=== PATIENT | female | born 1955 | race Caucasian/White ===

== ENCOUNTER 2018-04-08 21:58 | Emergency (ER) | payer OTHER ==
--- NOTE | 2018-04-08 23:36 | ER ---
Nurse's Notes [facility] Name: Rhona Muller Age: 63 yrs Sex: Female : 1955 Arrival Date: 04/08/2018 Time: 22:01 Bed 27 Private MD: Charles Raphael S Diagnosis: Subdural hematoma Presentation: 04/08 22:17 Presenting complaint: EMS states: patient is a resident at [facility]. A staff member kr2 saw her walking and then fall to the floor. They state they immediately went over to her, she was awake, no obvious injuries. She has a history of falls and bruise noted to left shoulder. Care prior to arrival: Cervical collar in place. Placed on backboard. Mechanism of Injury: Fall from standing position. Trauma event details: Injury occurred in the [facility], Injury occurred: in a public building. Injury occurred: April 08, 2018 Injury occurred at: 22:00. 22:17 Acuity: ROYER 3 kr2 22:17 Method Of Arrival: EMS: [facility] kr2 22:25 Transition of care: patient was not received from another setting of care. Onset of kr2 symptoms was April 08, 2018. Risk Assessment: Do you want to hurt yourself or someone else? Patient reports no desire to harm self or others. Initial Sepsis Screen: Does the patient meet any 2 criteria? No. Patient's initial sepsis screen is negative. Does the patient have a suspected source of infection? No. Patient's initial sepsis screen is negative. Trauma Activation: Not Applicable Physician: ED Physician; Name: ; Notified At: ; Arrived At: Physician: General Surgeon; Name: ; Notified At: ; Arrived At: Physician: Radiology; Name: ; Notified At: ; Arrived At: Physician: Respiratory; Name: ; Notified At: ; Arrived At: Physician: Lab; Name: ; Notified At: ; Arrived At: Historical: - Allergies: 22:32 Xylocaine; kr2 - Home Meds: 22:32 amitriptyline 10 mg Oral tab 1 tab daily [Active]; Restoril 7.5 mg Oral cap 2 caps once kr2 daily [Active]; Sinemet 25-100 mg Oral tab 2 tabs daily [Active]; meloxicam 15 mg oral tab 1 tab once daily [Active]; rivastigimine patch 24 hour 1 patch daily [Active]; 23:03 docusate sodium 100 mg Oral cap 1 cap once daily [Active]; aspirin 81 mg Oral TbEC 1 kr2 tab once daily [Active]; lisinopril 10 mg Oral tab 1 tab once daily [Active]; levothyroxine 50 mcg tab 1 tab once daily [Active]; Sinemet 25-100 mg Oral tab 1 tab twice a day [Active]; Creon 24,000-76,000 -120,000 unit oral cpDR 1 caps 3 times per day [Active]; entacapone 200 mg oral tab 1 tab 2 times per day [Active]; metoprolol tartrate 25 mg Oral tab 1 tab 2 times per day [Active]; folic acid 1 mg Oral tab 1 tab twice a day [Active]; polyethylene glycol 3350 17 gram/dose oral powd once daily [Active]; - PMHx: 22:32 Anemia; dysphagia; Hypertension; Hyperlipidemia; Depression; cognitive impairment; kr2 Parkinsons; lack of coordination; cognitive communition deficit; GERD; Hypothyroidism; metabolic encephalopathy; muscle weakness; polyosteoarthritis; - PSHx: 23:03 Nerve stimulator for Parkinson's; kr2 - Immunization history: Last tetanus immunization: unknown. - Social history:: Smoking status: Patient/guardian denies using tobacco. - Ebola Screening: : No symptoms or risks identified at this time. Screenin:17 Abuse screen: Denies threats or abuse. Denies injuries from another. Nutritional kr2 screening: No deficits noted. Tuberculosis screening: No symptoms or risk factors identified. Fall Risk Fall in past 12 months (25 points). Secondary diagnosis (15 points) impaired mobility, Parkinson's. Gait- Impaired (20 pts.). Mental Status- Overestimates/Forgets Limitations (15 pts.). Primary Survey: 22:22 A: Airway: patent. Breathing/Chest: Respiratory pattern: regular, Respiratory effort: kr2 spontaneous, unlabored, Breath sounds: clear, bilaterally. Chest inspection: symmetrical rise and fall of the chest. Circulation: Heart tones present. Skin color: pink, Skin temperature: warm, dry. Disability Alert. 22:50 Reassessment Breathing/Chest Respiratory pattern Regular Respiratory effort Spontaneous kr2 Unlabored Breath sounds Clear Chest inspection Symmetrical. Assessment: 22:17 General: Appears in no apparent distress. comfortable, well groomed, Behavior is calm, kr2 cooperative. Pain: Complains of pain in left arm Unable to use pain scale. Does not appear to understand pain scale. Patient appears to be grimacing, to be guarding. Neuro: Level of Consciousness is awake, alert, Oriented to person, History of Parkinson's, unable to clearly verbalize thoughts. Job Setter are equal bilaterally Facial symmetry appears normal. 22:54 Reassessment: Patient appears in no apparent distress at this time. Patient and/or kr2 family updated on plan of care and expected duration. Pain level reassessed. Patient returned from radiology department at this time. Cardiovascular: Capillary refill < 3 seconds in bilateral fingers Patient's skin is warm and dry. Respiratory: Airway is patent Respiratory effort is even, unlabored, Respiratory pattern is regular, symmetrical. GI: Abdomen is flat, non-distended, Bowel sounds present X 4 quads. EENT: Nares are clear bilaterally Oral mucosa is moist. Derm: Skin is intact, with poor turgor Skin is pink, warm \T\ dry. Bruising that is yellow, on left eye and left mormon. Musculoskeletal: Circulation, motion, and sensation intact. Swelling present in left elbow. 04/09 01:01 Reassessment: Patient appears in no apparent distress at this time. Patient and/or kr2 family updated on plan of care and expected duration. Pain level reassessed. Patient is alert, oriented x 3, equal unlabored respirations, skin warm/dry/pink. Spoke with nurse José Miguel at [facility] and informed them of need for transfer. Vital Signs: 04/08 22:23 BP 124 / 50; Pulse 63; Resp 18; Temp 98.3; Pulse Ox 100% on R/A; Weight 48.99 kg; kr2 Height 5 ft. 7 in. (170.18 cm); 04/09 00:00 BP 128 / 78; Pulse 66; Resp 17; Pulse Ox 100% ; kr2 01:05 BP 127 / 67; Pulse 67; Resp 17; Pulse Ox 100% ; kr2 04/08 22:23 Body Mass Index 16.92 (48.99 kg, 170.18 cm) kr2 [place] Coma Score: 04/08 22:23 Eye Response: spontaneous(4). Verbal Response: incomprehensible(2). Motor Response: kr2 obeys commands(6). Total: 12. Trauma Score (Adult): 22:23 Eye Response: spontaneous(1); Verbal Response: incomprehensible(0); Motor Response: kr2 obeys commands(2); Systolic BP: > 89 mm Hg(4); Respiratory Rate: 10 to 29 per min(4); Andria Score: 12; Trauma Score: 11 ED Course: 22:01 Patient arrived in ED. ds1 22:10 Charles Raphael MD is Private Physician. ds1 22:15 Patient has correct armband on for positive identification. Bed in low position. Call kr2 light in reach. Side rails up X2. Adult w/ patient. Pulse ox on. NIBP on. Door closed. Warm blanket given. Dr. Laguerre and JOSE ALBERTO Valenzuela at bedside, backboard removed by physician while maintaining C-Spine immobilization. 22:15 Patient maintains SpO2 saturation greater than 95% on room air. Thermoregulation: warm kr2 blanket given to patient. 22:17 Kayla Lowery RN is Primary Nurse. kr2 22:18 Mikie Laguerre MD is Attending Physician. tw4 22:20 Triage completed. kr2 22:[address] via stretcher. jg6 22:25 Arm band placed on right wrist. kr2 22:42 CT Head C Spine In Process Unspecified. EDMS 22:51 Elbow Left 3 View XRAY In Process Unspecified. EDMS 22:51 Humerus Left XRAY In Process Unspecified. EDMS 23:30 Missed attempt(s): 22 gauge in right antecubital area. Bleeding controlled, band aid kr2 applied, catheter tip intact. 23:35 Inserted saline lock: 20 gauge in right forearm, using aseptic technique. Blood kr2 collected. 04/09 01:03 No provider procedures requiring assistance completed. Patient transferred, IV remains kr2 in place. Administered Medications: No medications were administered Intake: 01:04 PO: 0ml; Total: 0ml. kr2 Outcome: 04/08 23:35 ER care complete, transfer ordered by . tw4 04/09 01:03 Transferred by ground EMS to [facility], Transfer form completed. kr2 X-rays sent w/ patient. Note: Spouse with patient Condition: stable Instructed on the need for admit, Demonstrated understanding of instructions. 01:04 Patient's length of stay was not longer than 2 hours. kr2 01:06 Patient left the ED. kr2 Signatures: Dispatcher [employer] EDCiera Daniel ds1 Kayla Lowery RN RN kr2 Mikie Laguerre MD MD tw4 Kim [email or web address]
--- NOTE | 2018-04-08 23:36 | EDPHYS ---
Physician Documentation [facility] Name: Rhona Muller Age: 63 yrs Sex: Female : 1955 Arrival Date: 04/08/2018 Time: 22:01 Bed 27 Private MD: Charles Raphael S ED Physician Mikie Laguerre HPI: 04/09 00:16 This 63 yrs old Female presents to ER via EMS with complaints of Fall Injury. tw4 00:16 Details of fall: The patient fell from an upright position, while standing. Onset: The tw4 symptoms/episode began/occurred today. Associated injuries: The patient sustained injury to the head, contusion. Severity of symptoms: At their worst the symptoms were mild, in the emergency department the symptoms are unchanged. Unable to obtain HPI due to baseline dementia. The patient has experienced similar episodes in the past, a few times, patient has has a recent of falls . Historical: - Allergies: 04/08 22:32 Xylocaine; kr2 - Home Meds: 22:32 amitriptyline 10 mg Oral tab 1 tab daily [Active]; Restoril 7.5 mg Oral cap 2 caps once kr2 daily [Active]; Sinemet 25-100 mg Oral tab 2 tabs daily [Active]; meloxicam 15 mg oral tab 1 tab once daily [Active]; rivastigimine patch 24 hour 1 patch daily [Active]; 23:03 docusate sodium 100 mg Oral cap 1 cap once daily [Active]; aspirin 81 mg Oral TbEC 1 kr2 tab once daily [Active]; lisinopril 10 mg Oral tab 1 tab once daily [Active]; levothyroxine 50 mcg tab 1 tab once daily [Active]; Sinemet 25-100 mg Oral tab 1 tab twice a day [Active]; Creon 24,000-76,000 -120,000 unit oral cpDR 1 caps 3 times per day [Active]; entacapone 200 mg oral tab 1 tab 2 times per day [Active]; metoprolol tartrate 25 mg Oral tab 1 tab 2 times per day [Active]; folic acid 1 mg Oral tab 1 tab twice a day [Active]; polyethylene glycol 3350 17 gram/dose oral powd once daily [Active]; - PMHx: 22:32 Anemia; dysphagia; Hypertension; Hyperlipidemia; Depression; cognitive impairment; kr2 Parkinsons; lack of coordination; cognitive communition deficit; GERD; Hypothyroidism; metabolic encephalopathy; muscle weakness; polyosteoarthritis; - PSHx: 23:03 Nerve stimulator for Parkinson's; kr2 - Immunization history: Last tetanus immunization: unknown. - Social history:: Smoking status: Patient/guardian denies using tobacco. - Ebola Screening: : No symptoms or risks identified at this time. ROS: 04/09 00:16 Constitutional: Negative for fever, chills, and weight loss, Eyes: Negative for injury, tw4 pain, redness, and discharge, Cardiovascular: Negative for chest pain, palpitations, and edema, Respiratory: Negative for shortness of breath, cough, wheezing, and pleuritic chest pain, Abdomen/GI: Negative for abdominal pain, nausea, vomiting, diarrhea, and constipation, Back: Negative for injury and pain, MS/Extremity: Negative for injury and deformity, Skin: Negative for injury, rash, and discoloration. Exam: 00:16 Constitutional: This is a well developed, well nourished patient who is awake, alert, tw4 and in no acute distress. 00:16 Chest/axilla: Normal chest wall appearance and motion. Nontender with no deformity. No lesions are appreciated. Cardiovascular: Regular rate and rhythm with a normal S1 and S2. No gallops, murmurs, or rubs. Normal PMI, no JVD. No pulse deficits. Respiratory: Lungs have equal breath sounds bilaterally, clear to auscultation and percussion. No rales, rhonchi or wheezes noted. No increased work of breathing, no retractions or nasal flaring. Abdomen/GI: Soft, non-tender, with normal bowel sounds. No distension or tympany. No guarding or rebound. No evidence of tenderness throughout. Back: No spinal tenderness. No costovertebral tenderness. Full range of motion. MS/ Extremity: Pulses equal, no cyanosis. Neurovascular intact. Full, normal range of motion. Neuro: Awake and alert, GCS 15, oriented to person, place, time, and situation. Cranial nerves II-XII grossly intact. Motor strength 5/5 in all extremities. Sensory grossly intact. Cerebellar exam normal. Normal gait. 00:16 Head/face: Noted is ecchymosis, hematoma, of the left cheek. Vital Signs: 04/08 22:23 BP 124 / 50; Pulse 63; Resp 18; Temp 98.3; Pulse Ox 100% on R/A; Weight 48.99 kg; kr2 Height 5 ft. 7 in. (170.18 cm); 04/09 00:00 BP 128 / 78; Pulse 66; Resp 17; Pulse Ox 100% ; kr2 01:05 BP 127 / 67; Pulse 67; Resp 17; Pulse Ox 100% ; kr2 04/08 22:23 Body Mass Index 16.92 (48.99 kg, 170.18 cm) kr2 Andria Coma Score: 04/08 22:23 Eye Response: spontaneous(4). Verbal Response: incomprehensible(2). Motor Response: kr2 obeys commands(6). Total: 12. Trauma Score (Adult): 22:23 Eye Response: spontaneous(1); Verbal Response: incomprehensible(0); Motor Response: kr2 obeys commands(2); Systolic BP: > 89 mm Hg(4); Respiratory Rate: 10 to 29 per min(4); Andria Score: 12; Trauma Score: 11 MDM: 22:18 Patient medically screened. tw4 04/09 00:16 Differential diagnosis: abrasion, closed head injury, contusion, multiple trauma. Data tw4 reviewed: vital signs, nurses notes. Counseling: I had a detailed discussion with the patient and/or guardian regarding: the historical points, exam findings, and any diagnostic results supporting the discharge/admit diagnosis, radiology results. 04/08 23:16 Order name: Basic Metabolic Panel tw4 04/08 23:16 Order name: CBC with Diff tw4 04/08 23:16 Order name: Creatinine for Radiology tw4 04/08 23:16 Order name: Type And Screen tw4 04/08 23:16 Order name: PT-INR tw4 04/08 23:16 Order name: Ptt, Activated tw4 04/08 22:19 Order name: CT Head C Spine tw4 04/08 22:19 Order name: Elbow Left 3 View XRAY tw4 04/08 22:19 Order name: Humerus Left XRAY tw4 04/08 23:16 Order name: Labs collected and sent; Complete Time: 00:00 tw4 Administered Medications: No medications were administered Disposition: 04/08/18 23:[address] [facility]. Diagnosis is Subdural hematoma. - Reason for transfer: Higher level of care. - Accepting physician is Dr Muse. - Condition is Stable. - Problem is new. - Symptoms have improved. Signatures: Dispatcher [employer] Kayla Cortez, RN RN kr2 Mikie Laguerre MD MD tw4 Corrections: (The following items were deleted from the chart) 01:06 04/08 23:35 04/08/2018 23:[address] [facility]. kr2 Diagnosis is Subdural hematoma. Reason for transfer: Higher level of care. Accepting physician is Dr Muse. Condition is Stable. Problem is new. Symptoms have improved. tw4
[2018-04-08 23:49] LABS: Absolute Lymphocytes (CBC) 1.8 K/uL (0.7-4.9); Absolute Monocytes 0.9 K/uL (0.1-1.3); Absolute Neutrophil 8.4 K/uL (1.8-8.0); Eosinophils % 0.3 % (0-4.4); Hematocrit 34.4 % (36.0-45.0); Lymphocytes % 16.3 % (15.3-44.8); MCV 91.5 fL (80-100); MPV 7.3 fL (7.6-11.3); Monocytes % 7.8 % (3.3-12.3); RBC Red Blood Cell Count 3.76 M/uL (3.86-4.86)
[2018-04-08 23:52] LABS: Protime INR 1.03
[2018-04-09 00:06] LABS: BUN Blood Urea Nitrogen 23 mg/dL (7-18); Bicarbonate 27 mmol/L (21-32); Glucose Level 93 mg/dL (74-106); Potassium 4.3 mmol/L (3.5-5.1); Sodium Level 140 mmol/L (136-145)
--- NOTE | 2018-04-09 08:01 | RAD REPORT ---
EXAM DESCRIPTION: RAD - Elbow Left 3 View - 04/08/2018 10:53 pm CLINICAL HISTORY: Left elbow pain status post trauma FINDINGS: No fracture or dislocation is seen. The bones are osteoporotic
--- NOTE | 2018-04-09 08:02 | RAD REPORT ---
EXAM DESCRIPTION: RAD - Humerus Left - 04/08/2018 10:53 pm CLINICAL HISTORY: Left arm pain status post fall FINDINGS: No fracture is seen. The bones is osteoporotic
--- NOTE | 2018-04-09 08:35 | RAD REPORT ---
EXAM DESCRIPTION: CT - Head C Spine Mpr Wo Con - 04/08/2018 10:42 pm CLINICAL HISTORY: Head and neck injury status post fall. Head and neck pain COMPARISON: CT head 2016 TECHNIQUE: Computed axial tomography of the head and cervical spine was obtained. Sagittal and coronal reconstruction was performed. Preliminary report was generated by virtual radiol ogic and reviewed prior to this dictation All CT scans are performed using dose optimization technique as appropriate and may include automated exposure control or mA/KV adjustment according to patient size. FINDINGS: Neuro stimulator leads are in place. A relatively small low to intermediate density subdural hematoma is present along the left frontal pa rietal convexity. Shift of the midline structures is not noted. The ventricles are normal in caliber. 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 A cervical fracture is not visualized. No dislocation is noted. Spondylosis involves the mid and dist al cervical spine IMPRESSION: Relatively small subdural hematoma along the left frontal parietal convexity has the poornima earance of being late subacute to chronic. A cervical fracture is not visualized.
== END 2018-04-09 01:06 | disposition short-term general hospital (02) ==
LOC: ER 21:58
DX: S06.5X9A Traumatic subdural hemorrhage with loss of consciousness of unspecified duration, initial encounter (principal); W19.XXXA Unspecified fall, initial encounter; Z88.4 Allergy status to anesthetic agent
CPT/HCPCS: 36415; 70450; 72125; 80048; 85025; 85610; 85730; 86850; 86900; 86901; 99285

== ENCOUNTER 2018-04-23 04:41 | Emergency (ER) | payer OTHER ==
--- NOTE | 2018-04-23 06:44 | ER ---
Nurse's Notes [facility] Name: Rhona Muller Age: 63 yrs Sex: Female : 1955 Arrival Date: 04/23/2018 Time: 04:42 Bed 20 Private MD: Diagnosis: Old subdural hematoma left cerebral convexity Presentation: 04/23 04:42 Presenting complaint: EMS states: pt sat on floor from standing and leaned back hitting ak1 her head on the dresser. No LOC. pt is A\T\OX1, WNL for pt per [facility]. no hematoma noted to back of head. Transition of care: patient was not received from another setting of care. Onset of symptoms was April 23, 2018. Risk Assessment: Do you want to hurt yourself or someone else? Patient reports no desire to harm self or others. Initial Sepsis Screen: Does the patient meet any 2 criteria? No. Patient's initial sepsis screen is negative. Does the patient have a suspected source of infection? No. Patient's initial sepsis screen is negative. Care prior to arrival: None. 04:42 Method Of Arrival: EMS: [facility] ak1 04:42 Acuity: ROYER 3 ak1 Triage Assessment: 04:47 General: Appears in no apparent distress. General: Behavior is calm, cooperative. Pain: ak1 Denies pain. Historical: - Allergies: 04:47 Xylocaine; ak1 - Home Meds: 04:47 amitriptyline 10 mg Oral tab 1 tab daily [Active]; aspirin 81 mg Oral TbEC 1 tab once ak1 daily [Active]; Creon 24,000-76,000 -120,000 unit Oral cpDR 1 caps 3 times per day [Active]; docusate sodium 100 mg Oral cap 1 cap once daily [Active]; entacapone 200 mg Oral tab 1 tab 2 times per day [Active]; folic acid 1 mg Oral tab 1 tab twice a day [Active]; levothyroxine 50 mcg tab 1 tab once daily [Active]; lisinopril 10 mg Oral tab 1 tab once daily [Active]; meloxicam 15 mg Oral tab 1 tab once daily [Active]; metoprolol tartrate 25 mg Oral tab 1 tab 2 times per day [Active]; polyethylene glycol 3350 17 gram/dose Oral powd once daily [Active]; Restoril 7.5 mg Oral cap 2 caps once daily [Active]; rivastigimine patch 24 hour 1 patch daily [Active]; Sinemet 25-100 mg Oral tab 2 tabs daily [Active]; Sinemet 25-100 mg Oral tab 1 tab twice a day [Active]; - PMHx: 04:47 Anemia; cognitive communition deficit; cognitive impairment; Depression; DYSPHAGIA; ak1 GERD; Hyperlipidemia; Hypertension; Hypothyroidism; metabolic encephalopathy; polyosteoarthritis; Parkinsons; MUSCLE WEAKNESS; LACK OF COORDINATION; - PSHx: 04:47 Nerve stimulator for Parkinson's; ak1 - Immunization history:: Adult Immunizations unknown. - Social history:: Smoking status: Patient/guardian denies using tobacco. - Ebola Screening: : No symptoms or risks identified at this time. Screenin:49 Abuse screen: Denies threats or abuse. Denies injuries from another. Nutritional ak1 screening: No deficits noted. Tuberculosis screening: No symptoms or risk factors identified. Fall Risk Gait- Weak (10 pts.). Assessment: 04:43 General: Appears in no apparent distress. comfortable, Behavior is calm, cooperative. jd3 Pain: Denies pain. Neuro: Level of Consciousness is awake, alert, confused, Oriented to person. Cardiovascular: Heart tones S1 S2 present Capillary refill < 3 seconds Patient's skin is warm and dry. Respiratory: Airway is patent Respiratory effort is even, unlabored, Respiratory pattern is regular, symmetrical, Breath sounds are clear bilaterally. GI: Abdomen is round non-distended, Bowel sounds present X 4 quads. Abd is soft and non tender X 4 quads. : No signs and/or symptoms were reported regarding the genitourinary system. EENT: No signs and/or symptoms were reported regarding the EENT system. Derm: Skin is intact, Skin is dry, Skin is normal, Skin temperature is warm. Musculoskeletal: Circulation, motion, and sensation intact. Range of motion: intact in all extremities. 05:31 Reassessment: Patient appears in no apparent distress at this time. No changes from jd3 previously documented assessment. Patient and/or family updated on plan of care and expected duration. Pain level reassessed. 06:20 Reassessment: Patient appears in no apparent distress at this time. No changes from jd3 previously documented assessment. Patient and/or family updated on plan of care and expected duration. Pain level reassessed. 06:56 Reassessment: Patient appears in no apparent distress at this time. No changes from jd3 previously documented assessment. Patient and/or family updated on plan of care and expected duration. Pain level reassessed. discharge instructions given to pt's family member, family reported understanding of discharge instructions. Vital Signs: 04:47 BP 127 / 63; Pulse 56; Resp 16; Temp 97.8(O); Pulse Ox 100% on R/A; Weight 72.57 kg ak1 (R); Height 5 ft. 7 in. (170.18 cm) (R); Pain 0/10; 05:31 BP 119 / 59; Pulse 54; Resp 18 S; Pulse Ox 98% on R/A; jd3 06:19 BP 117 / 66; Pulse 57; Resp 16 S; Pulse Ox 100% on R/A; Pain 0/10; jd3 04:47 Body Mass Index 25.06 (72.57 kg, 170.18 cm) ak1 ED Course: 04:42 Patient arrived in ED. ak1 04:42 Jeremiah Vaz, RN is Primary Nurse. jd3 04:42 Pee Carrera MD is Attending Physician. pkl 04:44 Triage completed. ak1 04:47 Arm band placed on Patient placed in an exam room, on a stretcher, on pulse oximetry, ak1 Patient notified of wait time. 04:49 Patient has correct armband on for positive identification. Bed in low position. Call ak1 light in reach. Side rails up X2. Adult w/ patient. Pulse ox on. NIBP on. 05:[address] via stretcher. kw1 05:55 CT completed. Patient tolerated procedure well. Patient moved back from CT. kw1 05:57 CT Head Brain wo Cont In Process Unspecified. EDMS 06:56 No provider procedures requiring assistance completed. Patient did not have IV access jd3 during this emergency room visit. Administered Medications: No medications were administered Outcome: 06:44 Discharge ordered by . pkl 06:56 Discharged to home via wheelchair, with family. jd3 06:56 Condition: stable 06:56 Discharge instructions given to family, Instructed on discharge instructions, follow up and referral plans. Demonstrated understanding of instructions, follow-up care. 06:59 Patient left the ED. jd3 Signatures: Dispatcher [employer] EDMS Carrera, Pin, MD MD pkl Krenek, Tiffany, RN RN ak1 Jeremiah Vaz RN RN jd3 Arabella Badillo1 Corrections: (The following items were deleted from the chart) 04:46 04:43 Neuro: Level of Consciousness is awake, alert, obeys commands, Oriented to jd3 person, jd3
--- NOTE | 2018-04-23 06:44 | EDPHYS ---
Physician Documentation [facility] Name: Rhona Muller Age: 63 yrs Sex: Female : 1955 Arrival Date: 04/23/2018 Time: 04:42 Bed 20 Private MD: ED Physician Pee Carrera HPI: 04/23 04:54 This 63 yrs old Female presents to ER via EMS with unknown complaint. pkl 04:54 The patient or guardian reports pain. The complaints affect the occipital area. Context pkl of injury: resulted from a fall. Onset: The symptoms/episode began/occurred just prior to arrival. Associated signs and symptoms: The patient has no apparent associated signs or symptoms, Loss of consciousness: This patient did not experience any loss of consciousness. Historical: - Allergies: 04:47 Xylocaine; ak1 - Home Meds: 04:47 amitriptyline 10 mg Oral tab 1 tab daily [Active]; aspirin 81 mg Oral TbEC 1 tab once ak1 daily [Active]; Creon 24,000-76,000 -120,000 unit Oral cpDR 1 caps 3 times per day [Active]; docusate sodium 100 mg Oral cap 1 cap once daily [Active]; entacapone 200 mg Oral tab 1 tab 2 times per day [Active]; folic acid 1 mg Oral tab 1 tab twice a day [Active]; levothyroxine 50 mcg tab 1 tab once daily [Active]; lisinopril 10 mg Oral tab 1 tab once daily [Active]; meloxicam 15 mg Oral tab 1 tab once daily [Active]; metoprolol tartrate 25 mg Oral tab 1 tab 2 times per day [Active]; polyethylene glycol 3350 17 gram/dose Oral powd once daily [Active]; Restoril 7.5 mg Oral cap 2 caps once daily [Active]; rivastigimine patch 24 hour 1 patch daily [Active]; Sinemet 25-100 mg Oral tab 2 tabs daily [Active]; Sinemet 25-100 mg Oral tab 1 tab twice a day [Active]; - PMHx: 04:47 Anemia; cognitive communition deficit; cognitive impairment; Depression; DYSPHAGIA; ak1 GERD; Hyperlipidemia; Hypertension; Hypothyroidism; metabolic encephalopathy; polyosteoarthritis; Parkinsons; MUSCLE WEAKNESS; LACK OF COORDINATION; - PSHx: 04:47 Nerve stimulator for Parkinson's; ak1 - Immunization history:: Adult Immunizations unknown. - Social history:: Smoking status: Patient/guardian denies using tobacco. - Ebola Screening: : No symptoms or risks identified at this time. ROS: 04:54 Eyes: Negative for injury, pain, redness, and discharge, ENT: Negative for injury, pkl pain, and discharge, Neck: Negative for injury, pain, and swelling, Cardiovascular: Negative for chest pain, palpitations, and edema, Respiratory: Negative for shortness of breath, cough, wheezing, and pleuritic chest pain, Abdomen/GI: Negative for abdominal pain, nausea, vomiting, diarrhea, and constipation, Back: Negative for injury and pain, : Negative for injury, bleeding, discharge, and swelling, MS/Extremity: Negative for injury and deformity, Skin: Negative for injury, rash, and discoloration. 04:54 Neuro: Negative for altered mental status, loss of consciousness. Exam: 04:54 Eyes: Pupils equal round and reactive to light, extra-ocular motions intact. Lids and pkl lashes normal. Conjunctiva and sclera are non-icteric and not injected. Cornea within normal limits. Periorbital areas with no swelling, redness, or edema. 04:54 Head/face: Noted is contusion, tenderness, of the occipital region. 04:54 ENT: Exam is negative for acute changes. 04:54 Neck: Exam negative for obvious evidence of injury or deformity, nuchal rigidity. 04:54 Chest/axilla: Exam negative for acute changes. 04:54 Cardiovascular: Rate: normal, Rhythm: regular. 04:54 Respiratory: the patient does not display signs of respiratory distress, Respirations: normal, Breath sounds: are clear throughout. 04:54 Abdomen/GI: Exam negative for acute changes. 04:54 Back: Exam negative for acute changes. 04:54 : Exam negative for acute changes. 04:54 Musculoskeletal/extremity: Exam is negative for acute changes. 04:54 Skin: Exam negative for rash. 04:54 Neuro: Orientation: is normal, Mentation: is normal, Cranial nerves: grossly normal, Motor: is normal. Vital Signs: 04:47 BP 127 / 63; Pulse 56; Resp 16; Temp 97.8(O); Pulse Ox 100% on R/A; Weight 72.57 kg ak1 (R); Height 5 ft. 7 in. (170.18 cm) (R); Pain 0/10; 05:31 BP 119 / 59; Pulse 54; Resp 18 S; Pulse Ox 98% on R/A; jd3 06:19 BP 117 / 66; Pulse 57; Resp 16 S; Pulse Ox 100% on R/A; Pain 0/10; jd3 04:47 Body Mass Index 25.06 (72.57 kg, 170.18 cm) ak1 MDM: 04:42 Patient medically screened. pkl 06:30 Data reviewed: vital signs, nurses notes, radiologic studies, CT scan. ED course: pkl Discussed CT Scan findings with . Mentioned subdural hematoma is now slightly bigger than the the one done on 04/08/18. said the neurosurgeon that saw the patient at that thought the subdural hematoma was old and decided to observe the subdural hematoma. Advised to follow up with the neurosurgeon in 1 to 2 days for further evaluations. understood instructions. 04/23 04:52 Order name: CT Head Brain wo Cont pkl Administered Medications: No medications were administered Disposition: 04/23/18 06:44 Discharged to Home. Impression: Old subdural hematoma left cerebral convexity. - Condition is Stable. - Medication Reconciliation Form, Thank You Letter, Antibiotic Education, Prescription Opioid Use form. - Follow up: Private Physician; When: 1 - 2 days; Reason: Re-evaluation by your physician. - Problem is chronic. - Symptoms are unchanged. Signatures: Dispatcher [employer] EDMS Pee Carrera MD MD pkl Tiffany Lacy RN RN ak1 Jeremiah Vaz RN RN jd3 Corrections: (The following items were deleted from the chart) 06:59 06:44 04/23/2018 06:44 Discharged to Home. Impression: Old subdural hematoma left jd3 cerebral convexity. Condition is Stable. Forms are Medication Reconciliation Form, Thank You Letter, Antibiotic Education, Prescription Opioid Use. Follow up: Private Physician; When: 1 - 2 days; Reason: Re-evaluation by your physician. Problem is chronic. Symptoms are unchanged. pkl
--- OUTSIDE RECORDS SUMMARY | 2018-04-23 08:20 | XMS REPORT | Clinical Summary ---
:1955 Author Organization [facility] Address [address] [place] [address] Phone Care Team Providers Name Role Phone Unavailable Primary Care Provider Unavailable Allergies Active Allergy Reactions Severity Noted Date Comments Lidocaine Hcl Other (See Comments) 04/19/2015 "heart stopped beating" Current Medications Prescription Sig. Disp. Refills Start Date End Date Status lisinopril Take 10 mg by Active (PRINIVIL,ZESTRIL) 10 mouth daily. MG tablet levothyroxine Take 50 mcg Active (SYNTHROID, LEVOTHROID) by mouth 50 MCG tablet daily. metoprolol (LOPRESSOR) Take 50 mg by Active 50 MG tablet mouth 2 (two) times daily. pancrelipase, Take 24,000 Active Sub-Cdbi-Lfkp, (CREON) units of 24,000-76,000 -120,000 lipase by unit CpDR capsule mouth 3 (three) times daily with meals. temazepam (RESTORIL) 15 Take 15 mg by Active mg capsule mouth every night as needed for Sleep. entacapone (COMTAN) 200 Take 200 mg Active mg tablet by mouth 3 (three) times daily . amitriptyline (ELAVIL) Take 10 mg by Active 10 MG tablet mouth nightly. carbidopa-levodopa Take 1 tablet Active (PARCOPA) 25-100 mg per by mouth 3 disintegrating tablet (three) times daily. carbidopa-levodopa Take 1 tablet Active (SINEMET CR) 25-100 mg by mouth per tablet nightly. rivastigmine (EXELON) Place 1 patch Active 4.6 mg/24 hr onto the skin patchIndications: daily. Dementia associated with Parkinson's Disease folic acid (FOLVITE) 1 Take 1 mg by Active MG tablet mouth 2 (two) times daily. estradiol (ESTRACE) 1 Take 1 mg by Active MG tablet mouth daily. atorvastatin (LIPITOR) Take 10 mg by 04/09/2018 Discontinued 10 MG tablet mouth daily. sertraline (ZOLOFT) 100 Take 100 mg 04/09/2018 Discontinued MG tablet by mouth daily. fenofibrate (TRICOR) Take 145 mg 04/09/2018 Discontinued 145 MG tablet by mouth daily. amantadine HCl Take 100 mg 04/09/2018 Discontinued (SYMMETREL) 100 mg by mouth capsule daily. dexlansoprazole 60 mg Take 60 mg by 04/09/2018 Discontinued capsule mouth daily. pramipexole (MIRAPEX) Take 0.25 mg 04/09/2018 Discontinued 0.25 MG tablet by mouth 3 (three) times daily. meloxicam (MOBIC) 15 MG Take 15 mg by 04/09/2018 Discontinued tablet mouth daily. aspirin 81 MG EC tablet Take 81 mg by 04/09/2018 Discontinued mouth daily. Active Problems Problem Noted Date Acute on chronic intracranial subdural hematoma (HCC) 04/09/2018 Encounters Date Type Specialty Care Team Description 04/09/2018 Hospital Encounter Intensive Care Loco Muse Acute on chronic MD Shawn intracranial subdural hematoma (HCC);Acute encephalopathy after 04/22/2017 Social History Tobacco Use Types Packs/Day Years Used Date Never Smoker Smokeless Tobacco: Never Used Alcohol Use Drinks/Week oz/Week Comments No Sex Assigned at Date Recorded Not on file Last Filed Vital Signs Vital Sign Reading Time Taken Blood Pressure 104/62 04/09/2018 1:40 PM CDT Pulse 58 04/09/2018 1:40 PM CDT Temperature 36.9 C (98.4 F) 04/09/2018 8:00 AM CDT Respiratory Rate 16 04/09/2018 1:13 PM CDT Oxygen Saturation 100% 04/09/2018 1:40 PM CDT Inhaled Oxygen Concentration - - Weight 50.1 kg (110 lb 8 oz) 04/09/2018 2:30 AM CDT Height 170.2 cm (5' 7") 04/09/2018 2:30 AM CDT Body Mass Index 17.31 04/09/2018 2:30 AM CDT Plan of Treatment Not on file Results RHYTHM STRIP - SCAN (04/16/2018 8:51 AM)POC-Glucose meter (04/09/2018 1:01 PM) Only the most recent of2 resultswithin the time period is included. Component Value Ref Range POC-Glucose Meter 95Comment: TESTED AT [facility] [address] [place] [address] 70 - 110 mg/dL [address]49 Specimen Performing Laboratory Blood [facility] [address] [address] [address] brain without IV contrast portable (04/09/2018 6:39 AM) Specimen Performing Laboratory GE RIS Narrative FINAL REPORT EXAM: CT head without contrast. CLINICAL HISTORY: sdh COMPARISON: None. TECHNIQUE: Portable CT images of the head were obtained without intravenous contrast.This exam was performed according to our departmental dose optimization program which includes automated exposure control, adjustment of the mA and/or kV according to patient's size and/or use of iterative reconstructive technique. FINDINGS: The study is limited by motion artifact and portable technique. There are bilateral subthalamic electrodes with resultant streak artifact. There is a small left convexity mildly hyperdense subdural collection measuring 9 mm in maximum thickness, with mild parenchymal mass effect. There is no herniation or hydrocephalus. The basal cisterns are patent. There is generalized parenchymal atrophy. The visualized orbits are normal.The visualized paranasal sinuses and tympanomastoid cavities are clear.The skull base is intact. There are two bilateral parietal billy holes. IMPRESSION: Status post bilateral subthalamic electrode replacement for deep brain stimulation. Small mildly hyperdense left convexity subdural collection compatible with a hematoma with mild parenchymal mass effect. No herniation or hydrocephalus. Signed: Lindsey Soto MD Report Verified Date/Time:04/09/2018 06:49:22 Reading Location: [id number] Transitional Reading Room Procedure Note Interface, External Ris In - 04/09/2018 6:51 AM CDT FINAL REPORT EXAM: CT head without contrast. CLINICAL HISTORY: sdh COMPARISON: None. TECHNIQUE: Portable CT images of the head were obtained without intravenous contrast. This exam was performed according to our departmental dose optimization program which includes automated exposure control, adjustment of the mA and/or kV according to patient's size and/or use of iterative reconstructive technique. FINDINGS: The study is limited by motion artifact and portable technique. There are bilateral subthalamic electrodes with resultant streak artifact. There is a small left convexity mildly hyperdense subdural collection measuring 9 mm in maximum thickness, with mild parenchymal mass effect. There is no herniation or hydrocephalus. The basal cisterns are patent. There is generalized parenchymal atrophy. The visualized orbits are normal. The visualized paranasal sinuses and tympanomastoid cavities are clear. The skull base is intact. There are two bilateral parietal billy holes. IMPRESSION: Status post bilateral subthalamic electrode replacement for deep brain stimulation. Small mildly hyperdense left convexity subdural collection compatible with a hematoma with mild parenchymal mass effect. No herniation or hydrocephalus. Signed: Lindsey Soto MD Report Verified Date/Time: 04/09/2018 06:49:22 Reading Location: [address] Transitional Reading Room Urinalysis w/Microscopic + Reflex to Culture (04/09/2018 4:01 AM) Component Value Ref Range Color, UA Yellow Clarity, UA Clear Specific [place], UA 1.015 1.001 - 1.035 pH, UA 7.0 5.0 - 8.0 Protein, UA Negative Negative Glucose, UA Negative Negative Ketones, UA Negative Negative Bilirubin, UA Negative Negative Blood, UA Negative Negative Nitrite, UA Negative Negative Leukocytes, UA Small (A) Negative Urobilinogen, UA 0.2 0.2 - 1.0 mg/dL RBC, UA 1 /HPF WBC, UA 22 /HPF Mucus Rare Squam Epithel, UA <1 /HPF Amorphous Crystals Rare Specimen Source Specimen Performing Laboratory Urine - Urine, Voided [address] [address] aPTT (04/09/2018 4:01 AM) Component Value Ref Range PTT 27.7 22.5 - 36.0 seconds Specimen Performing Laboratory Blood - Arm, Right [address] [address] Prothrombin time/INR (04/09/2018 4:01 AM) Component Value Ref Range Protime 14.0 11.7 - 14.7 seconds INR 1.1 <=5.9 Specimen Performing Laboratory Blood - Arm, [address] [address] Narrative RECOMMENDED COUMADIN/WARFARIN INR THERAPY RANGES STANDARD DOSE: 2.0 - 3.0 Includes: PROPHYLAXIS for venous thrombosis, systemic embolization; TREATMENT for venous thrombosis and/or pulmonary embolus. HIGH RISK: Target INR is 2.5-3.5 for patients with mechanical heart valves. Urine culture (04/09/2018 4:01 AM) Component Value Ref Range Result See comment Specimen Performing Laboratory Urine - Urine, Voided [address] [address] Narrative <10,000 col/mL skin shaggy >100,000 col/mL skin shaggy Magnesium (04/09/2018 4:01 AM) Component Value Ref Range Magnesium 1.9 1.6 - 2.6 mg/dL Specimen Performing Laboratory Blood - Arm, [address] [address] Narrative Once on admission and Daily AM afterwards Once on admission and Daily AM afterwards Hepatic function panel (04/09/2018 4:01 AM) Component Value Ref Range Protein, Total 6.3 6.0 - 8.3 gm/dL Albumin 3.8 3.5 - 5.0 g/dL Total Bilirubin 0.6 0.2 - 1.2 mg/dL Bilirubin, Direct 0.3 0.1 - 0.5 mg/dL Alkaline Phosphatase 76 40 - 150 U/L AST 17 5 - 34 U/L ALT 16 6 - 55 U/L Specimen Performing Laboratory Blood - Arm, [address] [address] Narrative Once on admission and Daily AM afterwards Once on admission and Daily AM afterwards Basic Metabolic Panel (04/09/2018 4:01 AM) Component Value Ref Range Sodium 137 136 - 145 meq/L Potassium 4.0 3.5 - 5.1 meq/L Chloride 107 98 - 107 meq/L CO2 22 22 - 29 meq/L BUN 16 7 - 21 mg/dL Creatinine 0.52 (L) 0.57 - 1.25 mg/dL Glucose 98 70 - 105 mg/dL Calcium 9.2 8.4 - 10.2 mg/dL EGFR 119Comment: ESTIMATED GFR IS NOT ACCURATE mL/min/1.73 sq m CREATININE CLEARANCE IN PREDICTING GLOMERULAR FILTRATION RATE. ESTIMATED GFR IS NOT APPLICABLE FOR DIALYSIS PATIENTS. Specimen Performing Laboratory Blood - Arm, [address] [address] Narrative Once on admission and Daily AM afterwards Once on admission and Daily AM afterwards after 04/22/2017
--- OUTSIDE RECORDS SUMMARY | 2018-04-23 08:20 | XMS REPORT ---
:1955 [facility] Address [address] [place] [address] [address]. [address] [place] [address] Care Team Providers Name Role Phone MICHELLE PRIETO Unavailable Unavailable Problems This patient has no known problems. Allergies, Adverse Reactions, Alerts This patient has no known allergies or adverse reactions. Medications This patient has no known medications. Results Test Description Test Time Test Comments Text Results Atomic Results Result Comments POCT-GLUCOSE METER 2018-04-09 14:47:00 Test Item Value Reference Range Comments POC-GLUCOSE METER (BEAKER) (test 95 mg/dL 70-110 TESTED AT [facility] [address] [place] [address] [id number]) [facility] [address] POCT-GLUCOSE [id number] 07:00:00 Test Item Value Reference Range Comments POC-GLUCOSE METER (BEAKER) 105 mg/dL 70-110 TESTED AT [address] (test rgar=3825) [facility] [address] CT BRAIN WITHOUT IV CONTRAST - [id number] 06:49:00Reason for exam:-> sdhFINAL REPORT EXAM: CT head without contrast. CLINICAL HISTORY: sdh COMPARISON: None. TECHNIQUE: Portable CT images of the head were obtained without intravenous contrast. This exam was performed according to our departmental dose optimization program which includes automated exposure control, adjustment of the mA and/or kV according to patient' s size and/or use of iterative reconstructive technique. [...] bilateral subthalamic electrode replacement for deep brain stimulation.Small mildly hyperdense left convexity subdural collection compatible with a hematoma with mild parenchymal mass effect. No herniation or hydrocephalus. Signed: Lindsey Sotoort Verified Date/Time: 04/09/2018 06:49:22 Reading Location: [address] Transitional Reading Room Electronically signedby: LINDSEY SOTO MD on 04/09/2018 06:49 [id number] 04:32:00 Test Item Value Reference Range Comments MAGNESIUM (BEAKER) (test zciq=036) 1.9 mg/dL 1.6-2.6 Once on admission and Daily AM afterwardsOnce on admission and Daily AM afterwardsBASIC METABOLIC [id number] 04:32:00 Test Item Value Reference Range Comments SODIUM (BEAKER) (test 137 meq/L 136-145 crkc=982) POTASSIUM (BEAKER) (test 4.0 meq/L 3.5-5.1 gdis=078) CHLORIDE (BEAKER) (test 107 meq/L 98-107 vfin=518) CO2 (BEAKER) (test 22 meq/L 22-29 zetn=881) BLOOD UREA NITROGEN 16 mg/dL 7-21 (BEAKER) (test odgp=379) CREATININE (BEAKER) (test 0.52 mg/dL 0.57-1.25 nfur=501) GLUCOSE RANDOM (BEAKER) 98 mg/dL 70-105 (test dcgq=983) CALCIUM (BEAKER) (test 9.2 mg/dL 8.4-10.2 fxmw=801) EGFR (BEAKER) (test 119 mL/min/1.73 sq m ESTIMATED GFR IS NOT kbxh=7995) ACCURATE CREATININE CLEARANCE IN PREDICTING GLOMERULAR FILTRATION RATE. ESTIMATED GFR IS NOT APPLICABLE FOR DIALYSIS PATIENTS. Once on admission and Daily AM afterwardsOnce on admission and Daily AM afterwardsHEPATIC FUNCTION [id number] 04:32:00 Test Item Value Reference Range Comments TOTAL PROTEIN (BEAKER) (test kywl=220) 6.3 gm/dL 6.0-8.3 ALBUMIN (BEAKER) (test sbev=9778) 3.8 g/dL 3.5-5.0 BILIRUBIN TOTAL (BEAKER) (test pjzq=364) 0.6 mg/dL 0.2-1.2 BILIRUBIN DIRECT (BEAKER) (test xkdc=058) 0.3 mg/dL 0.1-0.5 ALKALINE PHOSPHATASE (BEAKER) (test msed=288) 76 U/L 40-150 AST (SGOT) (BEAKER) (test gluv=945) 17 U/L 5-34 ALT (SGPT) (BEAKER) (test jgbe=705) 16 U/L 6-55 Once on admission and Daily AM afterwardsOnce on admission and Daily AM afterwardsPROTHROMBIN [id number] 04:26:00 Test Item Value Reference Range Comments PROTIME (BEAKER) (test kprl=571) 14.0 seconds 11.7-14.7 INR (BEAKER) (test zifp=377) 1.1 <=5.9 RECOMMENDED COUMADIN/WARFARIN INR THERAPY RANGESSTANDARD DOSE: 2.0 - 3.0 Includes: PROPHYLAXIS forvenous thrombosis, systemic embolization; TREATMENT for venous thrombosis and/or pulmonary embolus.HIGH RISK: Target INR is 2.5-3.5 for patients with mechanical heart valves.[id number] 04:26:00 Test Item Value Reference Range Comments PARTIAL THROMBOPLASTIN TIME (BEAKER) (test 27.7 seconds 22.5-36.0 tidu=500) URINALYSIS W/ REFLEX URINE [id number] 04:21:00 Test Item Value Reference Range Comments COLOR (BEAKER) (test vwwe=391) Yellow CLARITY (BEAKER) (test jjdf=124) Clear SPECIFIC GRAVITY UA (BEAKER) (test zfps=820) 1.015 1.001-1.035 PH UA (BEAKER) (test eydo=429) 7.0 5.0-8.0 PROTEIN UA (BEAKER) (test btle=034) Negative Negative GLUCOSE UA (BEAKER) (test cebl=864) Negative Negative KETONES UA (BEAKER) (test koqk=012) Negative Negative BILIRUBIN UA (BEAKER) (test aqjc=087) Negative Negative BLOOD UA (BEAKER) (test zcjw=843) Negative Negative NITRITE UA (BEAKER) (test cnmh=074) Negative Negative LEUKOCYTE ESTERASE UA (BEAKER) (test hmsp=772) Small Negative UROBILINOGEN UA (BEAKER) (test mpbl=618) 0.2 mg/dL 0.2-1.0 RBC UA (BEAKER) (test qzmw=345) 1 /HPF WBC UA (BEAKER) (test wskv=604) 22 /HPF MUCUS (BEAKER) (test jzxs=3233) Rare SQUAMOUS EPITHELIAL (BEAKER) (test agbn=371) < /HPF AMORPHOUS CRYSTALS (BEAKER) (test kcho=9925) Rare SOURCE(BEAKER) (test xzyg=3846)
--- NOTE | 2018-04-23 08:41 | RAD REPORT ---
EXAM DESCRIPTION: CT - Head Brain Wo Cont - 04/23/2018 5:57 am CLINICAL HISTORY: fall Head injury COMPARISON: Head Brain Wo Cont dated 06/12/2016; Head C Spine Mpr Wo Con dated 04/08/2018 TECHNIQUE: All CT scans are performed using dose optimization technique as appropriate and may inclu de automated exposure control or mA/KV adjustment according to patient size. FINDINGS: Left frontal convexity acute on subacute/chronic subdural hematoma is again noted. The hem atoma appears to maximally measure about 10 mm thickness.Deep brain stimulators are present.No midlin e shift is evident. No hydrocephalus or intraparenchymal bleed. The paranasal sinuses and mastoids are clear. The calvarium is intact. IMPRESSION: Left frontal convexity subdural hematoma again noted, appearing to contain acute, subacu te and chronic components. Overall, it appears similar in size compared to prior study. No appreciabl e midline shift is present related to this finding.
== END 2018-04-23 06:59 | disposition home or self-care (01) ==
LOC: ER 04:41
DX: S06.5X0A Traumatic subdural hemorrhage without loss of consciousness, initial encounter (principal); W19.XXXA Unspecified fall, initial encounter; Y93.9 Activity, unspecified; Y92.9 Unspecified place or not applicable; Z79.82 Long term (current) use of aspirin; Z88.8 Allergy status to other drugs, medicaments and biological substances; G20 Parkinson's disease; I10 Essential (primary) hypertension; E78.5 Hyperlipidemia, unspecified; F32.9 Major depressive disorder, single episode, unspecified; E03.9 Hypothyroidism, unspecified
CPT/HCPCS: 70450; 99284

== ENCOUNTER 2019-03-11 13:58 | Inpatient (IN) | payer OTHER ==
--- OUTSIDE RECORDS SUMMARY | 2019-03-11 14:01 | XMS REPORT | Clinical Summary ---
:1955 Author Organization [facility] Address [address] [place] [address] Care Team Providers Name Role Phone Tad Lorenzo Primary Care Provider Tad Lorenzo Unavailable Allergies Active Allergy Reactions Severity Noted Date Comments Lidocaine Hcl Other (See Comments) 04/19/2015 "heart stopped beating" Medications Medication Sig Dispensed Refills Start Date End Date Status lisinopril Take 10 mg 0 Active (PRINIVIL,ZESTRIL) 10 by mouth MG tablet daily. levothyroxine Take 50 mcg 0 Active (SYNTHROID, by mouth LEVOTHROID) 50 MCG daily. tablet metoprolol Take 50 mg 0 Active (LOPRESSOR) 50 MG by mouth 2 tablet (two) times daily. pancrelipase, Take 24,000 0 Active Fde-Ahwn-Hurc, units of (CREON) 24,000-76,000 lipase by -120,000 unit CpDR mouth 3 capsule (three) times daily with meals. temazepam (RESTORIL) Take 15 mg 0 Active 15 mg capsule by mouth every night as needed for Sleep. entacapone (COMTAN) Take 200 mg 0 Active 200 mg tablet by mouth 3 (three) times daily . amitriptyline Take 10 mg 0 Active (ELAVIL) 10 MG tablet by mouth nightly. carbidopa-levodopa Take 1 0 Active (PARCOPA) 25-100 mg tablet by per disintegrating mouth 3 tablet (three) times daily. carbidopa-levodopa Take 1 0 Active (SINEMET CR) 25-100 tablet by mg per tablet mouth nightly. rivastigmine (EXELON) Place 1 0 Active 4.6 mg/24 hr patch onto patchIndications: the skin Dementia associated daily. with Parkinson's Disease folic acid (FOLVITE) Take 1 mg by 0 Active 1 MG tablet mouth 2 (two) times daily. estradiol (ESTRACE) 1 Take 1 mg by 0 Active MG tablet mouth daily. atorvastatin Take 10 mg 0 04/09/2018 Discontinued (LIPITOR) 10 MG by mouth tablet daily. sertraline (ZOLOFT) Take 100 mg 0 04/09/2018 Discontinued 100 MG tablet by mouth daily. fenofibrate (TRICOR) Take 145 mg 0 04/09/2018 Discontinued 145 MG tablet by mouth daily. amantadine HCl Take 100 mg 0 04/09/2018 Discontinued (SYMMETREL) 100 mg by mouth capsule daily. dexlansoprazole 60 mg Take 60 mg 0 04/09/2018 Discontinued capsule by mouth daily. pramipexole (MIRAPEX) Take 0.25 mg 0 04/09/2018 Discontinued 0.25 MG tablet by mouth 3 (three) times daily. meloxicam (MOBIC) 15 Take 15 mg 0 04/09/2018 Discontinued MG tablet by mouth daily. aspirin 81 MG EC Take 81 mg 0 04/09/2018 Discontinued tablet by mouth daily. 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 Last Filed Vital Signs Vital Sign Reading [...] CDT Plan of Treatment Not on file Procedures Procedure Name Priority Date/Time Associated Comments Diagnosis RHYTHM STRIP - SCAN 04/16/2018 8:51 AM CDT POCT-GLUCOSE METER Routine 04/09/2018 1:01 Results for this PM CDT procedure are in the results section. POCT-GLUCOSE METER Routine 04/09/2018 6:59 Results for this AM CDT procedure are in the results section. CT BRAIN WITHOUT IV STAT 04/09/2018 6:39 Results for this CONTRAST PORTABLE AM CDT procedure are in the results section. URINALYSIS W/ REFLEX Routine 04/09/2018 4:01 Results for this URINE CULTURE AM CDT procedure are in the results section. BASIC METABOLIC PANEL Routine 04/09/2018 4:01 Results for this (7) AM CDT procedure are in the results section. MAGNESIUM Routine 04/09/2018 4:01 Results for this AM CDT procedure are in the results section. HEPATIC FUNCTION Routine 04/09/2018 4:01 Results for this PANEL AM CDT procedure are in the results section. APTT Routine 04/09/2018 4:01 Results for this AM CDT procedure are in the results section. PROTHROMBIN TIME/INR Routine 04/09/2018 4:01 Results for this AM CDT procedure are in the results section. URINE CULTURE Routine 04/09/2018 4:01 Results for this AM CDT procedure are in the results section. after 03/10/2018 Results RHYTHM STRIP - SCAN (04/16/2018 8:51 AM CDT) Narrative Performed At POC-Glucose meter (04/09/2018 1:01 PM CDT)Only the most recent of2 resultswithin the time period is included. POC-Glucose Meter 95Comment: TESTED AT 70 - 110 mg/dL [facility] [address] [place] [address] Specimen Blood Performing Organization Address City/State/Zipcode Phone Number [address] [address] [phone] [place] [address] brain without IV contrast portable (04/09/2018 6:39 AM CDT) Specimen Narrative Performed At FINAL REPORT [facility] EXAM: CT head without contrast. CLINICAL HISTORY: [...] mass effect. No herniation or hydrocephalus. Signed: Lindesy Soto MD Report Verified Date/Time:04/09/2018 06:49:22 Reading Location: [address] Transitional Reading Room Procedure Note Interface, External [...] Report Verified Date/Time: 04/09/2018 06:49:22 Reading Location: [address] Transitional Reading Room Performing Organization Address City/[facility] Phone Number [facility]IS Urinalysis w/Microscopic + Reflex to Culture (04/09/2018 4:01 AM CDT) Color, UA Yellow [facility] Clarity, UA Clear [facility] Specific Cranks, UA 1.015 1.001 - 1.035 [facility] pH, UA 7.0 5.0 - 8.0 [facility] Protein, UA Negative Negative [facility] Glucose, UA Negative Negative [facility] Ketones, UA Negative Negative [facility] Bilirubin, UA Negative Negative [facility] Blood, UA Negative Negative [facility] Nitrite, UA Negative Negative [facility] Leukocytes, UA Small (A) Negative [facility] Urobilinogen, UA 0.2 0.2 - 1.0 mg/dL [facility] RBC, UA 1 /HPF [facility] WBC, UA 22 /HPF [facility] Mucus Rare [facility] Squam Epithel, UA <1 /HPF [facility] Amorphous Crystals Rare [facility] Specimen Source [facility] Specimen Urine Performing Organization Address City/[facility]/Zipcode Phone Number [place] [phone] [place] [address] [place] aPTT (04/09/2018 4:01 AM CDT) PTT 27.7 22.5 - 36.0 seconds [facility] Specimen Blood Performing Organization Address [facility] Phone Number [address] [address] [place] Prothrombin time/INR (04/09/2018 4:01 AM CDT) Protime 14.0 11.7 - 14.7 seconds [facility] INR 1.1 <=5.9 [facility] Specimen Blood Narrative Performed At [facility] RECOMMENDED COUMADIN/WARFARIN INR THERAPY RANGES STANDARD DOSE: 2.0 - 3.0 Includes: PROPHYLAXIS for venous thrombosis, systemic embolization; TREATMENT for venous thrombosis and/or pulmonary embolus. HIGH RISK: Target INR is 2.5-3.5 for patients with mechanical heart valves. Performing Organization Address [facility] Phone Number [address] [address] [place] Urine culture (04/09/2018 4:01 AM CDT) Result See comment [facility] Specimen Urine Narrative Performed At <10,000 col/mL skin shaggy [facility] >100,000 col/mL skin shaggy Performing Organization Address [facility] Phone Number [address] [address] CENTER Magnesium (04/09/2018 4:01 AM CDT) Magnesium 1.9 1.6 - 2.6 mg/dL [facility] Specimen Blood Narrative Performed At Once on admission and Daily AM afterwards [facility] Once on admission and Daily AM afterwards Performing Organization Address City/[facility] Phone Number [address] [address] [phone] [place] Hepatic function panel (04/09/2018 4:01 AM CDT) Protein, Total 6.3 6.0 - 8.3 gm/dL [facility] Albumin 3.8 3.5 - 5.0 g/dL [facility] Total Bilirubin 0.6 0.2 - 1.2 mg/dL [facility] Bilirubin, Direct 0.3 0.1 - 0.5 mg/dL [facility] Alkaline Phosphatase 76 40 - 150 U/L [facility] AST 17 5 - 34 U/L [facility] ALT 16 6 - 55 U/L [facility] Specimen Blood Narrative Performed At Once on admission and Daily AM afterwards [facility] Once on admission and Daily AM afterwards Performing Organization Address City/State/[facility] Phone Number [address] [address] [place] Basic Metabolic Panel (04/09/2018 4:01 AM CDT) Sodium 137 136 - 145 meq/L [facility] Potassium 4.0 3.5 - 5.1 meq/L [facility] Chloride 107 98 - 107 meq/L [facility] CO2 22 22 - 29 meq/L [facility] BUN 16 7 - 21 mg/dL [facility] Creatinine 0.52 (L) 0.57 - 1.25 mg/dL [facility] Glucose 98 70 - 105 mg/dL [facility] Calcium 9.2 8.4 - 10.2 mg/dL [facility] EGFR 119Comment: ESTIMATED GFR IS mL/min/1.73 sq m [facility] NOT ACCURATE CREATININE [facility] CLEARANCE IN PREDICTING GLOMERULAR FILTRATION RATE. ESTIMATED GFR IS NOT APPLICABLE FOR DIALYSIS PATIENTS. Specimen Blood Narrative Performed At Once on admission and Daily AM afterwards [facility] Once on admission and Daily AM afterwards Performing Organization Address City/State/Zipcode Phone Number [facility] [address] [place] [address] [phone] CENTER after 03/10/2018 Insurance Payer Benefit Plan / Group Subscriber ID Type Phone Address MEDICARE MEDICARE A B xxxxxxxxxxx Medicare Rhona Muller Personal/Family Self 1955 [address] (Home) [place] [address] Advance Directives For more information, please contact:[place] [phone] [place], [place] [phone] Code Status Date Activated Date Inactivated Comments Full Code 04/09/2018 3:40 AM 04/09/2018 4:30 PM This code status was determined by: Patient
--- OUTSIDE RECORDS SUMMARY | 2019-03-11 14:02 | XMS REPORT ---
:1955 [facility] Address [address] [place] [address] Care Team Providers Name Role Phone MICHELLE [...] (BEAKER) (test 95 mg/dL 70-110 TESTED AT [address] btmb=[id number]) [facility] [address] POCT-GLUCOSE [id number] 07:00:00 Test Item Value Reference Range Comments POC-GLUCOSE METER (BEAKER) 105 mg/dL 70-110 TESTED AT [address] (test pbny=6541) [place] [id number] CT BRAIN WITHOUT IV CONTRAST - [id number] 06:49:00Reason for exam:-> sdhFINAL REPORT EXAM: CT [...] No herniation or hydrocephalus. Signed: Lindsey Soto MDReport Verified Date/Time: 04/09/2018 06:49:22 Reading Location: [address] Transitional Reading Room Electronically signedby: LINDSEY SOTO MD on 04/09/2018 06:49 [id number] 04:32:00 Test Item Value Reference Range Comments MAGNESIUM (BEAKER) (test rlip=750) 1.9 mg/dL 1.6-2.6 Once on admission and Daily AM afterwardsOnce on admission and Daily AM afterwardsBASIC METABOLIC [id number] 04:32:00 Test Item Value Reference Range Comments SODIUM (BEAKER) (test 137 meq/L 136-145 sxpc=321) POTASSIUM (BEAKER) (test 4.0 meq/L 3.5-5.1 xvuy=024) CHLORIDE (BEAKER) (test 107 meq/L 98-107 qogs=150) CO2 (BEAKER) (test 22 meq/L 22-29 wrfe=418) BLOOD UREA NITROGEN 16 mg/dL 7-21 (BEAKER) (test xgkt=395) CREATININE (BEAKER) (test 0.52 mg/dL 0.57-1.25 rzoj=152) GLUCOSE RANDOM (BEAKER) 98 mg/dL 70-105 (test jrer=870) CALCIUM (BEAKER) (test 9.2 mg/dL 8.4-10.2 vmii=333) EGFR (BEAKER) (test 119 mL/min/1.73 sq m ESTIMATED GFR IS NOT rzue=1455) ACCURATE CREATININE CLEARANCE IN PREDICTING GLOMERULAR FILTRATION RATE. ESTIMATED GFR IS NOT APPLICABLE FOR DIALYSIS PATIENTS. Once on admission and Daily AM afterwardsOnce on admission and Daily AM afterwardsHEPATIC FUNCTION [id number] 04:32:00 Test Item Value Reference Range Comments TOTAL PROTEIN (BEAKER) (test nqef=999) 6.3 gm/dL 6.0-8.3 ALBUMIN (BEAKER) (test romu=9296) 3.8 g/dL 3.5-5.0 BILIRUBIN TOTAL (BEAKER) (test ctgm=246) 0.6 mg/dL 0.2-1.2 BILIRUBIN DIRECT (BEAKER) (test oopx=240) 0.3 mg/dL 0.1-0.5 ALKALINE PHOSPHATASE (BEAKER) (test dvzr=570) 76 U/L 40-150 AST (SGOT) (BEAKER) (test rxbv=105) 17 U/L 5-34 ALT (SGPT) (BEAKER) (test dbmu=063) 16 U/L 6-55 Once on admission and Daily AM afterwardsOnce on admission and Daily AM afterwardsPROTHROMBIN [id number] 04:26:00 Test Item Value Reference Range Comments PROTIME (BEAKER) (test bsbk=973) 14.0 seconds 11.7-14.7 INR (BEAKER) (test ozgp=537) 1.1 <=5.9 RECOMMENDED COUMADIN/WARFARIN INR THERAPY RANGESSTANDARD DOSE: 2.0 - 3.0 Includes: PROPHYLAXIS forvenous thrombosis, systemic embolization; TREATMENT for venous thrombosis and/or pulmonary embolus.HIGH RISK: Target INR is 2.5-3.5 for patients with mechanical heart valves.[id number] 04:26:00 Test Item Value Reference Range Comments PARTIAL THROMBOPLASTIN TIME (BEAKER) (test 27.7 seconds 22.5-36.0 ygvc=538) URINALYSIS W/ REFLEX URINE [id number] 04:21:00 Test Item Value Reference Range Comments COLOR (BEAKER) (test qfuo=838) Yellow CLARITY (BEAKER) (test obcd=392) Clear SPECIFIC GRAVITY UA (BEAKER) (test iqzb=875) 1.015 1.001-1.035 PH UA (BEAKER) (test kunw=246) 7.0 5.0-8.0 PROTEIN UA (BEAKER) (test vqte=487) Negative Negative GLUCOSE UA (BEAKER) (test fyxp=443) Negative Negative KETONES UA (BEAKER) (test tnkj=712) Negative Negative BILIRUBIN UA (BEAKER) (test dvox=843) Negative Negative BLOOD UA (BEAKER) (test izzs=810) Negative Negative NITRITE UA (BEAKER) (test ergn=638) Negative Negative LEUKOCYTE ESTERASE UA (BEAKER) (test nfnz=937) Small Negative UROBILINOGEN UA (BEAKER) (test jusb=055) 0.2 mg/dL 0.2-1.0 RBC UA (BEAKER) (test szex=708) 1 /HPF WBC UA (BEAKER) (test kmej=826) 22 /HPF MUCUS (BEAKER) (test uuyl=3586) Rare SQUAMOUS EPITHELIAL (BEAKER) (test fvpi=888) < /HPF AMORPHOUS CRYSTALS (BEAKER) (test ocyt=7873) Rare SOURCE(BEAKER) (test lsok=5441)
--- NOTE | 2019-03-11 14:28 | RAD REPORT ---
EXAM DESCRIPTION: [place] Single View03/11/2019 2:21 pm CLINICAL HISTORY: Shortness of breath COMPARISON: none FINDINGS: The lungs appear clear of acute infiltrate. The heart is normal size. Battery pack overli es the left chest IMPRESSION: No acute abnormalities displayed
[2019-03-11] MEDS ORDERED: METHYLPREDNISOLONE 125 MG INJ ONE (14:29)
[2019-03-11] MEDS ORDERED: ALBUTEROL 2.5 MG/3 ML NEB SOL ONE (14:30)
[2019-03-11] MEDS ORDERED: IPRATROPIUM BROM 0.5MG/2.5ML ONE (14:30)
[2019-03-11 14:36] LABS: Absolute Lymphocytes (CBC) 5.6 K/uL (0.7-4.9); Basophils % 0.5 % (0-1.3); Hematocrit 38.4 % (36.0-45.0); Lymphocytes % 47.1 % (15.3-44.8); MPV 8.3 fL (7.6-11.3); RBC Red Blood Cell Count 4.17 M/uL (3.86-4.86)
[2019-03-11 14:38] LABS: Protime INR 1.01
[2019-03-11 14:40] LABS: Arterial Blood Carboxyhemoglob 0.6 % (0-1.5); Blood Gas Oxyhemoglobin 94.9 % (94-97); Blood O2 Saturation 96.1 % (92-98.5)
[2019-03-11] MEDS ORDERED: NA CHLORIDE 0.9% 2,000 ML ONE (14:46)
[2019-03-11 14:50] LABS: ALT/SGPT 7 U/L (12-78); AST/SGOT 17 U/L (15-37); Albumin 3.7 g/dL (3.4-5.0); Alkaline Phosphatase 74 U/L (45-117); BUN Blood Urea Nitrogen 19 mg/dL (7-18); Bicarbonate 24 mmol/L (21-32); Bilirubin Direct 0.2 mg/dL (0-0.2); Bilirubin Total 0.6 mg/dL (0.2-1.0); CKMB Creatine Kinase MB 1.1 ng/mL (0.3-3.6); Creatine Phosphokinase 46 U/L (26-192); Glucose Level 236 mg/dL (74-106); Lipase 251 U/L (73-393); Potassium 3.8 mmol/L (3.5-5.1); Sodium Level 142 mmol/L (136-145); Troponin (Emerg Dept Use Only) < 0.02 ng/mL (0.0-0.045)
[2019-03-11] MEDS ORDERED: PIPER/TAZO/NS 4.5gm 4.5 GM/100 ML BAG IV ONE (15:00)
[2019-03-11 15:10] LABS: Urine Specific Gravity 1.025 (1.005-1.030)
[2019-03-11 15:12] LABS: Urine Blood NEGATIVE (NEG); Urine Glucose NEGATIVE (NEG); Urine Protein 2+ (NEG); Urine pH 5.5 (5.0-7.0)
[2019-03-11 15:36] LABS: Urine Bacteria <20 /HPF (<20); Urine RBC <5 /HPF (NONE SEEN)
[2019-03-11 15:37] LABS: Urine Culture Reflex Order NOT NEEDED; Urine Mucus 2+ /HPF (NONE SEEN)
--- NOTE | 2019-03-11 15:44 | EDPHYS ---
Physician Documentation [facility] – [place], [place] Name: Rhona Muller Age: 64 yrs Sex: Female : 1955 Arrival Date: 03/11/2019 Time: 13:59 Bed 4 Private MD: Charles Raphael S ED Physician Bhaskar Heller HPI: 03/11 15:34 This 64 yrs old Female presents to ER via Wheelchair with complaints of jr8 Congestion, Breathing Difficulty. 15:34 The patient has shortness of breath at rest. Onset: The symptoms/episode began/occurred jr8 acutely, today. Duration: The symptoms are continuous. The patient's shortness of breath has no apparent modifying factors. Associated signs and symptoms: The patient has no apparent associated signs or symptoms. Severity of symptoms: At their worst the symptoms were moderate in the emergency department the symptoms are unchanged. It is unknown whether or not the patient has had similar symptoms in the past. The patient has not recently seen a physician. Patients stated that she started to have coughing and breathing difficulty this AM that has worsened throughout the day . Historical: - Allergies: 14:09 Xylocaine; hb - Home Meds: 14:09 amitriptyline 10 mg Oral tab 1 tab daily [Active]; aspirin 81 mg Oral TbEC 1 tab once hb daily [Active]; Creon 24,000-76,000 -120,000 unit Oral cpDR 1 caps 3 times per day [Active]; docusate sodium 100 mg Oral cap 1 cap once daily [Active]; entacapone 200 mg Oral tab 1 tab 2 times per day [Active]; folic acid 1 mg Oral tab 1 tab twice a day [Active]; levothyroxine 50 mcg tab 1 tab once daily [Active]; lisinopril 10 mg Oral tab 1 tab once daily [Active]; meloxicam 15 mg Oral tab 1 tab once daily [Active]; metoprolol tartrate 25 mg Oral tab 1 tab 2 times per day [Active]; polyethylene glycol 3350 17 gram/dose Oral powd once daily [Active]; Restoril 7.5 mg Oral cap 2 caps once daily [Active]; rivastigimine patch 24 hour 1 patch daily [Active]; Sinemet 25-100 mg Oral tab 1 tab twice a day [Active]; Sinemet 25-100 mg Oral tab 2 tabs daily [Active]; - PMHx: 14:09 Anemia; cognitive communition deficit; cognitive impairment; Depression; DYSPHAGIA; hb GERD; Hyperlipidemia; Hypertension; Hypothyroidism; LACK OF COORDINATION; metabolic encephalopathy; MUSCLE WEAKNESS; Parkinsons; polyosteoarthritis; - PSHx: 14:09 Nerve stimulator for Parkinson's; hb - Immunization history:: Adult Immunizations up to date. - Social history:: Smoking status: Patient/guardian denies using tobacco. - Ebola Screening: : No symptoms or risks identified at this time. ROS: 15:34 Eyes: Negative for injury, pain, redness, and discharge, ENT: Negative for injury, jr8 pain, and discharge, Neck: Negative for injury, pain, and swelling, Cardiovascular: Negative for chest pain, palpitations, and edema, Abdomen/GI: Negative for abdominal pain, nausea, vomiting, diarrhea, and constipation, Back: Negative for injury and pain, MS/Extremity: Negative for injury and deformity, Skin: Negative for injury, rash, and discoloration, Neuro: Negative for headache, weakness, numbness, tingling, and seizure. 15:34 Respiratory: Positive for cough, shortness of breath, wheezing. Exam: 15:34 Eyes: Pupils equal round and reactive to light, extra-ocular motions intact. Lids and jr8 lashes normal. Conjunctiva and sclera are non-icteric and not injected. Cornea within normal limits. Periorbital areas with no swelling, redness, or edema. ENT: Nares patent. No nasal discharge, no septal abnormalities noted. Tympanic membranes are normal and external auditory canals are clear. Oropharynx with no redness, swelling, or masses, exudates, or evidence of obstruction, uvula midline. Mucous membranes moist. Neck: Trachea midline, no thyromegaly or masses palpated, and no cervical lymphadenopathy. Supple, full range of motion without nuchal rigidity, or vertebral point tenderness. No Meningismus. Cardiovascular: Regular rate and rhythm with a normal S1 and S2. No gallops, murmurs, or rubs. Normal PMI, no JVD. No pulse deficits. Abdomen/GI: Soft, non-tender, with normal bowel sounds. No distension or tympany. No guarding or rebound. No evidence of tenderness throughout. Back: No spinal tenderness. No costovertebral tenderness. Full range of motion. Skin: Warm, dry with normal turgor. Normal color with no rashes, no lesions, and no evidence of cellulitis. MS/ Extremity: Pulses equal, no cyanosis. Neurovascular intact. Full, normal range of motion. 15:34 Respiratory: moderate respiratory distress is noted, Respirations: tachypnea, Breath sounds: rales, that are moderate, are heard diffusely, rhonchi, that are moderate, are heard diffusely, wheezing: expiratory that is mild, is heard diffusely. 15:34 Neuro: alert but disoriented to person, place, time, event. Non verbal and with significant cognitive impairment secondary to Parkinson's . Vital Signs: 14:07 BP 145 / 105; Pulse 86; Resp 22; Temp 97.9; Pulse Ox 55% on R/A; Weight 50.8 kg; Height ss 5 ft. 6 in. (167.64 cm); Pain 0/10; 14:07 Pulse Ox 81% on Non-rebreather mask; ss 14:26 Pulse 70; Resp 23; Pulse Ox 100% on 80% BiPAP; sv 15:10 BP 120 / 76; Pulse 74; Resp 22; Pulse Ox 100% on 80% BiPAP; sv 16:05 BP 116 / 75; Pulse 70; Resp 23; Pulse Ox 98% on 80% BiPAP; sv 14:07 Body Mass Index 18.08 (50.80 kg, 167.64 cm) ss MDM: 14:05 Patient medically screened. [facility] 15:34 Data reviewed: vital signs, nurses notes, lab test result(s), EKG, radiologic studies, jr8 plain films. Data interpreted: Pulse oximetry: on room air is 50 %. Interpretation: hypoxia. Counseling: I had a detailed discussion with the patient and/or guardian regarding: the historical points, exam findings, and any diagnostic results supporting the discharge/admit diagnosis, lab results, radiology results, the need for further work-up and treatment in the hospital. Physician consultation: Sarah Baca MD was called at 15:41, was contacted at 15:41, regarding admission, to the ICU, consult, patient's condition, and will see patient in ED. 03/11 14:04 Order name: ABG; Complete Time: 14:42 jr8 03/11 14:04 Order name: Basic Metabolic Panel; Complete Time: 14:50 jr8 07/31 14:04 Order name: Blood Culture Adult (2) 03/11 14:04 Order name: CBC with Diff; Complete Time: 14:40 03/11 14:04 Order name: Ckmb; Complete Time: 14:50 03/11 14:04 Order name: CPK; Complete Time: 14:50 03/11 14:04 Order name: Lactate; Complete Time: 14:54 03/11 14:04 Order name: LFT's; Complete Time: 14:50 03/11 14:04 Order name: Lipase; Complete Time: 14:50 03/11 14:04 Order name: Procalcitonin; Complete Time: 15:23 03/11 14:04 Order name: Protime (+inr); Complete Time: 14:40 03/11 14:04 Order name: Ptt, Activated; Complete Time: 14:40 03/11 14:04 Order name: Troponin (emerg Dept Use Only); Complete Time: 14:50 03/11 14:04 Order name: Urine Microscopic Only; Complete Time: 15:43 03/11 14:04 Order name: Cath; Complete Time: 14:55 03/11 14:04 Order name: Chest Single View XRAY; Complete Time: 14:31 03/11 14:04 Order name: Accucheck; Complete Time: 14:13 03/11 14:04 Order name: Cardiac monitoring; Complete Time: 14:13 03/11 14:04 Order name: EKG - Nurse/Tech; Complete Time: 14:13 03/11 14:04 Order name: IV Saline Lock - Large Bore; Complete Time: 14:13 03/11 14:04 Order name: Labs collected and sent; Complete Time: 14:22 [facility] 03/11 14:07 Order name: BIPAP [facility] 03/11 14:52 Order name: Urine Dipstick--Ancillary (enter results); Complete Time: 15:19 bd 03/11 15:55 Order name: CONS Physician Consult [facility] 03/11 15:55 Order name: EKG Electrocardiogram; Complete Time: 15:57 [facility] 03/11 18:01 Order name: Lactate Sepsis 2 HR Follow-up [facility] 03/11 14:04 Order name: O2 Per Protocol; Complete Time: 14:13 [facility] 03/11 14:04 Order name: O2 Sat Monitoring; Complete Time: 14: [facility] 03/11 14:04 Order name: Urine Dipstick-Ancillary (obtain specimen); Complete Time: 14:55 jr8 Administered Medications: 14:15 Drug: Albuterol - atroVENT (3:1) (2.5 mg - 0.5 mg) 3 ml Route: Nebulizer; sv 14:55 Follow up: Response: No adverse reaction sv 14:15 Drug: SOLU-Medrol 125 mg Route: IVP; Site: right forearm; sv 14:55 Follow up: Response: No adverse reaction sv 14:55 Drug: NS 0.9% (30 ml/kg) 30 ml/kg Route: IV; Rate: bolus; Site: right forearm; sv 20:37 Follow up: IV Status: Completed infusion; IV Intake: 1500ml ak1 15:09 Drug: Zosyn 4.5 grams Route: IVPB; Infused Over: 60 mins; Site: right forearm; sv 15:35 Follow up: Response: No adverse reaction; IV Status: Completed infusion; IV Intake: sv 100ml 20:37 Follow up: IV Status: Completed infusion ak1 Point of Care Testing: Blood Glucose: 14:07 Blood Glucose: 242 mg/dL; ss Ranges: Critical Glucose Levels:Adult <50 mg/dl or >400 mg/dl <40 mg/dl or >180 mg/dl Disposition: 03/11/19 15:43 Hospitalization ordered by Sarah Baca for Inpatient Admission. Preliminary diagnosis are Acute respiratory failure with hypercapnia, Aspiration Pneumonia , Acidosis. - Bed requested for Intensive Care Unit. - Status is Inpatient Admission. fc - Condition is Fair. - Problem is new. - Symptoms have improved. UTI on Admission? No Addendum: 03/14/2019 07:08 Co-signature as Attending Physician, Bhaskar Heller MD. r n Signatures: Dispatcher [employer] [facility] Rosa Ramirez RN JOSE ALBERTO Miracle Boone RN RN Anita Sandoval RN RN Bhaskar Heller MD MD rn Smirch, Shelby, RN RN Sergey Moreno PA PA jr8 Celestina Ordonez RN RN Tiffany Lacy RN ak1 Corrections: (The following items were deleted from the chart) 03/11 16:14 15:43 Hospitalization Ordered by Sarah Baca MD for Inpatient Admission. Preliminary ss diagnosis is Acute respiratory failure with hypercapnia; Aspiration Pneumonia ; Acidosis. Bed requested for Intensive Care Unit. Status is Inpatient Admission. Condition is Fair. Problem is new. Symptoms have improved. UTI on Admission? No. jr8 19:52 16:14 03/11/2019 15:43 Hospitalization Ordered by Sarah Baca MD for Inpatient mw Admission. Preliminary diagnosis is Acute respiratory failure with hypercapnia; Aspiration Pneumonia ; Acidosis. Bed requested for [facility] ER HOLD. Status is Inpatient Admission. Condition is Fair. Problem is new. Symptoms have improved. UTI on Admission? No. ss 21:15 19:52 03/11/2019 15:43 Hospitalization Ordered by Sarah Baca MD for Inpatient fc Admission. Preliminary diagnosis is Acute respiratory failure with hypercapnia; Aspiration Pneumonia ; Acidosis. Bed requested for Intensive Care Unit. Status is Inpatient Admission. Condition is Fair. Problem is new. Symptoms have improved. UTI on Admission? No. mw
--- NOTE | 2019-03-11 15:44 | ER ---
Nurse's Notes [facility] Name: Rhona Muller Age: 64 yrs Sex: Female : 1955 Arrival Date: 03/11/2019 Time: 13:59 Bed 4 Private MD: Charles Raphael S Diagnosis: Acute respiratory failure with hypercapnia;Aspiration Pneumonia ;Acidosis Presentation: 03/11 14:06 Presenting complaint: SOB and productive cough x 2 days. SpO2 60s on RA in triage. hb Transition of care: patient was not received from another setting of care. Resp Distress? Moderate respiratory distress is noted. The patient has been moved to a treatment area. Onset of symptoms was March 10, 2019. Risk Assessment: Do you want to hurt yourself or someone else? Patient reports no desire to harm self or others. Care prior to arrival: None. 14:06 Method Of Arrival: Wheelchair hb 14:06 Acuity: ROYER 2 hb 14:06 Acuity: ROYER 1 sv 14:15 Initial Sepsis Screen: Does the patient meet any 2 criteria? RR > 20 per min. Altered sv Mental Status. Yes Does the patient have a suspected source of infection? Yes: Productive cough/pneumonia. Triage Assessment: 14:06 General: Appears distressed, uncomfortable, ill, unkempt, emaciated, malnourished, sv Behavior is uncooperative, unresponsive. Pain: Unable to use pain scale. Does not appear to understand pain scale. Neuro: Level of Consciousness is obtunded, Oriented to none. Cardiovascular: Heart tones S1 S2 present Capillary refill is > 3 seconds in bilateral fingers Pulses are 2+ in right radial artery and left radial artery Rhythm is sinus rhythm. Respiratory: Airway is patent Respiratory effort is gasping, shallow, Respiratory pattern is tachypnea Breath sounds are coarse bilaterally. Breath sounds with wheezes bilaterally. the patient has severe shortness of breath Parent/caregiver reports the patient having shortness of breath cough that is productive, labored breathing. Derm: Skin is pale, Skin temperature is cool. Musculoskeletal: No signs and/or symptoms reported regarding the musculoskeletal system. Historical: - Allergies: 14:09 Xylocaine; hb - Home Meds: 14:09 amitriptyline 10 mg Oral tab 1 tab daily [Active]; aspirin 81 mg Oral TbEC 1 tab once hb daily [Active]; Creon 24,000-76,000 -120,000 unit Oral cpDR 1 caps 3 times per day [Active]; docusate sodium 100 mg Oral cap 1 cap once daily [Active]; entacapone 200 mg Oral tab 1 tab 2 times per day [Active]; folic acid 1 mg Oral tab 1 tab twice a day [Active]; levothyroxine 50 mcg tab 1 tab once daily [Active]; lisinopril 10 mg Oral tab 1 tab once daily [Active]; meloxicam 15 mg Oral tab 1 tab once daily [Active]; metoprolol tartrate 25 mg Oral tab 1 tab 2 times per day [Active]; polyethylene glycol 3350 17 gram/dose Oral powd once daily [Active]; Restoril 7.5 mg Oral cap 2 caps once daily [Active]; rivastigimine patch 24 hour 1 patch daily [Active]; Sinemet 25-100 mg Oral tab 1 tab twice a day [Active]; Sinemet 25-100 mg Oral tab 2 tabs daily [Active]; - PMHx: 14:09 Anemia; cognitive communition deficit; cognitive impairment; Depression; DYSPHAGIA; hb GERD; Hyperlipidemia; Hypertension; Hypothyroidism; LACK OF COORDINATION; metabolic encephalopathy; MUSCLE WEAKNESS; Parkinsons; polyosteoarthritis; - PSHx: 14:09 Nerve stimulator for Parkinson's; hb - Immunization history:: Adult Immunizations up to date. - Social history:: Smoking status: Patient/guardian denies using tobacco. - Ebola Screening: : No symptoms or risks identified at this time. Screenin:15 Abuse screen: Denies threats or abuse. Denies injuries from another. Nutritional sv screening: No deficits noted. Tuberculosis screening: No symptoms or risk factors identified. Fall Risk No fall in past 12 months (0 pts). Secondary diagnosis (15 points) impaired mobility, IV access (20 points). Ambulatory Aid- None/Bed Rest/Nurse Assist (0 pts). Gait- Weak (10 pts.). Mental Status- Overestimates/Forgets Limitations (15 pts.). Total Shepherd Fall Scale indicates High Risk Score (45 or more points). Fall prevention measures have been instituted. Side Rails Up X 2 Placed Close to Nursing Station Frequent Obs/Assessments Occuring Family Present and informed to notify staff if the need to leave the bedside As available patient and family educated on Fall Prevention Program and Strategies. Assessment: 14:15 Reassessment: BIPAP placed. ss 14:30 General: Appears in no apparent distress. unkempt, emaciated, malnourished, Behavior is sv cooperative. Pain: Denies pain. Neuro: Level of Consciousness is awake, confused, lethargic, Oriented to none. Cardiovascular: Rhythm is sinus rhythm. Respiratory: Respiratory effort is even, unlabored, Respiratory pattern is symmetrical, tachypnea the patient reports symptoms have resolved. Derm: Skin is pale. 14:56 Reassessment: JEMMA Fajardo notified of critical lab value. lactate 6.5. ss 15:41 Reassessment: Patient appears in no apparent distress at this time. No changes from previously documented assessment. Patient and/or family updated on plan of care and expected duration. Pain level reassessed. Family at the bedside. Vital Signs: 14:07 BP 145 / 105; Pulse 86; Resp 22; Temp 97.9; Pulse Ox 55% on R/A; Weight 50.8 kg; Height ss 5 ft. 6 in. (167.64 cm); Pain 0/10; 14:07 Pulse Ox 81% on Non-rebreather mask; ss 14:26 Pulse 70; Resp 23; Pulse Ox 100% on 80% BiPAP; sv 15:10 BP 120 / 76; Pulse 74; Resp 22; Pulse Ox 100% on 80% BiPAP; sv 16:05 BP 116 / 75; Pulse 70; Resp 23; Pulse Ox 98% on 80% BiPAP; sv 14:07 Body Mass Index 18.08 (50.80 kg, 167.64 cm) ED Course: 13:59 Patient arrived in ED. ag5 13:59 Charles Raphael MD is Private Physician. ag5 14:04 [facility] jr8 14:04 Bhaskar Heller MD is Attending Physician. jr8 14:07 Triage completed. hb 14:08 Arm band placed on. hb 14:08 monitoring and evaluation advisor on. Pulse ox on. NIBP on. sv 14:12 Rosa Ramirez, JOSE ALBERTO is Primary Nurse. sv 14:12 Initial lab(s) drawn, by ny, sent to lab. First set of blood cultures drawn by ED sv staff. Inserted saline lock: 20 gauge in right forearm, using aseptic technique. Blood collected. Flushed right forearm with 5 ml normal saline. 14:15 Patient has correct armband on for positive identification. Placed in gown. Bed in low sv position. Side rails up X2. Adult w/ patient. 14:23 Chest Single View XRAY In Process Unspecified. EDMS 14:40 Jhaveri cath inserted, using sterile technique, 16 Fr., by me, balloon inflated, to sv gravity drainage, urine specimen collected. returned casandra urine. 14:57 Door closed. Warm blanket given. Pillow given. Head of bed elevated. sv 14:59 BIPAP Sent. sv 15:42 Sarah Baca MD is Hospitalizing Provider. jr8 15:54 Awaiting bed assignment. sv 17:15 Repeat lab(s) drawn. by me, sent to lab. jb1 19:47 Primary Nurse role handed off by Rosa Ramirez RN sv 20:36 No provider procedures requiring assistance completed. Patient admitted, IV remains in ak1 place. Administered Medications: 14:15 Drug: Albuterol - atroVENT (3:1) (2.5 mg - 0.5 mg) 3 ml Route: Nebulizer; sv 14:55 Follow up: Response: No adverse reaction sv 14:15 Drug: SOLU-Medrol 125 mg Route: IVP; Site: right forearm; sv 14:55 Follow up: Response: No adverse reaction sv 14:55 Drug: NS 0.9% (30 ml/kg) 30 ml/kg Route: IV; Rate: bolus; Site: right forearm; sv 20:37 Follow up: IV Status: Completed infusion; IV Intake: 1500ml ak1 15:09 Drug: Zosyn 4.5 grams Route: IVPB; Infused Over: 60 mins; Site: right forearm; sv 15:35 Follow up: Response: No adverse reaction; IV Status: Completed infusion; IV Intake: sv 100ml 20:37 Follow up: IV Status: Completed infusion ak1 Point of Care Testing: Blood Glucose: 14:07 Blood Glucose: 242 mg/dL; ss Ranges: Intake: 15:35 IV: 100ml; Total: 100ml. sv 20:37 IV: 1500ml; Total: 1600ml. ak1 Outcome: 15:43 Decision to Hospitalize by Provider. jr8 20:36 Admitted to ICU accompanied by nurse, accompanied by tech, family with patient, via ak1 stretcher, room ICU8, with oxygen, on monitor, with chart, Report called to Ruby ABRAMS 20:36 Condition: improved 20:36 Instructed on the need for admit. 21:15 Patient left the ED. fc Signatures: Dispatcher [employer] EDMS SethiGiacomo Stephanie, RN RN Anita Sandoval RN RN Danya Sotomayor RN RN Sergey Moreno PA PA jr8 Krenek, Amber, RN RN ak1 Celestina Ordonez RN RN hb Gaskin, Ajare ag5 Corrections: (The following items were deleted from the chart) 14:13 14:07 BP 145 / 105; Pulse 86bpm; Resp 32bpm; Pulse Ox 65% RA; Temp 97.9F; 50.8 kg; ss Height 5 ft. 6 in.; BMI: 18.0; Pain 0/10; hb
--- NOTE | 2019-03-11 17:46 | P.HP ---
Certification for Inpatient Patient admitted to: Inpatient With expected LOS: >2 Midnights Patient will require the following post-hospital care: None Practitioner: I am a practitioner with admitting privileges, knowledge of patient current condition, hospital course, and medical plan of care. Services: Services provided to patient in accordance with Admission requirements found in Title 42 Section 412.3 of the Code of Federal Regulations Patient History Date of Service: 03/11/19 Primary Care Provider: Reason for admission: SOB History of Present Illness: This is a 64-year-old female with significant past medical history of Parkinson' s, hyperlipidemia, hypertension and respiratory insufficiency secondary to Parkinson's disease, dysphagia secondary to Parkinson's disease who presents to the ED complaining of having difficulty breathing. Patient's at bedside states that she started having coughing and breathing difficulty this a.m. and which has progressively worsened throughout the day. Patient has generalized weakness as well as dysphasia secondary to Parkinson's disease. Patient has been having some mild cough on an off along with congestion however this morning is when she started getting worse and her brought her to the hospital to get a further checked out. Patient denies having any fever chills nausea vomiting or any other associated symptoms at this time. In the ER patient was seen and evaluated lab work and imaging was done was found to have hypercapnic respiratory failure and thus patient was admitted to the hospital for further workup. Allergies lidocaine [From Xylocaine] Allergy (Verified 03/11/19 16:03) Hives Home Medications: Amitriptyline HCl 1 tab PO DAILY 03/11/19 Ascorbic Acid [Vitamin C] 500 mg PO DAILY 03/11/19 Aspirin [Aspir-Low] 1 tab PO DAILY 03/11/19 Atorvastatin Calcium 10 mg PO DAILY 03/11/19 Carbidopa/Levodopa [Carbidopa-Levodopa 25-100 Tab] 1 tab PO QID 03/11/19 Creon Solution 6,000 units PO TIDWM 03/11/19 Entacapone 1 tab PO QID 03/11/19 Estradiol [Estrace] 1 tab PO DAILY 03/11/19 Ferrous Sulfate [Ferrous Sulfate*] 1 tab PO DAILY 03/11/19 Folic Acid 1 tab PO BID 03/11/19 Levothyroxine [Synthroid] 50 mcg PO DAILY 03/11/19 Lisinopril 1 tab PO DAILY 03/11/19 Melatonin 10 mg PO BEDTIME 03/11/19 Meloxicam 1 tab PO DAILY 03/11/19 Metoprolol Succinate [Toprol Xl] 25 mg PO BID 03/11/19 Nuedexta 10 mg PO Q12H 03/11/19 Rivastigmine 1 patch TOP DAILY 03/11/19 Sennosides 8.6 mg PO DAILY 03/11/19 Temazepam 1 cap PO DAILYPRN PRN 03/11/19 Zinc 50 mg PO DAILY 03/11/19 - Past Medical/Surgical History Diabetic: No -: Anemia -: Cognitive communication deficit -: cognitive impairment -: depression -: dysphagia -: gerd -: hyperlipidemia -: htn -: hypothyroidism -: encephalopathy -: muscle weakness -: parkinson's -: nerve stimulator for parkinson's - Social History Smoking Status: Never smoker Alcohol use: No CD- Drugs: No Caffeine use: No Place of Residence: Home Review of Systems 10-point ROS is otherwise unremarkable Physical Examination - Physical Exam General: Alert, Oriented x1, Demented, Mild distress, Delirious Respiratory: Normal air movement, Expiratory wheezes, Inspiratory wheezes Cardiovascular: Regular rate/rhythm, Normal S1 S2 Gastrointestinal: Normal bowel sounds, No tenderness Musculoskeletal: No tenderness Integumentary: No rashes Neurological: Abnormal gait, Abnormal speech, Abnormal strength Lymphatics: No axilla or inguinal lymphadenopathy - Studies Laboratory Data (last 24 hrs) 03/11/19 14:12: PT 11.9, INR 1.01, APTT 27.6 03/11/19 14:12: WBC 11.9 H, Hgb 12.6, Hct 38.4, Plt Count 338 03/11/19 14:12: Sodium 142, Potassium 3.8, BUN 19 H, Creatinine 0.75, Glucose 236 H, Total Bilirubin 0.6, AST 17, ALT 7 L, Alkaline Phosphatase 74, Lipase 251 Assessment and Plan - Problems (Diagnosis) (1) Acute respiratory failure Current Visit: Yes Status: Acute Plan: Acute respiratory failure most likely secondary to hypercapnia secondary to Parkinson's disease -currently started on BiPAP will wean as tolerated -duo nebs, steroids -pulmonology is consulted awaiting recommendations at this time -will monitor patient closely here in the hospital Qualifiers: Respiratory failure complication: hypoxia and hypercapnia Qualified Code(s) : J96.01 - Acute respiratory failure with hypoxia; J96.02 - Acute respiratory failure with hypercapnia (2) Parkinsons disease Current Visit: Yes Status: Acute Plan: Parkinson's disease with chronic dementia, dysphagia, respiratory insufficiency and declining mentation now -will monitor closely -will consult PT/OT and Speech. (3) Hypertension Current Visit: Yes Status: Chronic Plan: Restart home medication Qualifiers: Hypertension type: essential hypertension Qualified Code(s): I10 - Essential (primary) hypertension (4) Hypothyroidism Current Visit: Yes Status: Chronic Plan: Restart home medication Qualifiers: Hypothyroidism type: acquired Qualified Code(s): E03.9 - Hypothyroidism, unspecified (5) Chronic GERD Current Visit: Yes Status: Acute Plan: Restart home medication Discharge Plan: Home Plan to discharge in: Greater than 2 days - Advance Directives Does patient have a Living Will: No Does patient have a Durable POA for Healthcare: No - Code Status/Comfort Care Code Status Assessed: Yes Critical Care: Yes
[2019-03-11] MEDS ORDERED: IPRATROPIUM BROM 0.5MG/2.5ML NEB PRN (17:48)
[2019-03-11] MEDS ORDERED: LEVALBUTEROL 0.63 MG/3 ML NEB NEB PRN (17:48)
[2019-03-11] MEDS: ENTACAPONE 200 MG TAB PO SCH (21:00)
[2019-03-11] MEDS: FOLIC ACID 1 MG TABLET PO SCH (21:00)
[2019-03-11] MEDS: CARBIDOPA/LEVODOPA 25/100 TAB PO SCH (21:00)
[2019-03-11] MEDS ORDERED: METOPROLOL XL 25 MG TAB PO SCH (21:00)
--- NOTE | 2019-03-11 22:10 | EKG ---
Test Date: 2019-03-11 Test Time: 14:05:00 [employer] Operator: TAE MEASUREMENT RESULTS: Intervals: Rate: 84 AR: 148 QRSD: 90 QT: 364 QTc: 430 [place]: P: 73 AR: 148 QRS: 65 T: 262 INTERPRETIVE STATEMENTS: Normal sinus rhythm Septal infarct, age undetermined Marked ST abnormality, possible inferior subendocardial injury Abnormal ECG Compared to ECG 12/13/2016 10:48:47 Myocardial infarct finding now present ST (T wave) deviation now present Electronically Signed On 03-11-19 22:10:12 CDT by Clayton Das
[2019-03-12] MEDS: LEVOTHYROXINE SOD 0.05 MG TABLET PO SCH (01:03)
[2019-03-12 05:52] LABS: Absolute Lymphocytes (CBC) 0.9 K/uL (0.7-4.9); Basophils % 0.1 % (0-1.3); Lymphocytes % 5.8 % (15.3-44.8); RBC Red Blood Cell Count 4.06 M/uL (3.86-4.86)
[2019-03-12 06:12] LABS: Albumin 3.5 g/dL (3.4-5.0); Bilirubin Total 0.6 mg/dL (0.2-1.0); Potassium 3.7 mmol/L (3.5-5.1); Protein, Total 6.7 g/dL (6.4-8.2)
[2019-03-12 06:50] LABS: Blood Morphology Comment NOT SEEN (NOT SEEN); Platelet Estimate ADEQ; Urine White Blood Cell Casts OK
--- NOTE | 2019-03-12 08:39 | P.CNS ---
Date of Consult: 03/12/19 Primary Care Provider: Mckenzie Chief Complaint: Respiratory failure History of Present Illness: Patient is 64 years of age with a history of end-stage Parkinson's disease and dementia according to the she has some difficulty swallowing her developed respiratory distress was admitted to the ICU currently on a BiPAP she does eat regular for with no choking spells usually has some problems swallowing early in the morning that resolves she can't eat regular before without any problems patient has a deep brain stimulator that has helped her quite a bit baseline functioning is very poor has underlying dementia very poor mobility Allergies lidocaine [From Xylocaine] Allergy (Verified 03/11/19 16:03) Hives Home Medications: Amitriptyline HCl 1 tab PO DAILY 03/11/19 Ascorbic Acid [Vitamin C] 500 mg PO DAILY 03/11/19 Aspirin [Aspir-Low] 1 tab PO DAILY 03/11/19 Atorvastatin Calcium 10 mg PO DAILY 03/11/19 Carbidopa/Levodopa [Carbidopa-Levodopa 25-100 Tab] 1 tab PO QID 03/11/19 Creon Solution 6,000 units PO TIDWM 03/11/19 Entacapone 1 tab PO QID 03/11/19 Estradiol [Estrace] 1 tab PO DAILY 03/11/19 Ferrous Sulfate [Ferrous Sulfate*] 1 tab PO DAILY 03/11/19 Folic Acid 1 tab PO BID 03/11/19 Levothyroxine [Synthroid] 50 mcg PO DAILY 03/11/19 Lisinopril 1 tab PO DAILY 03/11/19 Melatonin 10 mg PO BEDTIME 03/11/19 Meloxicam 1 tab PO DAILY 03/11/19 Metoprolol Succinate [Toprol Xl] 25 mg PO BID 03/11/19 Nuedexta 10 mg PO Q12H 03/11/19 Rivastigmine 13.3 mg TOP DAILY 03/11/19 Sennosides 8.6 mg PO DAILY 03/11/19 Temazepam 1 cap PO DAILYPRN PRN 03/11/19 Zinc 50 mg PO DAILY 03/11/19 - Past Medical/Surgical History Diabetic: No -: Anemia -: Cognitive communication deficit -: cognitive impairment -: depression -: dysphagia -: gerd -: hyperlipidemia -: htn -: hypothyroidism -: encephalopathy -: muscle weakness -: parkinson's -: nerve stimulator for parkinson's - Social History Alcohol use: No CD- Drugs: No Caffeine use: No Place of Residence: Home Review of Systems is unable to be obtained Physical Examination Temp Pulse Resp BP Pulse Ox 97.5 F 72 22 H 114/51 L 100 03/12/19 04:00 03/12/19 06:00 03/12/19 06:00 03/12/19 06:00 03/12/19 06:00 General: Unresponsive Respiratory: Clear to auscultation bilaterally Cardiovascular: No edema, Regular rate/rhythm Gastrointestinal: Normal bowel sounds, Soft and benign Musculoskeletal: No clubbing, No swelling, No warmth Integumentary: No rashes, No breakdown Laboratory Data (last 24 hrs) 03/11/19 14:12: PT 11.9, INR 1.01, APTT 27.6 03/11/19 14:12: WBC 11.9 H, Hgb 12.6, Hct 38.4, Plt Count 338 03/11/19 14:12: Sodium 142, Potassium 3.8, BUN 19 H, Creatinine 0.75, Glucose 236 H, Total Bilirubin 0.6, AST 17, ALT 7 L, Alkaline Phosphatase 74, Lipase 251 - Problems (1) Acute respiratory failure Current Visit: Yes Status: Acute Plan: Patient is 64 years of age admitted with problems swallowing she has hypoxic hypercapnic history of end-stage Parkinson's disease with deep brain stimulator chest x-rays clear white count is minimally elevated advance diet as tolerated fold off from the swallowing test right now titrate oxygen to a sat of 90% recheck ABGs Qualifiers: Respiratory failure complication: hypoxia and hypercapnia Qualified Code(s) : J96.01 - Acute respiratory failure with hypoxia; J96.02 - Acute respiratory failure with hypercapnia
[2019-03-12] MEDS ORDERED: LISINOPRIL 10 MG TAB PO SCH (09:00)
[2019-03-12] MEDS: CARBIDOPA/LEVODOPA 25/100 TAB PO SCH ×4 (09:00→21:14)
[2019-03-12] MEDS: ESTRADIOL 1 MG PO SCH (09:00)
[2019-03-12] MEDS: ENTACAPONE 200 MG TAB PO SCH ×4 (09:00→21:14)
[2019-03-12] MEDS: ASPIRIN EC 81 MG TAB PO SCH ×2 (09:00→12:26)
[2019-03-12] MEDS ORDERED: AMITRIPTYLINE 10 MG TAB PO SCH ×2 (09:00→21:00)
[2019-03-12] MEDS: FERROUS SULFATE 325 MG TAB PO SCH ×2 (09:00→12:26)
[2019-03-12] MEDS ORDERED: ATORVASTATIN 10 MG TAB PO SCH (09:00)
[2019-03-12] MEDS: ZINC SULFATE 220 MG CAP PO SCH ×2 (09:00→12:27)
[2019-03-12] MEDS: FOLIC ACID 1 MG TABLET PO SCH ×3 (09:00→21:13)
[2019-03-12] MEDS: ASCORBIC ACID 500 MG TABLET PO SCH ×2 (09:00→12:27)
[2019-03-12 09:22] LABS: Urine Appearance CLOUDY; Urine Bilirubin NEGATIVE (NEG); Urine Blood NEGATIVE (NEG); Urine Color YELLOW; Urine Glucose NEGATIVE (NEG); Urine Microscopic Reflex ORDER UMIC; Urine Protein 1+ (NEG); Urine Specific Gravity 1.025 (1.005-1.030); Urine Urobilinogen 0.2 mg/dL (0.2-1.0)
[2019-03-12 09:34] LABS: Urine Bacteria <20 /HPF (<20); Urine Culture Reflex Order REFLEXED; Urine Mucus 1+ /HPF (NONE SEEN)
--- NOTE | 2019-03-12 12:14 | RAD REPORT ---
EXAM DESCRIPTION: RAD - Barium Swallow Modified - 03/12/2019 12:03 pm CLINICAL HISTORY: Dysphagia, difficulty swallowing COMPARISON: None. TECHNIQUE: The patient was given liquid, semi-solid and solid forms of barium. Lateral view fluorosc opic imaging was performed in conjunction with speech pathology service. FINDINGS: Cin[place]oop acquisitions: 24 Fluoro time: 5 minutes 4 seconds Laryngeal penetration with thin by teaspoon cup cleared. Laryngeal penetration with nectar,honey and puree not cleared. Aspiration no cough with thin by straw,with nectar by teaspoon,with honey by teas mitul and residual wiht puree. Pharyngeal residue vallecular moderate to severe with nectar,.honey ,pu ree and mechanical soft. Pharengeal residue pyriform severe with thin,nectar ,honey ,puree and mecha nical soft. Pharyngeal residue posterior wall mild with puree and mechanical soft. IMPRESSION: Modified barium swallow as summarized above and fully detailed on the speech pathology r eport.
--- NOTE | 2019-03-12 13:30 | P.PN ---
Subjective Date of Service: 03/12/19 Primary Care Provider: Mckenzie Chief Complaint: Respiratory failure Review of Systems 10-point ROS is otherwise unremarkable Physical Examination - Vital Signs Temperature: 97.5 F Blood Pressure: 129/49 Pulse: 91 Respirations: 21 Pulse Ox (%): 98 - Physical Exam General: Alert, In no apparent distress HEENT: Atraumatic, PERRLA, EOMI Neck: Supple, JVD not distended Respiratory: Normal air movement, Crackles/rales, Expiratory wheezes, Inspiratory wheezes Cardiovascular: Regular rate/rhythm, Normal S1 S2 Gastrointestinal: Normal bowel sounds, No tenderness Musculoskeletal: No tenderness Integumentary: No rashes Neurological: Normal speech, Normal tone, Normal affect Lymphatics: No axilla or inguinal lymphadenopathy - Studies Laboratory Data (last 24 hrs) 03/11/19 14:12: PT 11.9, INR 1.01, APTT 27.6 03/11/19 14:12: WBC 11.9 H, Hgb 12.6, Hct 38.4, Plt Count 338 03/11/19 14:12: Sodium 142, Potassium 3.8, BUN 19 H, Creatinine 0.75, Glucose 236 H, Total Bilirubin 0.6, AST 17, ALT 7 L, Alkaline Phosphatase 74, Lipase 251 Medications List Reviewed: Yes Assessment And Plan - Current Problems (Diagnosis) (1) Acute respiratory failure Current Visit: Yes Status: Acute Plan: Acute respiratory failure most likely secondary to hypercapnia secondary to Parkinson's disease -currently started on BiPAP will wean as tolerated -duo nebs, steroids, PO abx -pulmonology is consulted awaiting recommendations at this time -will monitor patient closely here in the hospital Qualifiers: Respiratory failure complication: hypoxia and hypercapnia Qualified Code(s) : J96.01 - Acute respiratory failure with hypoxia; J96.02 - Acute respiratory failure with hypercapnia (2) Parkinsons disease Current Visit: Yes Status: Acute Plan: Parkinson's disease with chronic dementia, dysphagia, respiratory insufficiency and declining mentation now -will monitor closely -consulted PT/OT and Speech. (3) Hypertension Current Visit: Yes Status: Chronic Plan: Restart home medication Qualifiers: Hypertension type: essential hypertension Qualified Code(s): I10 - Essential (primary) hypertension (4) Hypothyroidism Current Visit: Yes Status: Chronic Plan: Restart home medication Qualifiers: Hypothyroidism type: acquired Qualified Code(s): E03.9 - Hypothyroidism, unspecified (5) Chronic GERD Current Visit: Yes Status: Acute Plan: Restart home medication Discharge Plan: Home Plan to discharge in: Greater than 2 days - Code Status/Comfort Care Code Status Assessed: Yes Critical Care: No
[2019-03-12 13:47] LABS: Arterial Blood Carboxyhemoglob 1.2 % (0-1.5); Blood Gas Oxyhemoglobin 94.4 % (94-97); Blood O2 Saturation 96.1 % (92-98.5)
[2019-03-12] MEDS: PIPER/TAZO/NS 3.375gm 3.375 GM/100 ML BAG IV SCH (15:02)
[2019-03-13] MEDS ORDERED: NA CHLORIDE 0.9% 500 ML IV SCH
[2019-03-13] MEDS: PIPER/TAZO/NS 3.375gm 3.375 GM/100 ML BAG IV SCH ×2 (00:16→09:39)
[2019-03-13] MEDS: LEVOTHYROXINE SOD 0.05 MG TABLET PO SCH (05:58)
[2019-03-13 06:14] LABS: Absolute Lymphocytes (CBC) 1.6 K/uL (0.7-4.9); Basophils % 0.4 % (0-1.3); Hematocrit 32.1 % (36.0-45.0); Lymphocytes % 15.7 % (15.3-44.8); MPV 8.5 fL (7.6-11.3); RBC Red Blood Cell Count 3.56 M/uL (3.86-4.86)
[2019-03-13 06:22] LABS: ALT/SGPT 15 U/L (12-78); AST/SGOT 25 U/L (15-37); Albumin 3.1 g/dL (3.4-5.0); Alkaline Phosphatase 64 U/L (45-117); BUN Blood Urea Nitrogen 13 mg/dL (7-18); Bicarbonate 29 mmol/L (21-32); Bilirubin Total 0.6 mg/dL (0.2-1.0); Glucose Level 91 mg/dL (74-106); Potassium 3.2 mmol/L (3.5-5.1); Protein, Total 6.2 g/dL (6.4-8.2); Sodium Level 145 mmol/L (136-145)
[2019-03-13] MEDS: ASPIRIN EC 81 MG TAB PO SCH (09:00)
[2019-03-13] MEDS: CARBIDOPA/LEVODOPA 25/100 TAB PO SCH (09:42)
[2019-03-13] MEDS: ASCORBIC ACID 500 MG TABLET PO SCH (09:42)
[2019-03-13] MEDS: FOLIC ACID 1 MG TABLET PO SCH (09:42)
[2019-03-13] MEDS: FERROUS SULFATE 325 MG TAB PO SCH (09:42)
[2019-03-13] MEDS: ENTACAPONE 200 MG TAB PO SCH (09:42)
[2019-03-13] MEDS: ZINC SULFATE 220 MG CAP PO SCH (09:43)
[2019-03-13] MEDS: ESTRADIOL 1 MG PO SCH (09:45)
[2019-03-13] MEDS ORDERED: ASPIRIN 81 MG CHEWABLE TABLET PO SCH (10:15)
--- NOTE | 2019-03-13 10:57 | P.PN ---
Subjective Date of Service: 03/13/19 Primary Care Provider: Mckenzie Chief Complaint: Parkinson's disease Subjective: Improving (Patient is improving and is not requiring BiPAP mild aspiration noted no evidence of an infection) Review of Systems is unable to be obtained Physical Examination - Vital Signs Temperature: 98.5 F Blood Pressure: 115/60 Pulse: 78 Respirations: 22 Pulse Ox (%): 97 - Physical Exam General: Unresponsive Neck: Supple Respiratory: Clear to auscultation bilaterally - Studies Medications List Reviewed: Yes Assessment & Plan - Problems (Diagnosis) (1) Acute respiratory failure Current Visit: Yes Status: Resolved Plan: Patient is 64 years of age admitted with problems swallowing she has hypoxic hypercapnic history of end-stage Parkinson's disease with deep brain stimulator chest x-rays clear white count is minimally elevated advance diet as tolerated fold off from the swallowing test right now titrate oxygen to a sat of 90% recheck ABGs Qualifiers: Respiratory failure complication: hypoxia and hypercapnia Qualified Code(s) : J96.01 - Acute respiratory failure with hypoxia; J96.02 - Acute respiratory failure with hypercapnia (2) Parkinsons disease Current Visit: Yes Status: Acute Plan: Patient has end-stage Parkinson's disease was admitted with choking spells probably has mild degree of aspiration which is worse in the mornings seen by speech therapist discharged home no antibiotics needed no change in therapy blood gases mild hypercapnia he will not qualify for noninvasive ventilator
--- NOTE | 2019-03-13 17:11 | P.DS ---
Admission Date: 03/11/19 Discharge Date: 03/13/19 Primary Care Provider: Mckenzie Disposition: ROUTINE DISCHARGE Discharge Condition: GOOD Reason for Admission: Parkinson's disease Consultations: Pulmonology - Problems (1) Acute respiratory failure Current Visit: Yes Status: Resolved Qualifiers: Respiratory failure complication: hypoxia and hypercapnia Qualified Code(s) : J96.01 - Acute respiratory failure with hypoxia; J96.02 - Acute respiratory failure with hypercapnia (2) Parkinsons disease Current Visit: Yes Status: Acute (3) Hypertension Current Visit: Yes Status: Chronic Qualifiers: Hypertension type: essential hypertension Qualified Code(s): I10 - Essential (primary) hypertension (4) Hypothyroidism Current Visit: Yes Status: Chronic Qualifiers: Hypothyroidism type: acquired Qualified Code(s): E03.9 - Hypothyroidism, unspecified (5) Chronic GERD Current Visit: Yes Status: Acute Brief History of Present Illness: This is a 64-year-old female with significant past medical history of Parkinson' s, hyperlipidemia, hypertension and respiratory insufficiency secondary to Parkinson's disease, dysphagia secondary to Parkinson's disease who presents to the ED complaining of having difficulty breathing. Patient's at bedside states that she started having coughing and breathing difficulty this a.m. and which has progressively worsened throughout the day. Patient has generalized weakness as well as dysphasia secondary to Parkinson's disease. Patient has been having some mild cough on an off along with congestion however this morning is when she started getting worse and her brought her to the hospital to get a further checked out. Patient denies having any fever chills nausea vomiting or any other associated symptoms at this time. In the ER patient was seen and evaluated lab work and imaging was done was found to have hypercapnic respiratory failure and thus patient was admitted to the hospital for further workup. Hospital Course: Overall during the hospital stay patient remained stable Patient was initially admitted to the hospital for acute hypercapnic respiratory failure most likely secondary to respiratory insufficiency secondary to Parkinson's disease. Patient was initially placed on BiPAP and was weaned off successfully. Was started on steroids and antibiotics for possible presumed pneumonia. Pro calcitonin was negative. Pulmonology was consulted who recommended the patient can have a antibiotics stopped here in the hospital. Patient when it was able to weaned off of BiPAP and to nasal cannula was discharged home under stable condition. Patient does use home oxygenation at home. At baseline does have advanced dementia. Was asked to follow up with primary care provider along with pulmonology. Family at bedside did demonstrate understanding and thus patient was discharged home under stable condition. Vital Signs/Physical Exam: Temp Pulse Resp BP Pulse Ox 97.9 F 103 H 22 H 110/59 L 96 03/13/19 12:00 03/13/19 13:00 03/13/19 13:00 03/13/19 13:00 03/13/19 13:00 General: Alert, In no apparent distress, Demented HEENT: Atraumatic, PERRLA, EOMI Neck: Supple, JVD not distended Respiratory: Clear to auscultation bilaterally, Normal air movement Cardiovascular: Regular rate/rhythm, Normal S1 S2 Gastrointestinal: Normal bowel sounds, No tenderness Musculoskeletal: No tenderness Integumentary: No rashes Neurological: Normal tone, Normal affect, Abnormal speech Lymphatics: No axilla or inguinal lymphadenopathy Laboratory Data at Discharge: WBC 10.2 K/uL (4.3-10.9) D 03/13/19 05:30 Hgb 10.8 g/dL (12.0-15.0) L 03/13/19 05:30 Hct 32.1 % (36.0-45.0) L 03/13/19 05:30 Plt Count 201 K/uL (152-406) 03/13/19 05:30 PT 11.9 SECONDS (9.5-12.5) 03/11/19 14:12 INR 1.01 03/11/19 14:12 APTT 27.6 SECONDS (24.3-36.9) 03/11/19 14:12 Sodium 145 mmol/L (136-145) 03/13/19 05:30 Potassium 3.2 mmol/L (3.5-5.1) L 03/13/19 05:30 BUN 13 mg/dL (7-18) 03/13/19 05:30 Creatinine 0.47 mg/dL (0.55-1.3) L 03/13/19 05:30 Glucose 91 mg/dL (74-106) 03/13/19 05:30 Total Bilirubin 0.6 mg/dL (0.2-1.0) 03/13/19 05:30 AST 25 U/L (15-37) 03/13/19 05:30 ALT 15 U/L (12-78) 03/13/19 05:30 Alkaline Phosphatase 64 U/L (45-117) 03/13/19 05:30 Lipase 251 U/L (73-393) 03/11/19 14:12 Home Medications: Amitriptyline HCl 1 tab PO DAILY 03/11/19 Ascorbic Acid [Vitamin C*] 500 mg PO DAILY 03/11/19 Aspirin [Aspir-Low] 1 tab PO DAILY 03/11/19 Atorvastatin Calcium 10 mg PO DAILY 03/11/19 Carbidopa/Levodopa [Carbidopa-Levodopa 25-100 Tab] 1 tab PO QID 03/11/19 Creon Solution 6,000 units PO TIDWM 03/11/19 Entacapone 1 tab PO QID 03/11/19 Estradiol [Estrace] 1 tab PO DAILY 03/11/19 Ferrous Sulfate [Ferrous Sulfate*] 1 tab PO DAILY 03/11/19 Folic Acid 1 tab PO BID 03/11/19 Levothyroxine [Synthroid*] 50 mcg PO DAILY 03/11/19 Lisinopril 1 tab PO DAILY 03/11/19 Melatonin 10 mg PO BEDTIME 03/11/19 Meloxicam 1 tab PO DAILY 03/11/19 Metoprolol Succinate [Toprol Xl*] 25 mg PO BID 03/11/19 Nuedexta 10 mg PO Q12H 03/11/19 Rivastigmine 13.3 mg TOP DAILY 03/11/19 Sennosides 8.6 mg PO DAILY 03/11/19 Temazepam 1 cap PO DAILYPRN PRN 03/11/19 Zinc 50 mg PO DAILY 03/11/19 Diet: Regular Activity: Ad mauro Followup: Justin Porter MD [ACTIVE - CAN ADMIT] - 1 Week
[2019-03-13] MEDS ORDERED: ENSURE ENLIVE 237 ML CAN PO SCH (21:00)
== END 2019-03-13 13:50 | disposition home or self-care (01) | DRG 189 ==
LOC: ER 13:58 → ERHOLD 15:49 → 3RD-ICU 20:39
PROVIDERS: ADMIT Family Medicine; ATTEND Family Medicine
DX: J96.02 Acute respiratory failure with hypercapnia (principal); J96.01 Acute respiratory failure with hypoxia; G20 Parkinson's disease; F02.80 Dementia in other diseases classified elsewhere, unspecified severity, without behavioral disturbance, psychotic disturbance, mood disturbance, and anxiety; R13.10 Dysphagia, unspecified; I10 Essential (primary) hypertension; E03.9 Hypothyroidism, unspecified; K21.9 Gastro-esophageal reflux disease without esophagitis; E78.5 Hyperlipidemia, unspecified; Z79.82 Long term (current) use of aspirin
CPT/HCPCS: 36415; 51702; 71045; 74230; 80048; 80053; 80076; 81003; 81015; 82550; 82553; 82805; 82962; 83605; 83690; 84145; 84484; 85025; 85610; 85730; 87040; 87086; 87088; 92526; 92610; 92611; 93005; 94640; 94660; 94667; 96365; 96366; 96375; 97110; 97112; 97161; 97165; 97530; 99291; 99292; J2543; J2930; J7030

== ENCOUNTER 2019-04-04 14:54 | Inpatient (IN) | payer OTHER ==
--- OUTSIDE RECORDS SUMMARY | 2019-04-04 14:57 | XMS REPORT | Clinical Summary ---
:1955 Author Organization [facility] Address [address] [facility] [address] Care Team Providers Name Role Phone Tad [...] times daily. pancrelipase, Take 24,000 0 Active Pnb-Cwqc-Tprc, units of (CREON) 24,000-76,000 lipase by -120,000 [...] hematoma (HCC); MD Shawn Acute encephalopathy after 04/03/2018 Social History Tobacco Use Types Packs/Day Years [...] procedure are in the results section. after 04/03/2018 Results RHYTHM STRIP - SCAN (04/16/2018 8:51 AM CDT) Narrative Performed At POC-Glucose meter (04/09/2018 1:01 PM CDT)Only the most recent of2 resultswithin the time period is included. POC-Glucose Meter 95Comment: TESTED AT 70 - 110 mg/dL [facility] [address] [facility] [id number] Specimen Blood Performing Organization Address City/State/Zipcode Phone Number [address] brain without IV contrast portable (04/09/2018 6:39 AM CDT) Specimen Narrative Performed At FINAL REPORT [facility] EXAM: CT head without contrast. CLINICAL [...] MD Report Verified Date/Time:04/09/2018 06:49:22 Reading Location: [address] Transitional Reading Room Procedure Note Interface, [...] Report Verified Date/Time: 04/09/2018 06:49:22 Reading Location: [address] Transitional Reading Room Performing Organization Address City/[facility] Phone Number GE RIS Urinalysis w/Microscopic + Reflex to Culture (04/09/2018 4:01 AM CDT) Color, UA Yellow [facility] Clarity, UA Clear [facility] Specific [place], UA 1.015 1.001 - 1.035 [facility] pH, UA 7.0 5.0 - 8.0 [facility] Protein, UA Negative Negative [facility] Glucose, UA Negative Negative [facility] Ketones, UA Negative Negative [facility] Bilirubin, UA Negative Negative [facility] Blood, UA Negative Negative [facility] Nitrite, UA Negative Negative [facility] Leukocytes, UA Small (A) Negative [facility] Urobilinogen, UA 0.2 0.2 - 1.0 mg/dL [facility] RBC, UA 1 /HPF [facility] WBC, UA 22 /HPF [facility] Mucus Rare [facility] Squam Epithel, UA <1 /HPF [facility] Amorphous Crystals Rare [facility] Specimen Source [facility] Specimen Urine Performing Organization Address City/[facility]/Zipcode Phone Number [place] [phone] [place] [address] [place] aPTT (04/09/2018 4:01 AM CDT) PTT 27.7 22.5 - 36.0 seconds [facility] Specimen Blood Performing Organization Address [facility] Cent[facility] Phone Number [address] [address] [place] Prothrombin time/INR (04/09/2018 4:01 AM CDT) Protime 14.0 11.7 - 14.7 seconds [facility] INR 1.1 <=5.9 [facility] Specimen Blood Narrative Performed At [facility] RECOMMENDED COUMADIN/WARFARIN INR THERAPY RANGES STANDARD DOSE: 2.0 - 3.0 Includes: PROPHYLAXIS for venous thrombosis, systemic embolization; TREATMENT for venous thrombosis and/or pulmonary embolus. HIGH RISK: Target INR is 2.5-3.5 for patients with mechanical heart valves. Performing Organization Address [facility] Cent[facility]ode Phone Number [address] [address] [place] Urine culture (04/09/2018 4:01 AM CDT) Result See comment [facility] Specimen Urine Narrative Performed At <10,000 col/mL skin shaggy [facility] >100,000 col/mL skin shaggy Performing Organization Address [facility] Cent[facility]ode Phone Number [address] [address] [phone] CENTER Magnesium (04/09/2018 4:01 AM CDT) Magnesium 1.9 1.6 - 2.6 mg/dL [facility] Specimen Blood Narrative Performed At Once on admission and Daily AM afterwards [facility] Once on admission and Daily AM afterwards Performing Organization Address City/[facility] Phone Number [address] [address] [phone] [place] Hepatic function panel (04/09/2018 4:01 AM CDT) Protein, Total 6.3 6.0 - 8.3 gm/dL [facility] Albumin 3.8 3.5 - 5.0 g/dL [facility] Total Bilirubin 0.6 0.2 - 1.2 mg/dL [facility] Bilirubin, Direct 0.3 0.1 - 0.5 mg/dL [facility] Alkaline Phosphatase 76 40 - 150 U/L [facility] AST 17 5 - 34 U/L [facility] ALT 16 6 - 55 U/L [facility] Specimen Blood Narrative Performed At Once on admission and Daily AM afterwards [facility] Once on admission and Daily AM afterwards Performing Organization Address City/State/[facility]r Phone Number [address] [address] [place] Basic Metabolic Panel (04/09/2018 4:01 AM CDT) Sodium 137 136 - 145 meq/L [facility] Potassium 4.0 3.5 - 5.1 meq/L [facility] Chloride 107 98 - 107 meq/L [facility] CO2 22 22 - 29 meq/L [facility] BUN 16 7 - 21 mg/dL [facility] Creatinine 0.52 (L) 0.57 - 1.25 mg/dL [facility] Glucose 98 70 - 105 mg/dL [facility] Calcium 9.2 8.4 - 10.2 mg/dL [facility] EGFR 119Comment: ESTIMATED GFR IS mL/min/1.73 sq m [facility] NOT ACCURATE CREATININE [facility] CLEARANCE IN PREDICTING GLOMERULAR FILTRATION RATE. ESTIMATED GFR IS NOT APPLICABLE FOR DIALYSIS PATIENTS. Specimen Blood Narrative Performed At Once on admission and Daily AM afterwards [facility] Once on admission and Daily AM afterwards Performing Organization Address City/State/Zipcode Phone Number [facility] [address] [place] [address] CENTER after 04/03/2018 Insurance Payer Benefit Plan / Group Subscriber ID Type Phone Address MEDICARE MEDICARE A B xxxxxxxxxxx Medicare Rhona Muller Personal/Family Self 1955 [address] (Home) [place] [address] Advance Directives For more information, please contact:[place] [phone] [place], [place] [phone] Code Status Date Activated Date Inactivated Comments Full Code 04/09/2018 3:40 AM 04/09/2018 4:30 PM This code status was determined by: Patient
--- OUTSIDE RECORDS SUMMARY | 2019-04-04 14:57 | XMS REPORT | Summary of Care ---
:1955 Author Organization [facility] Address [address] [place] [address] Care Team Providers Name Role Phone Charles Raphael MD Primary Care Provider Reason for Visit Reason Comments Results Encounter Details Date Type Department Care Team Description 03/12/2019 Telephone [facility] Charles Raphael MD Results - [address] [place] [address] [place] [phone] Allergies Active Allergy Reactions Severity Noted Date Comments Lidocaine Hcl Other - See comments 02/18/2015 "makes my heart stop" documented as of this encounter (statuses as of 03/12/2019) Medications Medication Sig Dispensed Refills Start Date End Date Status MULTIVITAMINS WITH Take by mouth. 0 Active IRON (DAILY MULTIVITAMINS/IRON ORAL) aspirin 81 mg chewable Take 81 mg by 0 Active tablet mouth daily. Zinc (CHELATED ZINC) Take by mouth. 0 Active 50 mg Tab ascorbic acid (VITAMIN Take 500 mg by 0 Active C) 500 mg tablet mouth daily. pimavanserin Take by mouth. 0 Active (NUPLAZID) 17 mg Tab acetaminophen-codeine Take 1 tablet by 40 tablet 0 08/19/2017 Active 300-30 mg tablet mouth every 4 (four) hours as needed for Pain (scale 4-6). ondansetron 4 mg Take 1 tablet by 40 tablet 11 08/19/2017 Active tablet mouth every 6 (six) hours as needed for Nausea and Vomiting (N/V). cefdinir 300 mg Take 2 capsules 8 capsule 0 02/25/2018 Active capsule by mouth daily. SERTRALINE 100 mg TAKE 1 TABLET BY 90 tablet 0 08/04/2018 Active tablet MOUTH EVERY DAY DEXILANT 60 mg capsule TAKE 1 CAPSULE 90 capsule 0 08/04/2018 Active BY MOUTH EVERY DAY amitriptyline 10 mg Take 1 tablet by 90 tablet 3 09/08/2018 Active tabletIndications: mouth at Depression, bedtime. unspecified depression type atorvastatin (LIPITOR) Take 1 tablet by 90 tablet 3 09/08/2018 Active 10 mg mouth at tabletIndications: bedtime. Hyperlipidemia, unspecified hyperlipidemia type oumjcd-jqrrisrb-mbdoes TAKE 2 CAPSULES 540 capsule 3 09/08/2018 Active e (CREON) 6,000-19,000 BY MOUTH 3 TIMES -30,000 unit A DAY WITH A capsuleIndications: MEAL Pancreatic insufficiency carbidopa-levodopa Take 1 tablet by 360 tablet 3 09/08/2018 Active 25-100 mg mouth 4 (four) tabletIndications: times daily. Parkinson disease entacapone 200 mg Take 1 tablet by 360 tablet 3 09/08/2018 Active tabletIndications: mouth 4 (four) Parkinson disease times daily. foLIC acid 1 mg TAKE 1 TABLET BY 180 tablet 3 09/08/2018 Active tabletIndications: MOUTH TWICE A Anemia, unspecified DAY type estradiol 1 mg Take 1 tablet by 90 tablet 3 09/08/2018 Active tabletIndications: mouth daily. Insomnia, unspecified type levothyroxine 50 mcg TAKE 1 TABLET BY 90 tablet 3 09/08/2018 Active tabletIndications: MOUTH EVERY DAY Hypothyroidism, IN THE MORNING unspecified type lisinopril 10 mg Take 1 tablet by 90 tablet 3 09/08/2018 Active tabletIndications: mouth daily. Essential hypertension meloxicam 15 mg Take 1 tablet by 90 tablet 3 09/08/2018 Active tabletIndications: mouth daily. Arthritis dextromethorphan-quini Take 1 tablet by 180 capsule 3 09/08/2018 Active dine (NUEDEXTA) 20-10 mouth every 12 mg CapIndications: (twelve) hours. Dementia without behavioral disturbance, unspecified dementia type metoprolol succinate Take 1 tablet by 60 tablet 2 09/22/2018 Active XL 50 mg 24 hr tablet mouth 2 (two) times daily. rivastigmine 13.3 Apply 1 Patch to 30 Patch 1 01/06/2019 Active mg/24 hour PT24 skin daily. TEMAZEPAM 30 mg TAKE 1 CAPSULE 30 capsule 0 02/23/2019 Active capsuleIndications: BY MOUTH AT Insomnia, unspecified BEDTIME FOR type INSOMNIA documented as of this encounter (statuses as of 03/12/2019) Active Problems Problem Noted Date Complicated UTI (urinary tract infection) 02/21/2018 Elevated troponin 02/21/2018 Chest pain 06/06/2016 Hypothyroid 06/06/2016 HLD (hyperlipidemia) 06/06/2016 Essential hypertension 01/12/2016 Hyperlipidemia with target LDL less than 100 01/12/2016 Hypothyroidism, unspecified hypothyroidism type 01/12/2016 Parkinson disease 01/12/2016 Arthritis 01/12/2016 Insomnia 01/12/2016 Depression 01/12/2016 documented as of this encounter (statuses as of 03/12/2019) Immunizations Name Administration Dates Next Due Influenza Virus Vaccine Quad IM 3+ 02/24/2018 (Deferred: - VACCINE YRS UNAVAILABLE IN PHARMACY) documented as of this encounter Social History Tobacco Use Types Packs/Day Years Used Date Never Smoker Smokeless Tobacco: Never Used Alcohol Use Drinks/Week oz/Week Comments No Sex Assigned at Date Recorded Not on file Job Start Date Occupation Industry Not on file Not on file Not on file Travel History Travel Start Travel End No recent travel history available. documented as of this encounter Last Filed Vital Signs Not on filedocumented in this encounter Plan of Treatment Health Maintenance Due Date Last Done Comments DTaP,Tdap,and Td Vaccines (1 - Tdap) 1973 MAMMOGRAM 1994 COLONOSCOPY 01/15/2004 Zoster Recombinant Vaccine (SHINGRIX) (1 of 2) 01/15/2004 Medicare Wellness Visit 2019 10/22/2016 Osteoporosis Screening 2019 PNEUMOCOCCAL VACCINES 65+ (1 of 2 - PCV13) 2019 INFLUENZA VACCINE 04/12/2019 HEPATITIS C (HCV) SCREEN Completed 02/16/2015 documented as of this encounter Results Not on filedocumented in this encounter Insurance Payer Benefit Plan Subscriber ID Effective Phone Address Type / Group Dates AETNA - AETNA MEBRXLKC 2018-Pres [address] Medicare Adv MANAGED MEDICARE ADV ent [id number] [place] [address] MEDICARE MEDICARE PART xxxxxxxxxxx 2015-Pres [phone] Medicare A & B [facility] [phone] [place] [address] [phone] documented as of this encounter
--- OUTSIDE RECORDS SUMMARY | 2019-04-04 14:57 | XMS REPORT ---
:1955 [facility] Address [address] [place] [address] [address] [place] [address] Care Team Providers Name Role Phone MICHELLE [...] (BEAKER) (test 95 mg/dL 70-[address] [facility] [address] [place] [address] jpre=[id number]) [facility] [address] POCT-GLUCOSE [id number] 07:00:00 Test Item Value Reference Range Comments POC-GLUCOSE METER (BEAKER) 105 mg/dL 70-110 TESTED AT [address] (test vbxb=0480) [facility] [address] [address] BRAIN WITHOUT IV CONTRAST - [id number] 06:49:00Reason for exam:-> sdhFINAL REPORT EXAM: CT [...] Sotoort Verified Date/Time: 04/09/2018 06:49:22 Reading Location: [address] Transitional Reading Room Electronically signedby: LINDSEY SOTO MD on 04/09/2018 06:49 [id number] 04:32:00 Test Item Value Reference Range Comments MAGNESIUM (BEAKER) (test yfwh=835) 1.9 mg/dL 1.6-2.6 Once on admission and Daily AM afterwardsOnce on admission and Daily AM afterwardsBASIC METABOLIC [id number] 04:32:00 Test Item Value Reference Range Comments SODIUM (BEAKER) (test 137 meq/L 136-145 ecpk=756) POTASSIUM (BEAKER) (test 4.0 meq/L 3.5-5.1 oybt=764) CHLORIDE (BEAKER) (test 107 meq/L 98-107 dyvw=802) CO2 (BEAKER) (test 22 meq/L 22-29 hrfv=650) BLOOD UREA NITROGEN 16 mg/dL 7-21 (BEAKER) (test vsft=178) CREATININE (BEAKER) (test 0.52 mg/dL 0.57-1.25 thnk=810) GLUCOSE RANDOM (BEAKER) 98 mg/dL 70-105 (test zrlp=835) CALCIUM (BEAKER) (test 9.2 mg/dL 8.4-10.2 nebk=737) EGFR (BEAKER) (test 119 mL/min/1.73 sq m ESTIMATED GFR IS NOT nrym=8325) ACCURATE CREATININE CLEARANCE IN PREDICTING GLOMERULAR FILTRATION RATE. ESTIMATED GFR IS NOT APPLICABLE FOR DIALYSIS PATIENTS. Once on admission and Daily AM afterwardsOnce on admission and Daily AM afterwardsHEPATIC FUNCTION [id number] 04:32:00 Test Item Value Reference Range Comments TOTAL PROTEIN (BEAKER) (test lnls=774) 6.3 gm/dL 6.0-8.3 ALBUMIN (BEAKER) (test ebdz=8489) 3.8 g/dL 3.5-5.0 BILIRUBIN TOTAL (BEAKER) (test nqdc=444) 0.6 mg/dL 0.2-1.2 BILIRUBIN DIRECT (BEAKER) (test vytk=110) 0.3 mg/dL 0.1-0.5 ALKALINE PHOSPHATASE (BEAKER) (test euic=306) 76 U/L 40-150 AST (SGOT) (BEAKER) (test siuv=656) 17 U/L 5-34 ALT (SGPT) (BEAKER) (test shhl=289) 16 U/L 6-55 Once on admission and Daily AM afterwardsOnce on admission and Daily AM afterwardsPROTHROMBIN [id number] 04:26:00 Test Item Value Reference Range Comments PROTIME (BEAKER) (test ggdh=956) 14.0 seconds 11.7-14.7 INR (BEAKER) (test mfsz=150) 1.1 <=5.9 RECOMMENDED COUMADIN/WARFARIN INR THERAPY RANGESSTANDARD DOSE: 2.0 - 3.0 Includes: PROPHYLAXIS forvenous thrombosis, systemic embolization; TREATMENT for venous thrombosis and/or pulmonary embolus.HIGH RISK: Target INR is 2.5-3.5 for patients with mechanical heart valves.[id number] 04:26:00 Test Item Value Reference Range Comments PARTIAL THROMBOPLASTIN TIME (BEAKER) (test 27.7 seconds 22.5-36.0 iipi=855) URINALYSIS W/ REFLEX URINE [id number] 04:21:00 Test Item Value Reference Range Comments COLOR (BEAKER) (test itxt=508) Yellow CLARITY (BEAKER) (test yipm=547) Clear SPECIFIC GRAVITY UA (BEAKER) (test drra=349) 1.015 1.001-1.035 PH UA (BEAKER) (test kzgz=089) 7.0 5.0-8.0 PROTEIN UA (BEAKER) (test wqjf=141) Negative Negative GLUCOSE UA (BEAKER) (test kjui=358) Negative Negative KETONES UA (BEAKER) (test qjub=798) Negative Negative BILIRUBIN UA (BEAKER) (test bxbt=794) Negative Negative BLOOD UA (BEAKER) (test icbp=534) Negative Negative NITRITE UA (BEAKER) (test gnbh=959) Negative Negative LEUKOCYTE ESTERASE UA (BEAKER) (test cghz=271) Small Negative UROBILINOGEN UA (BEAKER) (test ddxg=882) 0.2 mg/dL 0.2-1.0 RBC UA (BEAKER) (test nwqt=298) 1 /HPF WBC UA (BEAKER) (test qmfh=891) 22 /HPF MUCUS (BEAKER) (test dxvh=0335) Rare SQUAMOUS EPITHELIAL (BEAKER) (test dawz=573) < /HPF AMORPHOUS CRYSTALS (BEAKER) (test pqyc=7507) Rare SOURCE(BEAKER) (test ldwg=8740)
--- OUTSIDE RECORDS SUMMARY | 2019-04-04 14:58 | XMS REPORT | Summary of Care ---
:1955 Author Organization [facility] Address [address] [place] [address] Care Team Providers Name Role Phone Charles Raphael MD Primary Care Provider Reason for Visit Reason Comments Refill Request Encounter Details Date Type Department Care Team Description 03/20/2019 Refill [facility] Family Medicine Charles Raphael MD Refill Request - [address] [place] [address] [place] [phone] Allergies Active Allergy Reactions Severity Noted Date Comments Lidocaine Hcl Other - See comments 02/18/2015 "makes my heart stop" documented as of this encounter (statuses as of 03/22/2019) Medications Medication Sig Dispensed Refills Start Date End Date Status MULTIVITAMINS WITH Take by 0 Active IRON (DAILY mouth. MULTIVITAMINS/IRON ORAL) aspirin 81 mg Take 81 mg by 0 Active chewable tablet mouth daily. Zinc (CHELATED ZINC) Take by 0 Active 50 mg Tab mouth. ascorbic acid Take 500 mg 0 Active (VITAMIN C) 500 mg by mouth tablet daily. pimavanserin Take by 0 Active (NUPLAZID) 17 mg Tab mouth. acetaminophen-codein Take 1 tablet 40 tablet 0 08/19/2017 Active e 300-30 mg tablet by mouth every 4 (four) hours as needed for Pain (scale 4-6). ondansetron 4 mg Take 1 tablet 40 tablet 11 08/19/2017 Active tablet by mouth every 6 (six) hours as needed for Nausea and Vomiting (N/V). cefdinir 300 mg Take 2 8 capsule 0 02/25/2018 Active capsule capsules by mouth daily. SERTRALINE 100 mg TAKE 1 TABLET 90 tablet 0 08/04/2018 Active tablet BY MOUTH EVERY DAY DEXILANT 60 mg TAKE 1 90 capsule 0 08/04/2018 Active capsule CAPSULE BY MOUTH EVERY DAY amitriptyline 10 mg Take 1 tablet 90 tablet 3 09/08/2018 Active tabletIndications: by mouth at Depression, bedtime. unspecified depression type atorvastatin Take 1 tablet 90 tablet 3 09/08/2018 Active (LIPITOR) 10 mg by mouth at tabletIndications: bedtime. Hyperlipidemia, unspecified hyperlipidemia type vwyiuz-nuuhygtw-rypw TAKE 2 540 capsule 3 09/08/2018 Active ase (CREON) CAPSULES BY 6,000-19,000 -30,000 MOUTH 3 TIMES unit A DAY WITH A capsuleIndications: MEAL Pancreatic insufficiency carbidopa-levodopa Take 1 tablet 360 tablet 3 09/08/2018 Active 25-100 mg by mouth 4 tabletIndications: (four) times Parkinson disease daily. entacapone 200 mg Take 1 tablet 360 tablet 3 09/08/2018 Active tabletIndications: by mouth 4 Parkinson disease (four) times daily. foLIC acid 1 mg TAKE 1 TABLET 180 tablet 3 09/08/2018 Active tabletIndications: BY MOUTH Anemia, unspecified TWICE A DAY type estradiol 1 mg Take 1 tablet 90 tablet 3 09/08/2018 Active tabletIndications: by mouth Insomnia, daily. unspecified type levothyroxine 50 mcg TAKE 1 TABLET 90 tablet 3 09/08/2018 Active tabletIndications: BY MOUTH Hypothyroidism, EVERY DAY IN unspecified type THE MORNING lisinopril 10 mg Take 1 tablet 90 tablet 3 09/08/2018 Active tabletIndications: by mouth Essential daily. hypertension meloxicam 15 mg Take 1 tablet 90 tablet 3 09/08/2018 Active tabletIndications: by mouth Arthritis daily. dextromethorphan-leatha Take 1 tablet 180 capsule 3 09/08/2018 Active nidine (NUEDEXTA) by mouth 20-10 mg every 12 CapIndications: (twelve) Dementia without hours. behavioral disturbance, unspecified dementia type metoprolol succinate Take 1 tablet 60 tablet 2 09/22/2018 Active XL 50 mg 24 hr by mouth 2 tablet (two) times daily. rivastigmine 13.3 Apply 1 Patch 30 Patch 1 01/06/2019 Active mg/24 hour PT24 to skin daily. temazepam 30 mg Take 1 30 capsule 0 03/22/2019 Active capsuleIndications: capsule by Insomnia, mouth at unspecified type bedtime as needed for Insomnia. TEMAZEPAM 30 mg TAKE 1 30 capsule 0 02/23/2019 Discontinued capsuleIndications: CAPSULE BY 9 Insomnia, MOUTH AT unspecified type BEDTIME FOR INSOMNIA documented as of this encounter (statuses as of 03/22/2019) Active Problems Problem Noted Date Complicated UTI (urinary tract infection) 02/21/2018 Elevated troponin 02/21/2018 Chest pain 06/06/2016 Hypothyroid 06/06/2016 HLD (hyperlipidemia) 06/06/2016 Essential hypertension 01/12/2016 Hyperlipidemia with target LDL less than 100 01/12/2016 Hypothyroidism, unspecified hypothyroidism type 01/12/2016 Parkinson disease 01/12/2016 Arthritis 01/12/2016 Insomnia 01/12/2016 Depression 01/12/2016 documented as of this encounter (statuses as of 03/22/2019) Immunizations Name Administration Dates Next Due Influenza [...] Results Not on filedocumented in this encounter Visit Diagnoses Diagnosis Insomnia, unspecified type documented in this encounter Insurance Payer Benefit Plan Subscriber ID Effective Phone Address Type / Group Dates AETNA - AETNA MEBRXLKC 2018-Pres [address] Medicare Adv MANAGED MEDICARE ADV ent [id number] [place] [address] MEDICARE MEDICARE PART xxxxxxxxxxx 2015-Pres [phone] Medicare A & B ent [id number] [place] [address] [phone] documented as of this encounter
--- OUTSIDE RECORDS SUMMARY | 2019-04-04 14:58 | XMS REPORT | Summary of Care ---
:1955 Author Organization [facility] - Health Address [address] [place] [address] Care Team Providers Name Role Phone Charles Raphael MD Primary Care Provider Encounter Details Date Type Department Care Team Description 03/25/2019 Orders Only [facility] Doctor Unassigned, No 301 [facility] Name [place] [id number] Allergies Active Allergy Reactions Severity Noted Date Comments Lidocaine Hcl Other - See comments 02/18/2015 "makes my heart stop" documented as of this encounter (statuses as of 03/25/2019) Medications Medication Sig Dispensed Refills Start Date [...] at tabletIndications: bedtime. Hyperlipidemia, unspecified hyperlipidemia type [id number] TAKE 2 CAPSULES 540 capsule 3 09/08/2018 [...] 01/06/2019 Active mg/24 hour PT24 skin daily. temazepam 30 mg Take 1 capsule 30 capsule 0 03/22/2019 Active capsuleIndications: by mouth at Insomnia, unspecified bedtime as type needed for Insomnia. documented as of this encounter (statuses as of 03/25/2019) Active Problems Problem Noted Date Complicated UTI (urinary tract infection) 02/21/2018 Elevated troponin 02/21/2018 Chest pain 06/06/2016 Hypothyroid 06/06/2016 HLD (hyperlipidemia) 06/06/2016 Essential hypertension 01/12/2016 Hyperlipidemia with target LDL less than 100 01/12/2016 Hypothyroidism, unspecified hypothyroidism type 01/12/2016 Parkinson disease 01/12/2016 Arthritis 01/12/2016 Insomnia 01/12/2016 Depression 01/12/2016 documented as of this encounter (statuses as of 03/25/2019) Immunizations Name Administration Dates Next Due Influenza [...] Completed 02/16/2015 documented as of this encounter Procedures Procedure Name Priority Date/Time Associated Diagnosis Comments EXTERNAL PROVIDER Routine 03/25/2019 12:01 AM CDT RECORDS documented in this encounter Results Not on filedocumented in this encounter Insurance Payer Benefit Plan Subscriber ID Effective Phone Address Type / Group Dates AETNA - [employer] [id number] 2018-Pres [address] Medicare Adv MANAGED MEDICARE ADV ent [id number] [place] [address] MEDICARE MEDICARE PART xxxxxxxxxxx 2015-Pres [phone] Medicare A & B ent [id number] [place] [address] documented as of this encounter
[2019-04-04] MEDS ORDERED: NA CHLORIDE 0.9% 2,000 ML ONE (15:06)
[2019-04-04 15:27] LABS: Arterial Blood Carboxyhemoglob 0.7 % (0-1.5); Blood O2 Saturation 91.1 % (92-98.5)
[2019-04-04] MEDS ORDERED: NA CHLORIDE 0.9% 250 ML ONE ×2 (15:29→21:53)
[2019-04-04] MEDS ORDERED: AZITHROMYCIN 500 MG INJ IVPB ONE (15:29)
[2019-04-04] MEDS ORDERED: CEFTRIAXONE/SWI 1gm 2 GM/20 ML SYR ONE (15:29)
[2019-04-04 15:36] LABS: Absolute Lymphocytes (CBC) 1.4 K/uL (0.7-4.9); Basophils % 0.5 % (0-1.3); Hematocrit 49.5 % (36.0-45.0); Lymphocytes % 21.7 % (15.3-44.8); MPV 9.4 fL (7.6-11.3); RBC Red Blood Cell Count 5.26 M/uL (3.86-4.86)
[2019-04-04 15:43] LABS: Protime INR 1.11
[2019-04-04 16:02] LABS: ALT/SGPT 10 U/L (12-78); AST/SGOT 15 U/L (15-37); Albumin 3.6 g/dL (3.4-5.0); Alkaline Phosphatase 53 U/L (45-117); BUN Blood Urea Nitrogen 47 mg/dL (7-18); Bicarbonate 24 mmol/L (21-32); Bilirubin Direct 0.3 mg/dL (0-0.2); Bilirubin Total 0.9 mg/dL (0.2-1.0); CKMB Creatine Kinase MB < 1.0 ng/mL (0.3-3.6); Creatine Phosphokinase 58 U/L (26-192); Glucose Level 169 mg/dL (74-106); Lipase 469 U/L (73-393); Potassium 3.1 mmol/L (3.5-5.1); Sodium Level 158 mmol/L (136-145); Troponin (Emerg Dept Use Only) 0.03 ng/mL (0.0-0.045)
--- NOTE | 2019-04-04 16:14 | RAD REPORT ---
EXAM DESCRIPTION: RAD - Chest Single View - 04/04/2019 3:35 pm CLINICAL HISTORY: Shortness of breath COMPARISON: March 11, 2019 TECHNIQUE: AP portable chest image was obtained 1532 hour . FINDINGS: Hyper expanded lung musa again noted. Airspace opacification is present in the mid upper left lung field and in the left base. This is probably a large left upper lobe pneumonia extending i nto the lingula. Trachea is midline. Patient is rotated. Neurostimulator overlies the left chest. Heart and vasculature are normal. No measurable pleural effu aj and no pneumothorax. No acute bony abnormality seen. No acute aortic findings suspected. IMPRESSION: Large left upper lobe pneumonia.
[2019-04-04 16:25] LABS: Calcium Oxalate Crystals- Ur PRESENT (NONE SEEN); Urine Amorphous Sediment 1+ /HPF (NONE SEEN); Urine Bacteria 20-50 /HPF (<20); Urine Culture Reflex Order NOT NEEDED; Urine Mucus 4+ /HPF (NONE SEEN)
[2019-04-04] MEDS ORDERED: KCL 20 MEQ/100 mL IVPB 20 MEQ/100 ML BAG IV ONE (16:26)
[2019-04-04 16:27] LABS: Urine Blood 2+ (NEG); Urine Glucose NEGATIVE (NEG); Urine Protein 3+ (NEG); Urine Specific Gravity >1.030 (1.005-1.030); Urine pH 5.5 (5.0-7.0)
[2019-04-04] MEDS ORDERED: LEVALBUTEROL 1.25 MG/3 ML NEB ONE (16:38)
--- NOTE | 2019-04-04 16:59 | ER ---
Nurse's Notes [facility] Name: Rhona Muller Age: 64 yrs Sex: Female : 1955 Arrival Date: 04/04/2019 Time: 14:58 Bed 26 Private MD: Charles Raphael S Diagnosis: Pneumonia, unspecified organism;Dehydration Presentation: 04/04 15:08 Presenting complaint: family: She has trouble eating. She needs the whole day just to rv finish a cup of soup. Today, she started having difficulty breathing just this morning. Transition of care: patient was not received from another setting of care. Onset of symptoms was April 04, 2019 at 08:00. Risk Assessment: Do you want to hurt yourself or someone else? Patient reports no desire to harm self or others. Initial Sepsis Screen: Does the patient meet any 2 criteria? No. Patient's initial sepsis screen is negative. Does the patient have a suspected source of infection? No. Patient's initial sepsis screen is negative. Care prior to arrival: None. 15:08 Method Of Arrival: Wheelchair rv 15:08 Acuity: ROYER 2 rv Triage Assessment: 15:13 Respiratory: Reports shortness of breath at rest Onset: The symptoms/episode rv began/occurred this morning, the patient has severe shortness of breath. Historical: - Allergies: 15:11 Xylocaine; rv - Home Meds: 16:43 amitriptyline 10 mg Oral tab 1 tab daily [Active]; aspirin 81 mg Oral TbEC 1 tab once mg2 daily [Active]; Creon 24,000-76,000 -120,000 unit Oral cpDR 1 caps 3 times per day [Active]; entacapone 200 mg Oral tab 1 tab 2 times per day [Active]; docusate sodium 100 mg Oral cap 1 cap once daily [Active]; folic acid 1 mg Oral tab 1 tab twice a day [Active]; levothyroxine 50 mcg tab 1 tab once daily [Active]; lisinopril 10 mg Oral tab 1 tab once daily [Active]; meloxicam 15 mg Oral tab 1 tab once daily [Active]; metoprolol tartrate 25 mg Oral tab 1 tab 2 times per day [Active]; polyethylene glycol 3350 17 gram/dose Oral powd once daily [Active]; Restoril 7.5 mg Oral cap 2 caps once daily [Active]; rivastigimine patch 24 hour 1 patch daily [Active]; Sinemet 25-100 mg Oral tab 2 tabs daily [Active]; Sinemet 25-100 mg Oral tab 1 tab twice a day [Active]; - PMHx: 15:11 Anemia; cognitive communition deficit; cognitive impairment; Depression; DYSPHAGIA; rv GERD; Hyperlipidemia; Hypertension; Hypothyroidism; LACK OF COORDINATION; metabolic encephalopathy; MUSCLE WEAKNESS; Parkinsons; polyosteoarthritis; - PSHx: 15:11 Hysterectomy; Cholecystectomy; rv - Immunization history:: Adult Immunizations unknown. - Social history:: Smoking status: unknown. - Ebola Screening: : No symptoms or risks identified at this time. Screenin:13 Abuse screen: Denies threats or abuse. Denies injuries from another. Nutritional rv screening: No deficits noted. Tuberculosis screening: No symptoms or risk factors identified. Fall Risk None identified. Assessment: 15:11 General: Appears distressed, cachectic, Behavior is unresponsive. Pain: Unable to use rv pain scale. Patient is unresponsive. Neuro: Level of Consciousness is unresponsive, Oriented to none Reaction to noxious stimuli is withdrawal. Cardiovascular: Rhythm is sinus tachycardia. Respiratory: Airway is patent Respiratory effort is labored, shallow. GI: No signs and/or symptoms were reported involving the gastrointestinal system. : No signs and/or symptoms were reported regarding the genitourinary system. EENT: No signs and/or symptoms were reported regarding the EENT system. Derm: Skin is intact. Musculoskeletal: No signs and/or symptoms reported regarding the musculoskeletal system. 15:15 Respiratory: Breath sounds with wheezes bilaterally. mg2 19:30 Reassessment: ICU nurse will call me back to receive the report. mg2 Vital Signs: 15:10 BP 55 / 32; Pulse 136; Resp 32; Pulse Ox 78% ; Weight 36.29 kg; rv 15:30 BP 70 / 42; Pulse 120; Resp 30; Pulse Ox 79% on 15% Non-rebreather mask; mg2 16:14 BP 90 / 49; Pulse 97; Resp 16; Temp 100.6(R); Pulse Ox 98% on 50% BiPAP; mg2 16:41 BP 101 / 69; Pulse 98; Resp 18; Pulse Ox 100% on 50% BiPAP; mg2 17:38 BP 107 / 88; Pulse 114; Resp 28; Pulse Ox 100% on 50% BiPAP; mg2 18:07 BP 92 / 64; Pulse 109; Resp 25; Temp 98.7(R); Pulse Ox 98% on 50% BiPAP; mg2 18:49 BP 97 / 73; Pulse 106; Resp 25; Pulse Ox 100% on 50% BiPAP; mg2 19:03 BP 105 / 65; Pulse 106; Resp 23; Temp 98.5(R); Pulse Ox 100% on 50% BiPAP; mg2 [place] Coma Score: 19:02 Eye Response: to voice(3). Verbal Response: none(1). Motor Response: localizes pain(5). mg2 Total: 9. ED Course: 14:58 Patient arrived in ED. mr 14:58 Charles Raphael MD is Private Physician. mr 15:02 Vinny [facility] is [facility]. pm1 15:02 Zay Allen MD is Attending Physician. pm1 15:03 David Garcia, JOSE ALBERTO is Primary Nurse. mg2 15:10 Triage completed. rv 15:13 Arm band placed on left wrist. rv 15:13 Patient has correct armband on for positive identification. Placed in gown. Bed in low rv position. Call light in reach. Side rails up X2. Adult w/ patient. basting cleaner on. Pulse ox on. NIBP on. 15:15 Inserted saline lock: 20 gauge in right antecubital area, using aseptic technique. jp3 Blood collected. 15:15 Initial lab(s) drawn, by me, sent to lab. First set of blood cultures drawn by me. jp3 15:30 Second set of blood cultures drawn by ED staff, EKG done, by ED staff, reviewed by jp3 Vinny Arora NP. Inserted saline lock: 18 gauge in left antecubital area, using aseptic technique. Blood collected. 15:32 Warm blanket given. Verbal reassurance given. jp3 15:35 Chest Single View XRAY In Process Unspecified. EDMS 16:00 Jhaveri cath inserted, using sterile technique, 16 Fr., by ED staff, balloon inflated, to jp3 gravity drainage, urine specimen collected. returned casandra urine. Patient tolerated well. 16:15 No provider procedures requiring assistance completed. mg2 16:54 Yadira Wiley MD is Hospitalizing Provider. pm1 18:37 Repeat lab(s) drawn. by me, sent to lab. EKG done, by ED staff, reviewed by Vinny Arora NP. 18:55 Patient admitted, IV remains in place. mg2 Administered Medications: 15:40 Drug: Rocephin 2 grams Route: IV; Rate: calculated rate; Site: left antecubital; mg2 18:50 Follow up: Response: No adverse reaction; IV Status: Completed infusion mg2 15:40 Drug: AZITHromycin 500 mg Route: IVPB; Infused Over: 1 hrs; Site: left antecubital; mg2 18:50 Follow up: Response: No adverse reaction; IV Status: Completed infusion mg2 15:56 Drug: NS 0.9% (30 ml/kg) 30 ml/kg Route: IV; Rate: bolus; Site: left antecubital; mg2 18:51 Follow up: Response: No adverse reaction; IV Status: Completed infusion; IV Intake: mg2 2000ml 16:36 Drug: Potassium Chloride 20 mEq Route: IV; Rate: calculated rate; Site: right mg2 antecubital; 18:50 Follow up: Response: No adverse reaction; IV Status: Completed infusion mg2 16:47 Drug: Xopenex (3) 1.25 mg Route: Inhalation; mg2 18:50 Follow up: Response: No adverse reaction mg2 17:12 Drug: Tylenol Suppository 650 mg Route: [place]; mg2 18:04 Follow up: Response: No adverse reaction; Marked relief of symptoms; Temperature is mg2 decreased 17:56 Drug: Lactated Ringers Solution 1000 ml Route: IV; Rate: 100 ml/hr; Site: right mg2 antecubital; Point of Care Testing: Blood Glucose: 15:15 Blood Glucose: 172 mg/dL; mg2 Ranges: Intake: 18:51 IV: 2000ml; Total: 2000ml. mg2 Outcome: 16:56 Decision to Hospitalize by Provider. pm1 19:38 Admitted to ICU accompanied by nurse, accompanied by tech, via stretcher, room 8, with mg2 oxygen, on monitor, with chart, Report called to JOSE ALBERTO Duval 19:38 Condition: stable 19:38 Instructed on the need for admit, Demonstrated understanding of instructions. 20:05 Patient left the ED. mg2 Signatures: Dispatcher [employer] EDDE Viky Loya Patrick, [employer] pm1 David Garcia RN RN mg2 Ozzy Washington RN RN Chris Hussein jp3
--- NOTE | 2019-04-04 16:59 | EDPHYS ---
Physician Documentation [facility] Name: Rhona Muller Age: 64 yrs Sex: Female : 1955 Arrival Date: 04/04/2019 Time: 14:58 Bed 26 Private MD: Charles Raphael S ED Physician Zay Allen HPI: 04/04 15:26 This 64 yrs old Female presents to ER via Wheelchair with complaints of pm1 Decreased Appetite, Breathing Difficulty. 15:26 The patient has shortness of breath at rest. Onset: The symptoms/episode began/occurred pm1 1 week(s) ago. Duration: The symptoms are continuous, and are steadily getting worse. The patient's shortness of breath is aggravated by nothing, is alleviated by nothing. Associated signs and symptoms: Pertinent positives: decreased appetite for 1 week. Severity of symptoms: in the emergency department the symptoms are worse. Patient with decreased PO intake for one week. Patient had a barium swallow test 03/12/2019 and did not do well according to the . Patient has been too weak to get up and walk around for the past week. Shortness of breath ongoing for the past week but worse today. Historical: - Allergies: 15:11 Xylocaine; rv - Home Meds: 16:43 amitriptyline 10 mg Oral tab 1 tab daily [Active]; aspirin 81 mg Oral TbEC 1 tab once mg2 daily [Active]; Creon 24,000-76,000 -120,000 unit Oral cpDR 1 caps 3 times per day [Active]; entacapone 200 mg Oral tab 1 tab 2 times per day [Active]; docusate sodium 100 mg Oral cap 1 cap once daily [Active]; folic acid 1 mg Oral tab 1 tab twice a day [Active]; levothyroxine 50 mcg tab 1 tab once daily [Active]; lisinopril 10 mg Oral tab 1 tab once daily [Active]; meloxicam 15 mg Oral tab 1 tab once daily [Active]; metoprolol tartrate 25 mg Oral tab 1 tab 2 times per day [Active]; polyethylene glycol 3350 17 gram/dose Oral powd once daily [Active]; Restoril 7.5 mg Oral cap 2 caps once daily [Active]; rivastigimine patch 24 hour 1 patch daily [Active]; Sinemet 25-100 mg Oral tab 2 tabs daily [Active]; Sinemet 25-100 mg Oral tab 1 tab twice a day [Active]; - PMHx: 15:11 Anemia; cognitive communition deficit; cognitive impairment; Depression; DYSPHAGIA; rv GERD; Hyperlipidemia; Hypertension; Hypothyroidism; LACK OF COORDINATION; metabolic encephalopathy; MUSCLE WEAKNESS; Parkinsons; polyosteoarthritis; - PSHx: 15:11 Hysterectomy; Cholecystectomy; rv - Immunization history:: Adult Immunizations unknown. - Social history:: Smoking status: unknown. - Ebola Screening: : No symptoms or risks identified at this time. ROS: 15:26 Eyes: Negative for injury, pain, redness, and discharge, ENT: Negative for injury, pm1 pain, and discharge, Neck: Negative for injury, pain, and swelling, Cardiovascular: Negative for chest pain, palpitations, and edema. 15:26 Abdomen/GI: Negative for abdominal pain, nausea, vomiting, diarrhea, and constipation, Back: Negative for injury and pain, : Negative for injury, bleeding, discharge, and swelling, MS/Extremity: Negative for injury and deformity, Skin: Negative for injury, rash, and discoloration. 15:26 Constitutional: Positive for poor PO intake. 15:26 Respiratory: Positive for shortness of breath, at rest. 15:26 Neuro: Positive for generalized weakness. Exam: 15:26 Head/Face: Normocephalic, atraumatic. Eyes: Pupils equal round and reactive to light, pm1 extra-ocular motions intact. Lids and lashes normal. Conjunctiva and sclera are non-icteric and not injected. Cornea within normal limits. Periorbital areas with no swelling, redness, or edema. 15:26 ENT: Nares patent. No nasal discharge, no septal abnormalities noted. Tympanic membranes are normal and external auditory canals are clear. Oropharynx with no redness, swelling, or masses, exudates, or evidence of obstruction, uvula midline. Mucous membranes moist. Neck: Trachea midline, no thyromegaly or masses palpated, and no cervical lymphadenopathy. Supple, full range of motion without nuchal rigidity, or vertebral point tenderness. No Meningismus. Chest/axilla: Normal chest wall appearance and motion. Nontender with no deformity. No lesions are appreciated. Cardiovascular: Regular rate and rhythm with a normal S1 and S2. No gallops, murmurs, or rubs. Normal PMI, no JVD. No pulse deficits. 15:26 Abdomen/GI: Soft, non-tender, with normal bowel sounds. No distension or tympany. No guarding or rebound. No evidence of tenderness throughout. Back: No spinal tenderness. No costovertebral tenderness. Full range of motion. Skin: Warm, dry with normal turgor. Normal color with no rashes, no lesions, and no evidence of cellulitis. MS/ Extremity: Pulses equal, no cyanosis. Neurovascular intact. Full, normal range of motion. 15:26 Constitutional: The patient appears emaciated, obviously ill, Malodorous 15:26 Respiratory: Respirations: tachypnea, Breath sounds: bronchial sounds, are heard diffusely. Vital Signs: 15:10 BP 55 / 32; Pulse 136; Resp 32; Pulse Ox 78% ; Weight 36.29 kg; rv 15:30 BP 70 / 42; Pulse 120; Resp 30; Pulse Ox 79% on 15% Non-rebreather mask; mg2 16:14 BP 90 / 49; Pulse 97; Resp 16; Temp 100.6(R); Pulse Ox 98% on 50% BiPAP; mg2 16:41 BP 101 / 69; Pulse 98; Resp 18; Pulse Ox 100% on 50% BiPAP; mg2 17:38 BP 107 / 88; Pulse 114; Resp 28; Pulse Ox 100% on 50% BiPAP; mg2 18:07 BP 92 / 64; Pulse 109; Resp 25; Temp 98.7(R); Pulse Ox 98% on 50% BiPAP; mg2 18:49 BP 97 / 73; Pulse 106; Resp 25; Pulse Ox 100% on 50% BiPAP; mg2 19:03 BP 105 / 65; Pulse 106; Resp 23; Temp 98.5(R); Pulse Ox 100% on 50% BiPAP; mg2 [place] Coma Score: 19:02 Eye Response: to voice(3). Verbal Response: none(1). Motor Response: localizes pain(5). mg2 Total: 9. MDM: 15:03 Patient medically screened. pm1 16:36 Data reviewed: vital signs. pm1 16:51 Physician consultation: Yadira Wiley MD was called at 16:53, was contacted at 16:51, pm1 regarding admission, and will see patient in ED. 04/04 15:07 Order name: Urine Culture pm04/04 15:07 Order name: Basic Metabolic Panel; Complete Time: 16:09 pm1 04/04 15:07 Order name: Blood Culture Adult (2) pm04/04 15:07 Order name: CBC with Diff; Complete Time: 15:42 pm04/04 15:07 Order name: Ckmb; Complete Time: 16:09 pm04/04 15:07 Order name: CPK; Complete Time: 16:09 pm04/04 15:07 Order name: Lactate; Complete Time: 16:07 pm04/04 15:07 Order name: LFT's; Complete Time: 16:09 pm04/04 15:07 Order name: Lipase; Complete Time: 16:09 pm04/04 15:07 Order name: Procalcitonin; Complete Time: 16:32 pm04/04 15:07 Order name: Protime (+inr); Complete Time: 15:48 pm04/04 15:07 Order name: Ptt, Activated; Complete Time: 15:48 pm04/04 15:07 Order name: Troponin (emerg Dept Use Only); Complete Time: 16:09 pm04/04 15:07 Order name: Urine Microscopic Only; Complete Time: 16:30 pm04/04 15:07 Order name: Chest Single View XRAY; Complete Time: 16:30 pm04/04 15:07 Order name: Accucheck; Complete Time: 15:32 pm04/04 15:07 Order name: Cardiac monitoring; Complete Time: 15:33 pm04/04 15:07 Order name: EKG - Nurse/Tech; Complete Time: 15:33 pm04/04 15:07 Order name: IV Saline Lock - Large Bore; Complete Time: 15:33 pm04/04 15:12 Order name: ABG; Complete Time: 15:42 pm04/04 15:12 Order name: BIPAP pm04/04 16:02 Order name: Urine Dipstick--Ancillary (enter results); Complete Time: 16:30 sp 04/04 19:08 Order name: Lactate Sepsis 2 HR Follow-up; Complete Time: 19:13 EDMS 04/04 15:07 Order name: Labs collected and sent; Complete Time: 15:33 pm1 04/04 15:07 Order name: O2 Per Protocol; Complete Time: 15:33 pm1 04/04 15:07 Order name: O2 Sat Monitoring; Complete Time: 15:33 pm1 04/04 15:07 Order name: Urine Dipstick-Ancillary (obtain specimen); Complete Time: 16:36 pm1 Administered Medications: 15:40 Drug: Rocephin 2 grams Route: IV; Rate: calculated rate; Site: left antecubital; mg2 18:50 Follow up: Response: No adverse reaction; IV Status: Completed infusion mg2 15:40 Drug: AZITHromycin 500 mg Route: IVPB; Infused Over: 1 hrs; Site: left antecubital; mg2 18:50 Follow up: Response: No adverse reaction; IV Status: Completed infusion mg2 15:56 Drug: NS 0.9% (30 ml/kg) 30 ml/kg Route: IV; Rate: bolus; Site: left antecubital; mg2 18:51 Follow up: Response: No adverse reaction; IV Status: Completed infusion; IV Intake: mg2 2000ml 16:36 Drug: Potassium Chloride 20 mEq Route: IV; Rate: calculated rate; Site: right mg2 antecubital; 18:50 Follow up: Response: No adverse reaction; IV Status: Completed infusion mg2 16:47 Drug: Xopenex (3) 1.25 mg Route: Inhalation; mg2 18:50 Follow up: Response: No adverse reaction mg2 17:12 Drug: Tylenol Suppository 650 mg Route: [place]; mg2 18:04 Follow up: Response: No adverse reaction; Marked relief of symptoms; Temperature is mg2 decreased 17:56 Drug: Lactated Ringers Solution 1000 ml Route: IV; Rate: 100 ml/hr; Site: right mg2 antecubital; Point of Care Testing: Blood Glucose: 15:15 Blood Glucose: 172 mg/dL; mg2 Ranges: Critical Glucose Levels:Adult <50 mg/dl or >400 mg/dl <40 mg/dl or >180 mg/dl Disposition: 04/04/19 16:56 Hospitalization ordered by Yadira Wiley for Inpatient Admission. Preliminary diagnosis are Pneumonia, unspecified organism, Dehydration. - Bed requested for Intensive Care Unit. - Status is Inpatient Admission. mg2 - Condition is Stable. - Problem is new. - Symptoms have improved. UTI on Admission? No Addendum: 04/07/2019 08:24 Co-signature as Attending Physician, Zay Allen MD I agree with the assessment and c james plan of care. Signatures: Dispatcher [employer] EDMS Zay Allen MD MD cha Garcia, Cindy, RN RN cg Vinny Arora, BOTTLE HOUSE PUMPER BOTTLE HOUSE PUMPER pm1 David Garcia, RN RN mg2 Ozzy Washington, RN RN rv Corrections: (The following items were deleted from the chart) 04/04 16:59 16:56 Hospitalization Ordered by Yadira Wiley MD for Inpatient Admission. Preliminary pm1 diagnosis is Pneumonia, unspecified organism; Dehydration. Bed requested for Telemetry/MedSurg (Inpatient). Status is Inpatient Admission. Condition is Stable. Problem is new. Symptoms have improved. UTI on Admission? Yes. pm1 17:00 16:59 04/04/2019 16:56 Hospitalization Ordered by Yadira Wiley MD for Inpatient pm1 Admission. Preliminary diagnosis is Pneumonia, unspecified organism; Dehydration. Bed requested for Intensive Care Unit. Status is Inpatient Admission. Condition is Stable. Problem is new. Symptoms have improved. UTI on Admission? Yes. pm1 18:48 17:00 04/04/2019 16:56 Hospitalization Ordered by Yadira Wiley MD for Inpatient cg Admission. Preliminary diagnosis is Pneumonia, unspecified organism; Dehydration. Bed requested for Intensive Care Unit. Status is Inpatient Admission. Condition is Stable. Problem is new. Symptoms have improved. UTI on Admission? No. pm1 20:05 18:48 04/04/2019 16:56 Hospitalization Ordered by Yadira Wiley MD for Inpatient mg2 Admission. Preliminary diagnosis is Pneumonia, unspecified organism; Dehydration. Bed requested for Intensive Care Unit. Status is Inpatient Admission. Condition is Stable. Problem is new. Symptoms have improved. UTI on Admission? No. cg
[2019-04-04] MEDS ORDERED: ACETAMINOPHEN 650MG/RECT SUPP PR ONE (17:07)
[2019-04-04] MEDS ORDERED: Ringers Lactate 1,000 ML IV ONE (17:56)
--- NOTE | 2019-04-04 19:36 | P.HP ---
Certification for Inpatient Patient admitted to: Inpatient With expected LOS: >2 Midnights Practitioner: I am a practitioner with admitting privileges, knowledge of patient current condition, hospital course, and medical plan of care. Services: Services provided to patient in accordance with Admission requirements found in Title 42 Section 412.3 of the Code of Federal Regulations Patient History Date of Service: 04/04/19 Primary Care Provider: Dr. Raphael Reason for admission: Shortness of breath History of Present Illness: This is a 64-year-old female with significant past medical history of Parkinson' s, hyperlipidemia, hypertension and respiratory insufficiency secondary to Parkinson's disease, dysphagia secondary to Parkinson's disease who presents to the ED complaining of having difficulty breathing. Patient's at bedside states that she was recently discharged from our hospital at the beginning of this month. She was doing well until about a week ago, when she started having decreased appetite and increasing shortness of breath he also states that she stopped ambulating as much about a week ago as well. Patient has generalized weakness as well as dysphasia secondary to Parkinson's disease. Patient denies having any fever chills nausea vomiting or any other associated symptoms at this time. She was then brought to the hospital via has been. In the ER, her blood pressure was 55/32, heart rate of 136, 78% on room air. All of this improved with IV fluids and supportive care. Her blood pressure improved to 101/69, heart rate improved to 98, and she was doing well on BiPAP, satting 100%. Her labs were remarkable for sodium elevated at 158, potassium low at 3.1, creatinine elevated at 1.81, lactic acid elevated at 11.3 which improved to 10 after IV fluids. Her propranolol was also elevated to 526. Her chest x-ray showed left upper lobe pneumonia. Her blood gases showed hypoxemia. At the time of my exam, patient was on BiPAP, seemed to be in mild to moderate distress, did not speak to me. Her blood pressure and vital signs and improved She was admitted to the ICU for further evaluation management Allergies lidocaine [From Xylocaine] Allergy (Verified 03/11/19 16:03) Hives Home medications list reviewed: Yes Home Medications: Amitriptyline HCl 1 tab PO DAILY 03/11/19 Ascorbic Acid [Vitamin C*] 500 mg PO DAILY 03/11/19 Aspirin [Aspir-Low] 1 tab PO DAILY 03/11/19 Atorvastatin Calcium 10 mg PO DAILY 03/11/19 Carbidopa/Levodopa [Carbidopa-Levodopa 25-100 Tab] 1 tab PO QID 03/11/19 Creon Solution 6,000 units PO TIDWM 03/11/19 Entacapone 1 tab PO QID 03/11/19 Estradiol [Estrace] 1 tab PO DAILY 03/11/19 Ferrous Sulfate [Ferrous Sulfate*] 1 tab PO DAILY 03/11/19 Folic Acid 1 tab PO BID 03/11/19 Levothyroxine [Synthroid*] 50 mcg PO DAILY 03/11/19 Lisinopril 1 tab PO DAILY 03/11/19 Melatonin 10 mg PO BEDTIME 03/11/19 Meloxicam 1 tab PO DAILY 03/11/19 Metoprolol Succinate [Toprol Xl*] 25 mg PO BID 03/11/19 Nuedexta 10 mg PO Q12H 03/11/19 Rivastigmine 13.3 mg TOP DAILY 03/11/19 Sennosides 8.6 mg PO DAILY 03/11/19 Temazepam 1 cap PO DAILYPRN PRN 03/11/19 Zinc 50 mg PO DAILY 03/11/19 - Past Medical/Surgical History Diabetic: No -: Anemia -: Cognitive communication deficit -: cognitive impairment -: depression -: dysphagia -: gerd -: hyperlipidemia -: htn -: hypothyroidism -: encephalopathy -: muscle weakness -: parkinson's -: nerve stimulator for parkinson's Psychosocial/ Personal History: Lives with the at home, takes care of her - Social History Alcohol use: No CD- Drugs: No Caffeine use: No Review of Systems 10-point ROS is otherwise unremarkable Physical Examination - Physical Exam General: Oriented x1, Cachectic, Demented, Mild distress, Moderate distress HEENT: Atraumatic, PERRLA, Mucous membr. moist/pink, EOMI, Sclerae nonicteric Neck: Supple, 2+ carotid pulse no bruit, No LAD, Without JVD or thyroid abnormality Respiratory: Dull, Crackles/rales, Expiratory wheezes Cardiovascular: Regular rate/rhythm, Normal S1 S2 Capillary refill: >2 Seconds Gastrointestinal: Normal bowel sounds, No tenderness Musculoskeletal: No tenderness Integumentary: No rashes Neurological: Abnormal speech, Abnormal tone, Abnormal affect, Dementia Lymphatics: No axilla or inguinal lymphadenopathy - Studies Laboratory Data (last 24 hrs) 04/04/19 15:15: PT 13.0 H, INR 1.11, APTT 24.3 04/04/19 15:15: WBC 6.3, Hgb 15.8 H, Hct 49.5 H, Plt Count 339 04/04/19 15:15: Sodium 158 H, Potassium 3.1 L, BUN 47 H, Creatinine 1.81 H, Glucose 169 H, Total Bilirubin 0.9, AST 15, ALT 10 L, Alkaline Phosphatase 53, Lipase 469 H Assessment and Plan - Problems (Diagnosis) (1) Septic shock Current Visit: Yes Status: Acute Plan: Hypotensive, end-organ damage, elevated lactic acidosis, source would be here pneumonia. -Admit to ICU and continue to monitor vital signs. -If blood pressure continues to remain low, patient may need pressor -Continue antibiotics with Rocephin and azithromycin -continue IV fluids (2) Acute respiratory failure Current Visit: No Status: Resolved Plan: most likely secondary to hypercapnia secondary to Parkinson's disease versus pneumonia -currently started on BiPAP will wean as tolerated -duo nebs, steroids -continue IV antibiotics -will consult pulmonology, if needed -will monitor patient closely here in the hospital Qualifiers: Respiratory failure complication: hypoxia Qualified Code(s): J96.01 - Acute respiratory failure with hypoxia (3) Dysphagia Current Visit: No Status: Chronic Plan: Likely secondary to advanced Parkinson's -patient with overflow failed recent modified barium swallow study. -will keep NPO and get speech evaluation -though will have a conversation with the and patient regarding further goals of care as patient may always be an increased risk for aspiration and aspiration pneumonia due to the dysphagia Qualifiers: Dysphagia type: unspecified Qualified Code(s): R13.10 - Dysphagia, unspecified (4) Chronic GERD Current Visit: No Status: Chronic Plan: Restart home medication (5) Parkinsons disease Current Visit: No Status: Acute Plan: Parkinson's disease with chronic dementia, dysphagia, respiratory insufficiency and declining mentation now -will monitor closely -will consult PT/OT and Speech. (6) Hypertension Current Visit: No Status: Chronic Plan: Hold due to hypotension. Will restart once tolerating Qualifiers: Hypertension type: essential hypertension Qualified Code(s): I10 - Essential (primary) hypertension (7) Hypothyroidism Current Visit: No Status: Chronic Qualifiers: Hypothyroidism type: acquired Qualified Code(s): E03.9 - Hypothyroidism, unspecified - Plan DVT prophylaxis: Lovenox GI prophylaxis: Protonix Diet: NPO Disposition: Admit to ICU, monitor via tele. Continue to monitor vital signs Discharge Plan: Home Plan to discharge in: Greater than 2 days - Advance Directives Does patient have a Living Will: No Does patient have a Durable POA for Healthcare: No Critical Care: Yes Time Spent Managing Pts Care (In Minutes): 65
[2019-04-04] MEDS ORDERED: Levofloxacin500mg IV 500 MG/100 ML BAG IV ONE (20:08)
[2019-04-04] MEDS ORDERED: VANCOMYCIN 1.25 GM in NA CHLORIDE 0.9% 250 ML IVPB SCH (20:08)
[2019-04-04] MEDS ORDERED: ONDANSETRON 4 MG/2 ML VIAL IV PRN (20:08)
[2019-04-04] MEDS ORDERED: NA CHLORIDE 0.9% 1,000 ML ONE (20:10)
[2019-04-04] MEDS: NA CHLORIDE 0.9% 1,000 ML IV SCH (20:30)
[2019-04-04] MEDS ORDERED: CEFTRIAXONE 1 GM/NS 50 ML 1 GM/50 ML BAG IV SCH (21:00)
[2019-04-04] MEDS ORDERED: VANCOMYCIN 1 GM/VIAL ONE (21:52)
[2019-04-04] MEDS ORDERED: VANCOMYCIN 750 MG in NA CHLORIDE 0.9% 150 ML IVPB SCH (23:00)
[2019-04-05] MEDS: IPRATROPIUM BROM 0.5MG/2.5ML NEB SCH ×4 (02:36→20:00)
[2019-04-05] MEDS: ALBUTEROL 2.5 MG/3 ML NEB SOL NEB SCH ×4 (02:36→20:00)
[2019-04-05 06:38] LABS: Hematocrit 39.2 % (36.0-45.0); MPV 9.7 fL (7.6-11.3); RBC Red Blood Cell Count 4.29 M/uL (3.86-4.86)
[2019-04-05 06:39] LABS: Absolute Lymphocytes (CBC) 1.3 K/uL (0.7-4.9); Basophils % 0.2 % (0-1.3); Lymphocytes % 10.2 % (15.3-44.8)
[2019-04-05 06:57] LABS: Albumin 2.8 g/dL (3.4-5.0); Bilirubin Total 0.5 mg/dL (0.2-1.0); Potassium 3.5 mmol/L (3.5-5.1); Protein, Total 6.5 g/dL (6.4-8.2)
[2019-04-05 08:03] LABS: Blood Morphology Comment NOT SEEN (NOT SEEN); Platelet Estimate ADEQ
[2019-04-05] MEDS: CEFTRIAXONE/SWI 1gm 1 GM/10 ML SYR IVP SCH ×2 (08:56→20:41)
[2019-04-05] MEDS: NA CHLORIDE 0.9% 1,000 ML IV SCH (08:57)
--- NOTE | 2019-04-05 10:41 | EKG ---
Test Date: 2019-04-04 Test Time: 18:10:22 Retail Cashier: MG MEASUREMENT RESULTS: Intervals: Rate: 109 NM: 130 QRSD: 66 QT: 340 QTc: 457 [place]: P: 88 NM: 130 QRS: 78 T: -65 INTERPRETIVE STATEMENTS: Sinus tachycardia Right atrial enlargement Anteroseptal infarct, age undetermined Marked ST abnormality, possible inferior subendocardial injury Abnormal ECG Compared to ECG 03/11/2019 14:05:00 Atrial abnormality now present Sinus rhythm no longer present Myocardial infarct finding still present ST (T wave) deviation still present Electronically Signed On 04-05-19 10:40:49 CDT by Clayton Das
--- NOTE | 2019-04-05 10:43 | EKG ---
Test Date: 2019-04-04 Test Time: 15:25:42 Phys Asst: MEASUREMENT RESULTS: Intervals: Rate: 111 NM: 112 QRSD: 80 QT: 386 QTc: 524 [place]: P: 91 NM: 112 QRS: 80 T: 158 INTERPRETIVE STATEMENTS: Sinus tachycardia Right atrial enlargement Anteroseptal infarct, age undetermined Marked ST abnormality, possible inferior subendocardial injury Prolonged QT Abnormal ECG Compared to ECG 03/11/2019 14:05:00 Atrial abnormality now present Prolonged QT interval now present Sinus rhythm no longer present Myocardial infarct finding still present ST (T wave) deviation still present Electronically Signed On 04-05-19 10:43:09 CDT by Clayton Das
--- NOTE | 2019-04-05 11:34 | RAD REPORT ---
EXAM DESCRIPTION: RAD - Chest Single View - 04/05/2019 6:22 am CLINICAL HISTORY: PNA Chest pain. COMPARISON: Chest Single View dated 04/04/2019; Chest Single View dated 03/11/2019 FINDINGS: Portable technique limits examination quality. Since 04/04/2019, slight progression in left-sided pneumonia pattern is suspected. The heart is gricelda l in size. Stimulator device noted on the left. IMPRESSION: Subtle worsening in lung aeration on the left since 04/04/2019.
[2019-04-05] MEDS: D5LR 1,000 ML IV SCH (13:39)
--- NOTE | 2019-04-05 13:49 | P.PN ---
Subjective Date of Service: 04/05/19 Primary Care Provider: Dr. Raphael Chief Complaint: Shortness of breath Subjective: No new changes Patient seen and examined at bedside. at bedside. Chart reviewed and case discussed with nursing staff. In no acute events noted overnight No changes Continues to be on BiPAP Review of Systems 10-point ROS is otherwise unremarkable Physical Examination - Vital Signs Temperature: 98.1 F Blood Pressure: 100/63 Pulse: 93 Respirations: 19 Pulse Ox (%): 98 - Physical Exam General: In no apparent distress, Cachectic, Confused HEENT: Atraumatic, PERRLA, EOMI Neck: Supple, JVD not distended Respiratory: Diminished, Dull, Crackles/rales Cardiovascular: Regular rate/rhythm, Normal S1 S2 Gastrointestinal: Normal bowel sounds, No tenderness Musculoskeletal: No tenderness - Studies Laboratory Data (last 24 hrs) 04/04/19 15:15: PT 13.0 H, INR 1.11, APTT 24.3 04/04/19 15:15: WBC 6.3, Hgb 15.8 H, Hct 49.5 H, Plt Count 339 04/04/19 15:15: Sodium 158 H, Potassium 3.1 L, BUN 47 H, Creatinine 1.81 H, Glucose 169 H, Total Bilirubin 0.9, AST 15, ALT 10 L, Alkaline Phosphatase 53, Lipase 469 H Assessment And Plan - Current Problems (Diagnosis) (1) Septic shock Current Visit: Yes Status: Acute Plan: Hypotensive, end-organ damage, elevated lactic acidosis, source would be here pneumonia and UTI. Improving -continue to monitor vital signs. -If blood pressure continues to remain low, patient may need pressor -Continue antibiotics with Rocephin and azithromycin -continue IV fluids (2) Acute respiratory failure Current Visit: No Status: Resolved Plan: most likely secondary to hypercapnia secondary to Parkinson's disease versus pneumonia -currently started on BiPAP will wean as tolerated -duo nebs, steroids -continue IV antibiotics -will consult pulmonology, if needed -will monitor patient closely here in the hospital Qualifiers: Respiratory failure complication: hypoxia Qualified Code(s): J96.01 - Acute respiratory failure with hypoxia (3) Dysphagia Current Visit: No Status: Chronic Plan: Likely secondary to advanced Parkinson's -patient with overflow failed recent modified barium swallow study. -will keep NPO and get speech evaluation -though will have a conversation with the and patient regarding further goals of care as patient may always be an increased risk for aspiration and aspiration pneumonia due to the Parkinson's disease Qualifiers: Dysphagia type: unspecified Qualified Code(s): R13.10 - Dysphagia, unspecified (4) Chronic GERD Current Visit: No Status: Chronic Plan: Restart home medication (5) Parkinsons disease Current Visit: No Status: Acute Plan: Parkinson's disease with chronic dementia, dysphagia, respiratory insufficiency and declining mentation now -will monitor closely -will consult PT/OT and Speech. (6) Hypertension Current Visit: No Status: Chronic Plan: Hold due to hypotension. Will restart once tolerating Qualifiers: Hypertension type: essential hypertension Qualified Code(s): I10 - Essential (primary) hypertension (7) Hypothyroidism Current Visit: No Status: Chronic Qualifiers: Hypothyroidism type: acquired Qualified Code(s): E03.9 - Hypothyroidism, unspecified (8) Hypernatremia Current Visit: Yes Status: Acute Plan: Likely secondary dehydration, decreased intake. -IV fluids adjusted, continue to monitor. - Plan DVT prophylaxis: Lovenox GI prophylaxis: Protonix Diet: NPO Disposition: Admit to ICU, monitor via tele. Continue to monitor vital signs - Code Status/Comfort Care Code Status Assessed: Yes Code Status: Do Not Attempt Resuscitat Critical Care: Yes
[2019-04-05] MEDS ORDERED: VANCOMYCIN 750 MG in NA CHLORIDE 0.9% 150 ML IVPB SCH (23:00)
[2019-04-06] MEDS: IPRATROPIUM BROM 0.5MG/2.5ML NEB SCH ×4 (02:00→20:00)
[2019-04-06] MEDS: ALBUTEROL 2.5 MG/3 ML NEB SOL NEB SCH ×4 (02:00→20:00)
[2019-04-06] MEDS: D5LR 1,000 ML IV SCH ×4 (03:24→20:25)
[2019-04-06 05:40] LABS: Absolute Lymphocytes (CBC) 1.3 K/uL (0.7-4.9); Basophils % 0.1 % (0-1.3); Hematocrit 37.4 % (36.0-45.0); Lymphocytes % 10.8 % (15.3-44.8); MPV 10.2 fL (7.6-11.3); RBC Red Blood Cell Count 4.07 M/uL (3.86-4.86)
[2019-04-06 06:08] LABS: ALT/SGPT 9 U/L (12-78); AST/SGOT 18 U/L (15-37); Albumin 2.7 g/dL (3.4-5.0); Alkaline Phosphatase 63 U/L (45-117); BUN Blood Urea Nitrogen 23 mg/dL (7-18); Bicarbonate 28 mmol/L (21-32); Bilirubin Total 0.3 mg/dL (0.2-1.0); Glucose Level 141 mg/dL (74-106)
[2019-04-06 06:09] LABS: Potassium 2.9 mmol/L (3.5-5.1); Sodium Level 164 mmol/L (136-145)
[2019-04-06] MEDS: KCL 20 MEQ/100 mL IVPB 20 MEQ/100 ML BAG IV SCH ×5 (06:28→20:25)
[2019-04-06] MEDS: CEFTRIAXONE/SWI 1gm 1 GM/10 ML SYR IVP SCH (08:14)
[2019-04-06] MEDS ORDERED: DOCUSATE NA 100 MG CAP PO PRN (15:13)
--- NOTE | 2019-04-06 15:38 | P.PN ---
Subjective Date of Service: 04/06/19 Primary Care Provider: Dr. Raphael Chief Complaint: Shortness of breath Pt seen and examined at bedside. Chart Reviewed. Case DW with Pulmonology. Speech Therapy Reccs MBS. Currently sleeping. No events overnight Review of Systems 10-point ROS is otherwise unremarkable Physical Examination - Vital Signs Temperature: 98.0 F Blood Pressure: 135/64 Pulse: 101 Respirations: 17 Pulse Ox (%): 99 - Physical Exam General: Alert, In no apparent distress, Demented Respiratory: Normal air movement, Expiratory wheezes, Inspiratory wheezes Cardiovascular: Regular rate/rhythm, Normal S1 S2 Gastrointestinal: Normal bowel sounds, No tenderness Musculoskeletal: No tenderness Integumentary: No rashes Neurological: Normal tone, Normal affect, Abnormal speech, Abnormal strength Lymphatics: No axilla or inguinal lymphadenopathy - Studies Microbiology Data (last 24 hrs): 04/04/19 15:55 Catheterized Urine [place] Count - Final >100,000 CFU/ML. 04/04/19 15:55 Catheterized Urine - Final Escherichia Coli Medications List Reviewed: Yes Assessment And Plan - Current Problems (Diagnosis) (1) Acute respiratory failure Current Visit: No Status: Resolved Plan: most likely secondary to hypercapnia secondary to Parkinson's disease versus pneumonia -currently off the BIPAP -duo nebs, steroids and oxygen for now -Switched Abx to zosyn now -will monitor patient closely here in the hospital Qualifiers: Respiratory failure complication: hypoxia Qualified Code(s): J96.01 - Acute respiratory failure with hypoxia (2) Septic shock Current Visit: Yes Status: Acute Plan: Pt with Septic Shock Initially. Now resolved. -Initially with Hypertension, end-organ damage, elevated lactic acidosis. NO resolved -continue to monitor vital signs. -Switched to IV zosyn for now -continue IV fluids (3) PNA (pneumonia) Current Visit: Yes Status: Acute Plan: Pt with AMEYA PNA most likely aspiration given PD and Dysphagia -Sputum Culture pending -On IV zosyn for now -Will monitor -Speech Consulted. Reccs MBS scheduled for today Qualifiers: Pneumonia type: aspiration pneumonia Aspiration pneumonia type: due to regurgitated food Laterality: left Lung location: lower lobe of lung Qualified Code(s): J69.0 - Pneumonitis due to inhalation of food and vomit (4) Dysphagia Current Visit: No Status: Chronic Plan: Likely secondary to advanced Parkinson's -patient scheduled for modified barium swallow study. -will keep NPO and get speech evaluation -Detailed conversation with the and patient regarding further goals of care as patient may always be an increased risk for aspiration & aspiration pneumonia due to the Parkinson's disease Qualifiers: Dysphagia type: unspecified Qualified Code(s): R13.10 - Dysphagia, unspecified (5) Hypertension Current Visit: No Status: Chronic Qualifiers: Hypertension type: essential hypertension Qualified Code(s): I10 - Essential (primary) hypertension (6) Hypothyroidism Current Visit: No Status: Chronic Qualifiers: Hypothyroidism type: acquired Qualified Code(s): E03.9 - Hypothyroidism, unspecified (7) Parkinsons disease Current Visit: No Status: Chronic - Plan DVT prophylaxis: Lovenox GI prophylaxis: Protonix Diet: NPO Disposition: MBS today and transfer to the floor now Discharge Plan: Home Plan to discharge in: Greater than 2 days - Code Status/Comfort Care Code Status Assessed: Yes Critical Care: Yes
[2019-04-06] MEDS ORDERED: KCL 20 MEQ/100 mL IVPB 20 MEQ/100 ML BAG IV ONE (15:50)
[2019-04-06] MEDS: PIPER/TAZO/NS 3.375gm 3.375 GM/100 ML BAG IVPB SCH (16:57)
[2019-04-07] MEDS: PIPER/TAZO/NS 3.375gm 3.375 GM/100 ML BAG IVPB SCH ×2 (00:54→08:18)
[2019-04-07] MEDS: ALBUTEROL 2.5 MG/3 ML NEB SOL NEB SCH ×3 (02:00→14:08)
[2019-04-07] MEDS: IPRATROPIUM BROM 0.5MG/2.5ML NEB SCH ×3 (02:00→14:08)
[2019-04-07] MEDS: KCL 20 MEQ/100 mL IVPB 20 MEQ/100 ML BAG IV SCH ×2 (03:29→06:17)
[2019-04-07] MEDS: D5LR 1,000 ML IV SCH (05:00)
[2019-04-07 06:34] LABS: Absolute Lymphocytes (CBC) 1.1 K/uL (0.7-4.9); Basophils % 0.2 % (0-1.3); Hematocrit 27.9 % (36.0-45.0); Lymphocytes % 13.3 % (15.3-44.8); MPV 9.7 fL (7.6-11.3); RBC Red Blood Cell Count 3.05 M/uL (3.86-4.86)
[2019-04-07 07:03] LABS: ALT/SGPT 8 U/L (12-78); AST/SGOT 14 U/L (15-37); Albumin 2.2 g/dL (3.4-5.0); Alkaline Phosphatase 44 U/L (45-117); BUN Blood Urea Nitrogen 17 mg/dL (7-18); Bicarbonate 28 mmol/L (21-32); Bilirubin Total 0.3 mg/dL (0.2-1.0); Glucose Level 127 mg/dL (74-106); Magnesium 2.2 mg/dL (1.8-2.4); Phosphorus 1.1 mg/dL (2.5-4.9); Potassium 3.5 mmol/L (3.5-5.1); Protein, Total 4.9 g/dL (6.4-8.2)
[2019-04-07 07:08] LABS: Sodium Level 166 mmol/L (136-145)
[2019-04-07] MEDS ORDERED: POTASSIUM PHOS IN 0.9 % NACL 15 MMOL/250 ML BAG IV ONE (07:17)
[2019-04-07] MEDS ORDERED: NUEDEXTA PO SCH (11:00)
[2019-04-07] MEDS ORDERED: METOPROLOL XL 25 MG TAB PO SCH ×3 (11:00→21:00)
--- NOTE | 2019-04-07 12:25 | RAD REPORT ---
EXAM DESCRIPTION: RAD - Barium Swallow Modified - 04/07/2019 12:09 pm CLINICAL HISTORY: Dysphagia COMPARISON: Barium Swallow Modified dated 03/12/2019 TECHNIQUE: The patient was given liquid, semi-solid and solid forms of barium. Lateral view fluorosc opic imaging was performed in conjunction with speech pathology service. FINDINGS: Laryngeal penetration with nectar, not cleared Aspiration with thin by straw, thin residue in the airway that was pulled down below the vocal cords by way of gravity Pharyngeal residue: vallecular - severe with puree, pyriform - severe with puree Total fluoroscopy time: 8 minutes and 43 seconds.
[2019-04-07] MEDS ORDERED: CARBIDOPA/LEVODOPA 25/100 TAB PO SCH (13:00)
[2019-04-07] MEDS ORDERED: ENTACAPONE 200 MG TAB PO SCH (13:00)
[2019-04-07] MEDS ORDERED: CREON 6000 UNIT PO SCH (14:00)
--- NOTE | 2019-04-07 14:05 | P.DS ---
Admission Date: 04/04/19 Discharge Date: 04/07/19 Primary Care Provider: Dr. Raphael Disposition: HOSPICE-MEDICAL FACILITY Discharge Condition: FAIR Reason for Admission: Shortness of breath - Problems (1) Acute respiratory failure Current Visit: No Status: Resolved Qualifiers: Respiratory failure complication: hypoxia Qualified Code(s): J96.01 - Acute respiratory failure with hypoxia (2) Septic shock Current Visit: Yes Status: Acute (3) PNA (pneumonia) Current Visit: Yes Status: Acute Qualifiers: Pneumonia type: aspiration pneumonia Aspiration pneumonia type: due to regurgitated food Laterality: left Lung location: lower lobe of lung Qualified Code(s): J69.0 - Pneumonitis due to inhalation of food and vomit (4) Dysphagia Current Visit: No Status: Chronic Qualifiers: Dysphagia type: unspecified Qualified Code(s): R13.10 - Dysphagia, unspecified (5) Hypertension Current Visit: No Status: Chronic Qualifiers: Hypertension type: essential hypertension Qualified Code(s): I10 - Essential (primary) hypertension (6) Hypothyroidism Current Visit: No Status: Chronic Qualifiers: Hypothyroidism type: acquired Qualified Code(s): E03.9 - Hypothyroidism, unspecified (7) Parkinsons disease Current Visit: No Status: Chronic Brief History of Present Illness: This is a 64-year-old female with significant past medical history of Parkinson' s, hyperlipidemia, hypertension and respiratory insufficiency secondary to Parkinson's disease, dysphagia secondary to Parkinson's disease who presents to the ED complaining of having difficulty breathing. Patient's at bedside states that she was recently discharged from our hospital at the beginning of this month. She was doing well until about a week ago, when she started having decreased appetite and increasing shortness of breath he also states that she stopped ambulating as much about a week ago as well. Patient has generalized weakness as well as dysphasia secondary to Parkinson's disease. Patient denies having any fever chills nausea vomiting or any other associated symptoms at this time. She was then brought to the hospital via has been. In the ER, her blood pressure was 55/32, heart rate of 136, 78% on room air. All of this improved with IV fluids and supportive care. Her blood pressure improved to 101/69, heart rate improved to 98, and she was doing well on BiPAP, satting 100%. Her labs were remarkable for sodium elevated at 158, potassium low at 3.1, creatinine elevated at 1.81, lactic acid elevated at 11.3 which improved to 10 after IV fluids. Her propranolol was also elevated to 526. Her chest x-ray showed left upper lobe pneumonia. Her blood gases showed hypoxemia. At the time of my exam, patient was on BiPAP, seemed to be in mild to moderate distress, did not speak to me. Her blood pressure and vital signs and improved She was admitted to the ICU for further evaluation management Hospital Course: Overall during the hospital stay patient remained stable. However condition was progressively declining due to a terminal illness. Patient was initially admitted to the hospital for pneumonia in the left upper lobe most likely secondary to dysphagia caused by a Parkinson's disease. Patient was started on antibiotics here in the hospital. Not have any improvement while here as well. Patient was also found to have hypernatremia while here in the hospital. It looked like patient was getting into metabolic acidosis due to with a chronic condition along with non resolving left low upper lobe pneumonia. At that time the due till discussion was done with the family member at bedside. Her who opted for hospice care. Patient's family chose [facility] since patient was transitioned over to inpatient hospice with [facility]. Vital Signs/Physical Exam: Temp Pulse Resp BP Pulse Ox 97.6 F 80 16 127/67 98 04/07/19 12:00 04/07/19 12:00 04/07/19 12:00 04/07/19 12:00 04/07/19 12:00 General: In no apparent distress, Disheveled, Demented, Confused Respiratory: Normal air movement, Expiratory wheezes, Inspiratory wheezes Cardiovascular: Regular rate/rhythm, Normal S1 S2 Gastrointestinal: Normal bowel sounds, No tenderness Musculoskeletal: No tenderness Integumentary: No rashes Neurological: Normal speech, Normal tone, Normal affect Lymphatics: No axilla or inguinal lymphadenopathy Laboratory Data at Discharge: WBC 8.3 K/uL (4.3-10.9) D 04/07/19 06:09 Hgb 9.3 g/dL (12.0-15.0) L D 04/07/19 06:09 Hct 27.9 % (36.0-45.0) L D 04/07/19 06:09 Plt Count 155 K/uL (152-406) 04/07/19 06:09 PT 13.0 SECONDS (9.5-12.5) H 04/04/19 15:15 INR 1.11 04/04/19 15:15 APTT 24.3 SECONDS (24.3-36.9) 04/04/19 15:15 Sodium 166 mmol/L (136-145) H* 04/07/19 06:09 Potassium 3.5 mmol/L (3.5-5.1) 04/07/19 06:09 BUN 17 mg/dL (7-18) 04/07/19 06:09 Creatinine 0.45 mg/dL (0.55-1.3) L 04/07/19 06:09 Glucose 127 mg/dL (74-106) H 04/07/19 06:09 Phosphorus 1.1 mg/dL (2.5-4.9) L 04/07/19 06:09 Magnesium 2.2 mg/dL (1.8-2.4) 04/07/19 06:09 Total Bilirubin 0.3 mg/dL (0.2-1.0) 04/07/19 06:09 AST 14 U/L (15-37) L 04/07/19 06:09 ALT 8 U/L (12-78) L 04/07/19 06:09 Alkaline Phosphatase 44 U/L (45-117) L 04/07/19 06:09 Lipase 469 U/L (73-393) H 04/04/19 15:15 Home Medications: Amitriptyline HCl 1 tab PO BEDTIME 03/11/19 Aspirin [Aspir-Low] 1 tab PO DAILY 03/11/19 Atorvastatin Calcium 10 mg PO BEDTIME 03/11/19 Carbidopa/Levodopa [Carbidopa-Levodopa 25-100 Tab] 1 tab PO QID 03/11/19 Entacapone 1 tab PO QID 03/11/19 Estradiol [Estrace] 1 tab PO DAILY 03/11/19 Folic Acid 1 tab PO BID 03/11/19 Levothyroxine [Synthroid*] 50 mcg PO DAILY 03/11/19 Lisinopril 1 tab PO DAILY 03/11/19 Meloxicam 1 tab PO DAILY 03/11/19 Rivastigmine 13.3 mg TOP DAILY 03/11/19 Sennosides 8.6 mg PO DAILY 03/11/19 Temazepam 1 cap PO DAILYPRN PRN 03/11/19 Zinc 50 mg PO DAILY 03/11/19 Ascorbic Acid [Vitamin C with Amanda Hips] 1 tab PO DAILY 04/04/19 Creon 6000 Units 2 tab PO TID 04/04/19 Iron 65mg Ferrous Sulfate 325mg 1 tab PO DAILY 04/04/19 Melatonin/[place] Extr [Hm Melatonin-[place] Tablet] 1 tab PO BEDTIME 04/04/19 Nuedexta 20-10mg 1 cap PO Q12H 04/04/19 Metoprolol Succinate 25 mg PO Q12H 04/05/19 Metoprolol Succinate 50 mg PO SEECOM 04/05/19
[2019-04-07] MEDS ORDERED: FOLIC ACID 1 MG TABLET PO SCH (21:00)
[2019-04-07] MEDS ORDERED: AMITRIPTYLINE 10 MG TAB PO SCH (21:00)
[2019-04-07] MEDS ORDERED: ATORVASTATIN 10 MG TAB PO SCH (21:00)
[2019-04-07] MEDS ORDERED: METOPROLOL XL 50 MG TAB PO SCH (22:00)
[2019-04-08] MEDS ORDERED: LEVOTHYROXINE SOD 0.05 MG TABLET PO SCH (06:30)
[2019-04-08] MEDS ORDERED: ASPIRIN EC 81 MG TAB PO SCH (09:00)
[2019-04-08] MEDS ORDERED: ASCORBIC ACID 500 MG TABLET PO SCH (09:00)
[2019-04-08] MEDS ORDERED: ZINC SULFATE 220 MG CAP PO SCH (09:00)
[2019-04-08] MEDS ORDERED: LISINOPRIL 10 MG TAB PO SCH (09:00)
[2019-04-08] MEDS ORDERED: SENOSIDES 8.6 MG TAB PO SCH (09:00)
[2019-04-08] MEDS ORDERED: RIVASTIGMINE 13.3 MG TOP SCH (09:00)
== END 2019-04-07 14:11 | disposition hospice, inpatient (51) | DRG 871 ==
LOC: ER 14:54 → ERHOLD 17:40 → 3RD-ICU 19:39 → 4TH 04-06 15:06
PROVIDERS: ADMIT Family Medicine; ATTEND Family Medicine
PROC: 5A09457 Assistance with Respiratory Ventilation, 24-96 Consecutive Hours, Continuous Positive Airway Pressure (ICD-10-PCS; principal; 2019-04-04)
DX: A41.9 Sepsis, unspecified organism (principal); R65.21 Severe sepsis with septic shock; J96.02 Acute respiratory failure with hypercapnia; J69.0 Pneumonitis due to inhalation of food and vomit; J96.01 Acute respiratory failure with hypoxia; E43 Unspecified severe protein-calorie malnutrition; E87.0 Hyperosmolality and hypernatremia; Z68.1 Body mass index [BMI] 19.9 or less, adult; N39.0 Urinary tract infection, site not specified; G20 Parkinson's disease; R13.10 Dysphagia, unspecified; E03.9 Hypothyroidism, unspecified; I10 Essential (primary) hypertension; K21.9 Gastro-esophageal reflux disease without esophagitis; B96.20 Unspecified Escherichia coli [E. coli] as the cause of diseases classified elsewhere
CPT/HCPCS: 36415; 51702; 71045; 74230; 80048; 80053; 80076; 81003; 81015; 82550; 82553; 82805; 82962; 83605; 83690; 83735; 84100; 84132; 84145; 84484; 85025; 85610; 85730; 87040; 87077; 87086; 87088; 87186; 87205; 92611; 93005; 94640; 94660; 96365; 96366; 96367; 96368; 97110; 97161; 97530; 99285; J0456; J0696; J2543; J7030

== ENCOUNTER 2019-04-07 12:46 | Inpatient (IN) | payer OTHER ==
[2019-04-07] MEDS ORDERED: MORPHINE 2 MG/ML SYR IV PRN (14:50)
[2019-04-07] MEDS ORDERED: LORazepam 2 MG/ML VIAL IV PRN (14:50)
[2019-04-07] MEDS ORDERED: SCOPOLAMINE HYDROBROMIDE PATCH TD PRN (14:51)
[2019-04-07] MEDS ORDERED: ATROPINE 1% OPTH DROPS 5ML SL PRN (14:52)
--- OUTSIDE RECORDS SUMMARY | 2019-04-07 15:18 | XMS REPORT | Clinical Summary ---
:1955 Author Organization [facility] Address [address] [place] [address] Care Team Providers Name Role Phone Tad [...] times daily. pancrelipase, Take 24,000 0 Active Lfo-Xshd-Tvau, units of (CREON) 24,000-76,000 lipase by -120,000 [...] hematoma (HCC); MD Shawn Acute encephalopathy after 04/06/2018 Social History Tobacco Use Types Packs/Day Years [...] procedure are in the results section. after 04/06/2018 Results RHYTHM STRIP - SCAN (04/16/2018 8:51 AM CDT) Narrative Performed At POC-Glucose meter (04/09/2018 1:01 PM CDT)Only the most recent of2 resultswithin the time period is included. POC-Glucose Meter 95Comment: TESTED AT 70 - 110 mg/dL [facility] [address] [address] Specimen Blood Performing Organization Address City/State/Zipcode Phone Number [address] brain without IV contrast portable (04/09/2018 6:39 AM CDT) Specimen Narrative Performed At FINAL REPORT [facility] EXAM: CT head without contrast. CLINICAL HISTORY: [...] MD Report Verified Date/Time:04/09/2018 06:49:22 Reading Location: [address] Transitional Reading Room Procedure Note Interface, [...] Report Verified Date/Time: 04/09/2018 06:49:22 Reading Location: [address] Transitional Reading Room Performing Organization Address City/[facility] Cent[facility] Phone Number GE RIS Urinalysis w/Microscopic + Reflex to Culture (04/09/2018 4:01 AM CDT) Color, UA Yellow [facility] Clarity, UA Clear [facility] Specific [place], UA 1.015 1.001 - 1.035 [facility] pH, UA 7.0 5.0 - 8.0 [facility] Protein, UA Negative Negative [facility] Glucose, UA Negative Negative [facility] Ketones, UA Negative Negative [facility] Bilirubin, UA Negative Negative [facility] Blood, UA Negative Negative [facility] Nitrite, UA Negative Negative [facility] Leukocytes, UA Small (A) Negative [facility] Urobilinogen, UA 0.2 0.2 - 1.0 mg/dL [facility] RBC, UA 1 /HPF [facility] WBC, UA 22 /HPF [facility] Mucus Rare [facility] Squam Epithel, UA <1 /HPF [facility] Amorphous Crystals Rare [facility] Specimen Source [facility] Specimen Urine Performing Organization Address City/[facility]/Zipcode Phone Number [place] [phone] [place] [address] [phone] [place] aPTT (04/09/2018 4:01 AM CDT) PTT 27.7 22.5 - 36.0 seconds [facility] Specimen Blood Performing Organization Address [facility] Centercode Phone Number [address] [address] [place] Prothrombin time/INR (04/09/2018 4:01 AM CDT) Protime 14.0 11.7 - 14.7 seconds [facility] INR 1.1 <=5.9 [facility] Specimen Blood Narrative Performed At [facility] RECOMMENDED COUMADIN/WARFARIN INR THERAPY RANGES STANDARD DOSE: 2.0 - 3.0 Includes: PROPHYLAXIS for venous thrombosis, systemic embolization; TREATMENT for venous thrombosis and/or pulmonary embolus. HIGH RISK: Target INR is 2.5-3.5 for patients with mechanical heart valves. Performing Organization Address [facility] Centercode Phone Number [address] [address] [place] Urine culture (04/09/2018 4:01 AM CDT) Result See comment [facility] Specimen Urine Narrative Performed At <10,000 col/mL skin shaggy [facility] >100,000 col/mL skin shaggy Performing Organization Address [facility] Centercode Phone Number [address] [address] CENTER Magnesium (04/09/2018 4:01 AM CDT) Magnesium 1.9 1.6 - 2.6 mg/dL [facility] Specimen Blood Narrative Performed At Once on admission and Daily AM afterwards [facility] Once on admission and Daily AM afterwards Performing Organization Address City/[facility] Centercode Phone Number [address] [address] [phone] [place] Hepatic function panel (04/09/2018 4:01 AM CDT) Protein, Total 6.3 6.0 - 8.3 gm/dL [facility] Albumin 3.8 3.5 - 5.0 g/dL [facility] Total Bilirubin 0.6 0.2 - 1.2 mg/dL [facility] Bilirubin, Direct 0.3 0.1 - 0.5 mg/dL [facility] Alkaline Phosphatase 76 40 - 150 U/L [facility] AST 17 5 - 34 U/L [facility] ALT 16 6 - 55 U/L [facility] Specimen Blood Narrative Performed At Once on admission and Daily AM afterwards [facility] Once on admission and Daily AM afterwards Performing Organization Address City/State/[facility] Centercoal Phone Number [address] [address] [place] Basic Metabolic Panel (04/09/2018 4:01 AM CDT) Sodium 137 136 - 145 meq/L [facility] Potassium 4.0 3.5 - 5.1 meq/L [facility] Chloride 107 98 - 107 meq/L [facility] CO2 22 22 - 29 meq/L [facility] BUN 16 7 - 21 mg/dL [facility] Creatinine 0.52 (L) 0.57 - 1.25 mg/dL [facility] Glucose 98 70 - 105 mg/dL [facility] Calcium 9.2 8.4 - 10.2 mg/dL [facility] EGFR 119Comment: ESTIMATED GFR IS mL/min/1.73 sq m [facility] NOT ACCURATE CREATININE [facility] CLEARANCE IN PREDICTING GLOMERULAR FILTRATION RATE. ESTIMATED GFR IS NOT APPLICABLE FOR DIALYSIS PATIENTS. Specimen Blood Narrative Performed At Once on admission and Daily AM afterwards [facility] Once on admission and Daily AM afterwards Performing Organization Address City/State/Zipcode Phone Number [facility] [address] [place] [address] CENTER after 04/06/2018 Insurance Payer Benefit Plan / Group Subscriber ID Type Phone Address MEDICARE MEDICARE A B xxxxxxxxxxx Medicare Rhona Muller Personal/Family Self 1955 [address] (Home) [place] [address] Advance Directives For more information, please contact:[place] [phone] [place], [place] [phone] Code Status Date Activated Date Inactivated Comments Full Code 04/09/2018 3:40 AM 04/09/2018 4:30 PM This code status was determined by: Patient
--- OUTSIDE RECORDS SUMMARY | 2019-04-07 15:20 | XMS REPORT ---
:1955 Author Organization [facility] Address [address] [place] [address] [address] [place] [address] Care Team Providers Name Role Phone MICHELLE [...] (BEAKER) (test 95 mg/dL 70-110 TESTED AT [facility] [address] [place] [address] [phone]) [facility] [address] POCT-GLUCOSE [id number] 07:00:00 Test Item Value Reference Range Comments POC-GLUCOSE METER (BEAKER) 105 mg/dL 70-110 TESTED AT [address] (test nbog=8827) [facility] [address] CT BRAIN WITHOUT IV CONTRAST - [id number] 06:49:00Reason for exam:-> sdhFINAL REPORT EXAM: CT [...] Sotoort Verified Date/Time: 04/09/2018 06:49:22 Reading Location: [address] Transitional Reading Room Electronically signedby: LINDSEY SOTO MD on 04/09/2018 06:49 [id number] 04:32:00 Test Item Value Reference Range Comments MAGNESIUM (BEAKER) (test prvm=793) 1.9 mg/dL 1.6-2.6 Once on admission and Daily AM afterwardsOnce on admission and Daily AM afterwardsBASIC METABOLIC [id number] 04:32:00 Test Item Value Reference Range Comments SODIUM (BEAKER) (test 137 meq/L 136-145 lybv=340) POTASSIUM (BEAKER) (test 4.0 meq/L 3.5-5.1 sxng=975) CHLORIDE (BEAKER) (test 107 meq/L 98-107 utap=631) CO2 (BEAKER) (test 22 meq/L 22-29 vdnn=171) BLOOD UREA NITROGEN 16 mg/dL 7-21 (BEAKER) (test ascj=208) CREATININE (BEAKER) (test 0.52 mg/dL 0.57-1.25 veje=184) GLUCOSE RANDOM (BEAKER) 98 mg/dL 70-105 (test pmzr=612) CALCIUM (BEAKER) (test 9.2 mg/dL 8.4-10.2 eini=995) EGFR (BEAKER) (test 119 mL/min/1.73 sq m ESTIMATED GFR IS NOT pueu=6659) ACCURATE CREATININE CLEARANCE IN PREDICTING GLOMERULAR FILTRATION RATE. ESTIMATED GFR IS NOT APPLICABLE FOR DIALYSIS PATIENTS. Once on admission and Daily AM afterwardsOnce on admission and Daily AM afterwardsHEPATIC FUNCTION [id number] 04:32:00 Test Item Value Reference Range Comments TOTAL PROTEIN (BEAKER) (test uesl=261) 6.3 gm/dL 6.0-8.3 ALBUMIN (BEAKER) (test jlqv=1027) 3.8 g/dL 3.5-5.0 BILIRUBIN TOTAL (BEAKER) (test fffa=354) 0.6 mg/dL 0.2-1.2 BILIRUBIN DIRECT (BEAKER) (test tzcv=248) 0.3 mg/dL 0.1-0.5 ALKALINE PHOSPHATASE (BEAKER) (test pdxb=607) 76 U/L 40-150 AST (SGOT) (BEAKER) (test anhm=439) 17 U/L 5-34 ALT (SGPT) (BEAKER) (test yogh=953) 16 U/L 6-55 Once on admission and Daily AM afterwardsOnce on admission and Daily AM afterwardsPROTHROMBIN TIME/[id number] 04:26:00 Test Item Value Reference Range Comments PROTIME (BEAKER) (test ytil=201) 14.0 seconds 11.7-14.7 INR (BEAKER) (test pqxv=050) 1.1 <=5.9 RECOMMENDED COUMADIN/WARFARIN INR THERAPY RANGESSTANDARD DOSE: 2.0 - 3.0 Includes: PROPHYLAXIS forvenous thrombosis, systemic embolization; TREATMENT for venous thrombosis and/or pulmonary embolus.HIGH RISK: Target INR is 2.5-3.5 for patients with mechanical heart valves.[id number] 04:26:00 Test Item Value Reference Range Comments PARTIAL THROMBOPLASTIN TIME (BEAKER) (test 27.7 seconds 22.5-36.0 fjrg=043) URINALYSIS W/ REFLEX URINE [id number] 04:21:00 Test Item Value Reference Range Comments COLOR (BEAKER) (test qstp=301) Yellow CLARITY (BEAKER) (test nbvd=121) Clear SPECIFIC GRAVITY UA (BEAKER) (test kkkc=425) 1.015 1.001-1.035 PH UA (BEAKER) (test guay=616) 7.0 5.0-8.0 PROTEIN UA (BEAKER) (test dxqc=185) Negative Negative GLUCOSE UA (BEAKER) (test rzcj=827) Negative Negative KETONES UA (BEAKER) (test mckk=174) Negative Negative BILIRUBIN UA (BEAKER) (test hkus=311) Negative Negative BLOOD UA (BEAKER) (test pfjq=956) Negative Negative NITRITE UA (BEAKER) (test gydz=785) Negative Negative LEUKOCYTE ESTERASE UA (BEAKER) (test oeam=364) Small Negative UROBILINOGEN UA (BEAKER) (test gfdu=390) 0.2 mg/dL 0.2-1.0 RBC UA (BEAKER) (test yqub=406) 1 /HPF WBC UA (BEAKER) (test bhmm=485) 22 /HPF MUCUS (BEAKER) (test imxc=4250) Rare SQUAMOUS EPITHELIAL (BEAKER) (test rsmv=363) < /HPF AMORPHOUS CRYSTALS (BEAKER) (test ooto=3378) Rare SOURCE(BEAKER) (test onla=5109)
--- NOTE | 2019-04-08 11:22 | P.HP ---
Certification for Inpatient Patient admitted to: Inpatient With expected LOS: >2 Midnights Patient will require the following post-hospital care: Hospice Practitioner: I am a practitioner with admitting privileges, knowledge of patient current condition, hospital course, and medical plan of care. Services: Services provided to patient in accordance with Admission requirements found in Title 42 Section 412.3 of the Code of Federal Regulations Patient History Date of Service: 04/08/19 History of Present Illness: 64-year-old female with significant past medical history who is admitted to the hospital now with hospice with terminal diagnosis of worsening Parkinson dementia along with pneumonia secondary to aspiration. Allergies lidocaine [From Xylocaine] Allergy (Verified 03/11/19 16:03) Hives Home Medications: Amitriptyline HCl 1 tab PO BEDTIME 03/11/19 Aspirin [Aspir-Low] 1 tab PO DAILY 03/11/19 Atorvastatin Calcium 10 mg PO BEDTIME 03/11/19 Carbidopa/Levodopa [Carbidopa-Levodopa 25-100 Tab] 1 tab PO QID 03/11/19 Entacapone 1 tab PO QID 03/11/19 Estradiol [Estrace] 1 tab PO DAILY 03/11/19 Folic Acid 1 tab PO BID 03/11/19 Levothyroxine [Synthroid*] 50 mcg PO DAILY 03/11/19 Lisinopril 1 tab PO DAILY 03/11/19 Meloxicam 1 tab PO DAILY 03/11/19 Rivastigmine 13.3 mg TOP DAILY 03/11/19 Sennosides 8.6 mg PO DAILY 03/11/19 Temazepam 1 cap PO DAILYPRN PRN 03/11/19 Zinc 50 mg PO DAILY 03/11/19 Ascorbic Acid [Vitamin C with Amanda Hips] 1 tab PO DAILY 04/04/19 Creon 6000 Units 2 tab PO TID 04/04/19 Iron 65mg Ferrous Sulfate 325mg 1 tab PO DAILY 04/04/19 Melatonin/Lemon [place] Extr [Hm Melatonin-Lemon [place] Tablet] 1 tab PO BEDTIME 04/04/19 Nuedexta 20-10mg 1 cap PO Q12H 04/04/19 Metoprolol Succinate 25 mg PO Q12H 04/05/19 Metoprolol Succinate 50 mg PO SEECOM 04/05/19 - Past Medical/Surgical History Diabetic: No -: Anemia -: Cognitive communication deficit -: cognitive impairment -: depression -: dysphagia -: gerd -: hyperlipidemia -: htn -: hypothyroidism -: encephalopathy -: muscle weakness -: parkinson's -: nerve stimulator for parkinson's -: Hysterectomy -: cholecystectomy Psychosocial/ Personal History: Lives with the at home, takes care of her - Social History Alcohol use: No CD- Drugs: No Caffeine use: No Review of Systems 10-point ROS is otherwise unremarkable Physical Examination - Vital Signs Temperature: 97.9 F Blood Pressure: 127/62 Pulse: 62 Respirations: 18 Pulse Ox (%): 95 - Physical Exam General: In no apparent distress, Comatose Respiratory: Diminished, Expiratory wheezes, Inspiratory wheezes Cardiovascular: Regular rate/rhythm, Normal S1 S2 Gastrointestinal: Normal bowel sounds, No tenderness Musculoskeletal: No tenderness Integumentary: No rashes Neurological: Abnormal reflexes Lymphatics: No axilla or inguinal lymphadenopathy Assessment and Plan - Problems (Diagnosis) (1) Hospice care Current Visit: Yes Status: Acute (2) PNA (pneumonia) Current Visit: No Status: Acute Qualifiers: Pneumonia type: aspiration pneumonia Aspiration pneumonia type: due to regurgitated food Laterality: left Lung location: lower lobe of lung Qualified Code(s): J69.0 - Pneumonitis due to inhalation of food and vomit (3) Chronic GERD Current Visit: No Status: Chronic (4) Hypertension Current Visit: No Status: Chronic Qualifiers: Hypertension type: essential hypertension Qualified Code(s): I10 - Essential (primary) hypertension (5) Hypothyroidism Current Visit: No Status: Chronic Qualifiers: Hypothyroidism type: acquired Qualified Code(s): E03.9 - Hypothyroidism, unspecified (6) Parkinsons disease Current Visit: No Status: Chronic - Plan Patient on inpatient hospice care with 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 Will continue with comfort measures at this time. Currently patient comfortable Discharge Plan: Home Plan to discharge in: Greater than 2 days - Advance Directives Does patient have a Living Will: Yes Does patient have a Durable POA for Healthcare: Yes - Code Status/Comfort Care Code Status Assessed: Yes Critical Care: No
--- NOTE | 2019-04-09 10:37 | P.PN ---
Subjective Date of Service: 04/09/19 Subjective: No new changes Review of Systems 10-point ROS is otherwise unremarkable Physical Examination - Vital Signs Temperature: 98.3 F Blood Pressure: 131/61 Pulse: 77 Respirations: 16 Pulse Ox (%): 93 - Physical Exam General: Comatose Neck: JVD distended Respiratory: Normal air movement, Crackles/rales, Rhonchi/gurgles Cardiovascular: Regular rate/rhythm, Normal S1 S2 Gastrointestinal: Normal bowel sounds, No tenderness Musculoskeletal: No tenderness Integumentary: No rashes Lymphatics: No axilla or inguinal lymphadenopathy - Studies Medications List Reviewed: Yes Assessment And Plan - Current Problems (Diagnosis) (1) Hospice care Current Visit: Yes Status: Acute (2) PNA (pneumonia) Current Visit: No Status: Acute Qualifiers: Pneumonia type: aspiration pneumonia Aspiration pneumonia type: due to regurgitated food Laterality: left Lung location: lower lobe of lung Qualified Code(s): J69.0 - Pneumonitis due to inhalation of food and vomit (3) Chronic GERD Current Visit: No Status: Chronic (4) Hypertension Current Visit: No Status: Chronic Qualifiers: Hypertension type: essential hypertension Qualified Code(s): I10 - Essential (primary) hypertension (5) Hypothyroidism Current Visit: No Status: Chronic Qualifiers: Hypothyroidism type: acquired Qualified Code(s): E03.9 - Hypothyroidism, unspecified (6) Parkinsons disease Current Visit: No Status: Chronic - Plan Patient on inpatient hospice care with 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 Will continue with comfort measures at this time. Currently patient comfortable Discharge Plan: Other Plan to discharge in: Greater than 2 days - Code Status/Comfort Care Code Status Assessed: Yes Critical Care: No
--- NOTE | 2019-04-10 10:52 | P.PN ---
Subjective Date of Service: 04/10/19 Subjective: No new changes Review of Systems 10-point ROS is otherwise unremarkable Physical Examination - Vital Signs Temperature: 97.9 F Blood Pressure: 139/63 Pulse: 88 Respirations: 18 Pulse Ox (%): 95 - Physical Exam General: Unresponsive Neck: JVD distended Respiratory: Crackles/rales, Expiratory wheezes, Inspiratory wheezes Cardiovascular: Regular rate/rhythm Gastrointestinal: Normal bowel sounds - Studies Medications List Reviewed: Yes Assessment And Plan - Current Problems (Diagnosis) (1) Hospice care Current Visit: Yes Status: Acute (2) PNA (pneumonia) Current Visit: No Status: Acute Qualifiers: Pneumonia type: aspiration pneumonia Aspiration pneumonia type: due to regurgitated food Laterality: left Lung location: lower lobe of lung Qualified Code(s): J69.0 - Pneumonitis due to inhalation of food and vomit (3) Chronic GERD Current Visit: No Status: Chronic (4) Hypertension Current Visit: No Status: Chronic Qualifiers: Hypertension type: essential hypertension Qualified Code(s): I10 - Essential (primary) hypertension (5) Hypothyroidism Current Visit: No Status: Chronic Qualifiers: Hypothyroidism type: acquired Qualified Code(s): E03.9 - Hypothyroidism, unspecified (6) Parkinsons disease Current Visit: No Status: Chronic - Plan Patient on inpatient hospice care with 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 Will continue with comfort measures at this time. Currently patient comfortable Discharge Plan: Home Plan to discharge in: Greater than 2 days - Code Status/Comfort Care Code Status Assessed: Yes Critical Care: No
[2019-04-14] MEDS ORDERED: MORPHINE 2 MG/ML SYR IV PRN (07:45)
[2019-04-14] MEDS ORDERED: LORazepam 2 MG/ML VIAL IV PRN (07:45)
== END 2019-04-14 15:29 | disposition hospice, home (50) | DRG 951 ==
LOC: 4TH 12:46
PROVIDERS: ADMIT Family Medicine; ATTEND Family Medicine
DX: Z51.5 Encounter for palliative care (principal); J69.0 Pneumonitis due to inhalation of food and vomit; K21.9 Gastro-esophageal reflux disease without esophagitis; I10 Essential (primary) hypertension; E03.9 Hypothyroidism, unspecified; G20 Parkinson's disease; F02.80 Dementia in other diseases classified elsewhere, unspecified severity, without behavioral disturbance, psychotic disturbance, mood disturbance, and anxiety; Z79.82 Long term (current) use of aspirin
CPT/HCPCS: J2270